=== PATIENT | female | born 1950 | race Caucasian/White ===

== ENCOUNTER 2023-02-05 22:38 | Inpatient (IN) | payer MEDICARE ==
[2023-02-05] MEDS ORDERED: ONDANSETRON 4 MG/2 ML VIAL IVP STA (22:53)
[2023-02-05] MEDS ORDERED: SODIUM CHLORIDE 0.9% 500 ML 500 ML IV STA (22:53)
[2023-02-05 23:00] LABS: Glucose,Whole Blood 280 mg/dL (70-110)
--- NOTE | 2023-02-05 23:07 | ED ---
General Adult HPI - General Source: patient, RN notes reviewed, old records reviewed Mode of arrival: ambulatory Limitations: no limitations <Herminio Marques - Last Filed: 02/08/23 07:01> <Sunil Queen - Last Filed: 02/15/23 04:56> - General Chief complaint: Abdominal Pain Stated complaint: Abdominal pain, Vomiting Time Seen by Provider: 02/05/23 22:46 - History of Present Illness Initial comments: 72-year-old female presenting for epigastric abdominal pain which is been present for the past 2 days with associated vomiting. No diarrhea. Patient reports that she had a normal bowel movement yesterday. No chest pain. No fever. She does have diabetes and states that her blood sugars have been fluctu ating between 60 and 300. (Herminio Marques) - Related Data Home Medications Medication Instructions Recorded Confirmed ARIPiprazole [Abilify] 15 mg PO DAILY 02/06/23 02/06/23 Alendronate Sodium [Fosamax] 70 mg PO Q7D 02/06/23 02/06/23 Atorvastatin [Lipitor] 40 mg PO HS 02/06/23 02/06/23 Escitalopram [Lexapro] 20 mg PO DAILY 02/06/23 02/06/23 Gabapentin 600 mg PO BID 02/06/23 02/06/23 Insulin Lispro [humaLOG Kwikpen] 6 unit SQ AC-TID 02/06/23 02/06/23 Isosorbide Mononitrate ER [Imdur] 60 mg PO DAILY 02/06/23 02/06/23 Losartan [Cozaar] 50 mg PO DAILY 02/06/23 02/06/23 Metoprolol Succinate (ER) [Toprol 50 mg PO DAILY 02/06/23 02/06/23 XL] Omeprazole 40 mg PO AC-BRKFST 02/06/23 02/06/23 amLODIPine [Norvasc] 5 mg PO DAILY 02/06/23 02/06/23 buPROPion XL [Wellbutrin XL] 300 mg PO DAILY 02/06/23 02/06/23 haloperidoL [Haldol] 1 mg PO HS 02/06/23 02/06/23 Allergies Allergy/AdvReac Type Severity Reaction Status Date / Time fentanyl Allergy Rash/Hives Verified 07/03/23 08:36 Review of Systems ROS Other: All systems not noted in ROS Statement are negative. <Herminio Marques Russell - Last Filed: 02/08/23 07:01> ROS Other: All systems not noted in ROS Statement are negative. <Sunil Queen - Last Filed: 02/15/23 04:56> ROS Statement: Those systems with pertinent positive or pertinent negative responses have been documented in the HPI. Past Medical History Past Medical History: Diabetes Mellitus Additional Past Medical History / Comment(s): early stage dementia History of Any Multi-Drug Resistant Organisms: None Reported Past Surgical History: No Surgical Hx Reported Past Psychological History: Depression, Schizophrenia Smoking Status: Never smoker Past Alcohol Use History: None Reported Past Drug Use History: None Reported <Herminio Marques Russell - Last Filed: 02/08/23 07:01> General Exam Limitations: no limitations General appearance: alert, in no apparent distress Head exam: Present: atraumatic, normocephalic Eye exam: Present: normal appearance, PERRL ENT exam: Present: normal exam Neck exam: Present: normal inspection. Absent: tenderness, meningismus Respiratory exam: Present: normal lung sounds bilaterally. Absent: respiratory distress, wheezes Cardiovascular Exam: Present: regular rate, normal rhythm GI/Abdominal exam: Present: soft, tenderness (Epigastric). Absent: distended, guarding, rebound Extremities exam: Present: normal inspection, normal capillary refill. Absent: pedal edema, calf tenderness Neurological exam: Present: alert, oriented X3, CN II-XII intact. Absent: motor sensory deficit Psychiatric exam: Present: normal affect, normal mood Skin exam: Present: warm, dry, intact. Absent: cyanosis, diaphoretic <Herminio Marques - Last Filed: 02/08/23 07:01> Course Vital Signs 02/05/23 02/05/23 02/05/23 22:41 23:36 23:38 Temperature 97.8 F Pulse Rate 85 71 Pulse Rate [ Pulse Oximetery ] Respiratory 18 18 Rate Blood Pressure 125/65 120/64 Blood Pressure [Right Arm] O2 Sat by Pulse 95 96 Oximetry 02/06/23 02/06/23 02/06/23 01:43 04:48 07:00 Temperature 98 F 98.0 F Pulse Rate 64 67 75 Pulse Rate [ 67 Pulse Oximetery ] Respiratory 18 18 16 Rate Blood Pressure 140/66 164/79 164/79 Blood Pressure 144/79 [Right Arm] O2 Sat by Pulse 97 95 95 Oximetry Medical Decision Making - Lab Data Result diagrams: 02/05/23 23:02 02/05/23 23:02 <MarinaviktoriakylieHerminio Russell - Last Filed: 02/08/23 07:01> - Lab Data Result diagrams: 02/14/23 05:46 02/14/23 05:46 <Sunil Queen - Last Filed: 02/15/23 04:56> - Medical Decision Making Was pt. sent in by a medical professional or institution (, PA, MIDDLE SCHOOL TECHNOLOGY TEACHER, urgent care, hospital, or fpc...) When possible be specific @ -No Did you speak to anyone other than the patient for history (EMS, parent, family, police, friend...)? What history was obtained from this source @ -No Did you review nursing and triage notes (agree or disagree)? Why? @ -I reviewed and agree with nursing and triage notes Were old charts reviewed (outside hosp., previous admission, EMS record, old EKG, old radiological studies, urgent care reports/EKG's, fpc records)? Report findings @ -No old charts were reviewed Differential Diagnosis (chest pain, altered mental status, abdominal pain women, abdominal pain men, vaginal bleeding, weakness, fever, dyspnea, syncope, headache, dizziness, GI bleed, back pain, seizure, CVA, palpatations, mental health, musculoskeletal)? @ -[Differential Abdominal Pain Women: Appendicitis, Cholecystitis, diverticulosis, ischemic bowel, pancreatitis, hepatitis, UTI, gastroenteritis, AAA, incarcerated hernia, bowel obstruction, constipation, inflammatory bowel, hepatitis, peptic ulcer disease, splenic infar ction, perforated viscus, this is not meant to be an all-inclusive list EKG interpreted by me (3pts min.). @ EKG: Sinus rhythm rate of 79, SC interval 133, QRS duration 100, QTC 458, no ST segment elevation X-rays interpreted by me (1pt min.). @ -None done CT interpreted by me (1pt min.). @ -None done U/S interpreted by me (1pt. min.). @ -None done What testing was considered but not performed or refused? (CT, X-rays, U/S, labs )? Why? @ -None What meds were considered but not given or refused? Why? @ -None Did you discuss the management of the patient with other professionals (professionals i.e. , PA, MIDDLE SCHOOL TECHNOLOGY TEACHER, lab, RT, psych nurse, social economist, fire extinguisher installer, teacher, safety patrol officer, vocational case manager)? Give summary @ -No Was smoking cessation discussed for >3mins.? @ -No Was critical care preformed (if so, how long)? @ -No Were there social determinants of health that impacted care today? How? (Homelessness, low income, unemployed, alcoholism, drug addiction, transportation, low edu. Level, literacy, decrease access to med. care, senior care, rehab)? @ -No Was there de-escalation of care discussed even if they declined (Discuss DNR or withdrawal of care, Hospice)? DNR status @ -No What co-morbidities impacted this encounter? (DM, HTN, Smoking, COPD, CAD, Cancer, CVA, ARF, Chemo, Hep., AIDS, mental health diagnosis, sleep apnea, morbid obesity)? @ -None Was patient admitted / discharged? Hospital course, mention meds given and route, prescriptions, significant lab abnormalities, going to OR and other pertinent info. @ Patient Shift Change Awaiting CT of Abdomen Pelvis and Reevaluation. Dr. Queen ([facility]) Was patient admitted / discharged? Hospital course, mention meds given and route, prescriptions, significant lab abnormalities, going to OR and other pertinent info. @ -[I reevaluated the patient after all of her studies were complete and she is not feeling much better. She still was not really tolerating oral intake. In light of this she'll be admitted for further hydration and to have surgical consultation related to her pain. Undiagnosed new problem with uncertain prognosis? @ -[No] Drug Therapy requiring intensive monitoring for toxicity (Heparin, Nitro, Insulin, Cardizem)? @ -[No] Were any procedures done? @ -[No] Diagnosis/symptom? @ -[Acute on chronic abdominal pain Acute enteritis Lactic acidosis Acute, or Chronic, or Acute on Chronic? @ -[default] Uncomplicated (without systemic symptoms) or Complicated (systemic symptoms)? @ -[Uncomplicated Side effects of treatment? @ -[No] Exacerbation, Progression, or Severe Exacerbation? @ -[No] Poses a threat to life or bodily function? How? (Chest pain, USA, CA, pneumonia, PE, COPD, DKA, ARF, appy, cholecystitis, CVA, Diverticulitis, Homicidal, Suicidal, threat to staff... and all critical care pts) @ -[No] (Sunil Queen) - Lab Data Lab Results 02/05/23 02/05/23 02/05/23 Range/Units 22:58 23:02 23:02 WBC 8.2 (3.8-10.6) k/uL RBC 4.23 (3.80-5.40) m/uL Hgb 12.8 (11.4-16.0) gm/dL Hct 38.7 (34.0-46.0) % MCV 91.5 (80.0-100.0) fL MCH 30.2 (25.0-35.0) pg MCHC 33.0 (31.0-37.0) g/dL RDW 13.4 (11.5-15.5) % Plt Count 228 (150-450) k/uL MPV 8.0 Immature Gran % (Auto) % Absolute Nucleated RBC % Neutrophils % 68 % Lymphocytes % 21 % Monocytes % 6 % Eosinophils % 4 % Basophils % 0 % Immature Gran # X 10*3/uL Neutrophils # 5.5 (1.3-7.7) k/uL Lymphocytes # 1.7 (1.0-4.8) k/uL Monocytes # 0.5 (0-1.0) k/uL Eosinophils # 0.3 (0-0.7) k/uL Basophils # 0.0 (0-0.2) k/uL NRBC/100 WBC Diff (0.00-0.01) X 10*3/uL PT 10.4 (9.0-12.0) sec INR 1.0 (<1.2) APTT 22.0 (22.0-30.0) sec Sodium (137-145) mmol/L Potassium (3.5-5.1) mmol/L Chloride (98-107) mmol/L Carbon Dioxide (22-30) mmol/L Anion Gap mmol/L BUN (7-17) mg/dL Creatinine (0.52-1.04) mg/dL Est GFR (CKD-EPI) (>=60) Est GFR (CKD-EPI)AfAm (>60 ml/min/1.73 sqM) Est GFR (CKD-EPI)NonAf (>60 ml/min/1.73 sqM) BUN/Creatinine Ratio (12.00-20.00) Ratio Glucose (74-99) mg/dL POC Glucose (mg/dL) 280 H (70-110) mg/dL POC Glu Size Marker ID Markus Gustafson Lactic Ac Sepsis Rflx Plasma Lactic Acid Florentin (0.7-2.0) mmol/L Calcium (8.4-10.2) mg/dL Phosphorus (2.5-4.5) mg/dL Magnesium (1.6-2.3) mg/dL Total Bilirubin (0.2-1.3) mg/dL AST (14-36) U/L ALT (4-34) U/L Alkaline Phosphatase (38-126) U/L Troponin I (0.000-0.034) ng/mL Total Protein (6.3-8.2) g/dL Albumin (3.5-5.0) g/dL Globulin g/dL Albumin/Globulin Ratio Amylase (30-110) U/L Lipase (23-300) U/L 02/05/23 02/05/23 02/05/23 Range/Units 23:02 23:02 23:02 WBC (3.8-10.6) k/uL RBC (3.80-5.40) m/uL Hgb (11.4-16.0) gm/dL Hct (34.0-46.0) % MCV (80.0-100.0) fL MCH (25.0-35.0) pg MCHC (31.0-37.0) g/dL RDW (11.5-15.5) % Plt Count (150-450) k/uL MPV Immature Gran % (Auto) % Absolute Nucleated RBC % Neutrophils % % Lymphocytes % % Monocytes % % Eosinophils % % Basophils % % Immature Gran # X 10*3/uL Neutrophils # (1.3-7.7) k/uL Lymphocytes # (1.0-4.8) k/uL Monocytes # (0-1.0) k/uL Eosinophils # (0-0.7) k/uL Basophils # (0-0.2) k/uL NRBC/100 WBC Diff (0.00-0.01) X 10*3/uL PT (9.0-12.0) sec INR (<1.2) APTT (22.0-30.0) sec Sodium 132 L (137-145) mmol/L Potassium 4.2 (3.5-5.1) mmol/L Chloride 101 (98-107) mmol/L Carbon Dioxide 22 (22-30) mmol/L Anion Gap 9 mmol/L BUN 17 (7-17) mg/dL Creatinine 0.52 (0.52-1.04) mg/dL Est GFR (CKD-EPI) (>=60) Est GFR (CKD-EPI)AfAm >90 (>60 ml/min/1.73 sqM) Est GFR (CKD-EPI)NonAf >90 (>60 ml/min/1.73 sqM) BUN/Creatinine Ratio (12.00-20.00) Ratio Glucose 283 H (74-99) mg/dL POC Glucose (mg/dL) (70-110) mg/dL POC Glu Size Marker ID Lactic Ac Sepsis Rflx Plasma Lactic Acid Florentin 4.0 H* (0.7-2.0) mmol/L Calcium 9.3 (8.4-10.2) mg/dL Phosphorus (2.5-4.5) mg/dL Magnesium (1.6-2.3) mg/dL Total Bilirubin 0.6 (0.2-1.3) mg/dL AST 32 (14-36) U/L ALT 24 (4-34) U/L Alkaline Phosphatase 87 (38-126) U/L Troponin I <0.012 (0.000-0.034) ng/mL Total Protein 5.7 L (6.3-8.2) g/dL Albumin 3.1 L (3.5-5.0) g/dL Globulin g/dL Albumin/Globulin Ratio Amylase 85 (30-110) U/L Lipase 223 (23-300) U/L 02/05/23 02/06/23 02/06/23 Range/Units 23:44 02:24 03:07 WBC (3.8-10.6) k/uL RBC (3.80-5.40) m/uL Hgb (11.4-16.0) gm/dL Hct (34.0-46.0) % MCV (80.0-100.0) fL MCH (25.0-35.0) pg MCHC (31.0-37.0) g/dL RDW (11.5-15.5) % Plt Count (150-450) k/uL MPV Immature Gran % (Auto) % Absolute Nucleated RBC % Neutrophils % % Lymphocytes % % Monocytes % % Eosinophils % % Basophils % % Immature Gran # X 10*3/uL Neutrophils # (1.3-7.7) k/uL Lymphocytes # (1.0-4.8) k/uL Monocytes # (0-1.0) k/uL Eosinophils # (0-0.7) k/uL Basophils # (0-0.2) k/uL NRBC/100 WBC Diff (0.00-0.01) X 10*3/uL PT (9.0-12.0) sec INR (<1.2) APTT (22.0-30.0) sec Sodium (137-145) mmol/L Potassium (3.5-5.1) mmol/L Chloride (98-107) mmol/L Carbon Dioxide (22-30) mmol/L Anion Gap mmol/L BUN (7-17) mg/dL Creatinine (0.52-1.04) mg/dL Est GFR (CKD-EPI) (>=60) Est GFR (CKD-EPI)AfAm (>60 ml/min/1.73 sqM) Est GFR (CKD-EPI)NonAf (>60 ml/min/1.73 sqM) BUN/Creatinine Ratio (12.00-20.00) Ratio Glucose (74-99) mg/dL POC Glucose (mg/dL) (70-110) mg/dL POC Glu Size Marker ID Lactic Ac Sepsis Rflx Y Y Plasma Lactic Acid Florentin 3.3 H* (0.7-2.0) mmol/L Calcium (8.4-10.2) mg/dL Phosphorus (2.5-4.5) mg/dL Magnesium (1.6-2.3) mg/dL Total Bilirubin (0.2-1.3) mg/dL AST (14-36) U/L ALT (4-34) U/L Alkaline Phosphatase (38-126) U/L Troponin I (0.000-0.034) ng/mL Total Protein (6.3-8.2) g/dL Albumin (3.5-5.0) g/dL Globulin g/dL Albumin/Globulin Ratio Amylase (30-110) U/L Lipase (23-300) U/L 02/06/23 02/06/23 02/06/23 Range/Units 04:52 06:20 06:46 WBC (3.8-10.6) k/uL RBC (3.80-5.40) m/uL Hgb (11.4-16.0) gm/dL Hct (34.0-46.0) % MCV (80.0-100.0) fL MCH (25.0-35.0) pg MCHC (31.0-37.0) g/dL RDW (11.5-15.5) % Plt Count (150-450) k/uL MPV Immature Gran % (Auto) % Absolute Nucleated RBC % Neutrophils % % Lymphocytes % % Monocytes % % Eosinophils % % Basophils % % Immature Gran # X 10*3/uL Neutrophils # (1.3-7.7) k/uL Lymphocytes # (1.0-4.8) k/uL Monocytes # (0-1.0) k/uL Eosinophils # (0-0.7) k/uL Basophils # (0-0.2) k/uL NRBC/100 WBC Diff (0.00-0.01) X 10*3/uL PT (9.0-12.0) sec INR (<1.2) APTT (22.0-30.0) sec Sodium (137-145) mmol/L Potassium (3.5-5.1) mmol/L Chloride (98-107) mmol/L Carbon Dioxide (22-30) mmol/L Anion Gap mmol/L BUN (7-17) mg/dL Creatinine (0.52-1.04) mg/dL Est GFR (CKD-EPI) (>=60) Est GFR (CKD-EPI)AfAm (>60 ml/min/1.73 sqM) Est GFR (CKD-EPI)NonAf (>60 ml/min/1.73 sqM) BUN/Creatinine Ratio (12.00-20.00) Ratio Glucose (74-99) mg/dL POC Glucose (mg/dL) 109 (70-110) mg/dL POC Glu Size Marker ID Fernanda Lund Lactic Ac Sepsis Rflx Y Plasma Lactic Acid Florentin 2.7 H* (0.7-2.0) mmol/L Calcium (8.4-10.2) mg/dL Phosphorus (2.5-4.5) mg/dL Magnesium (1.6-2.3) mg/dL Total Bilirubin (0.2-1.3) mg/dL AST (14-36) U/L ALT (4-34) U/L Alkaline Phosphatase (38-126) U/L Troponin I (0.000-0.034) ng/mL Total Protein (6.3-8.2) g/dL Albumin (3.5-5.0) g/dL Globulin g/dL Albumin/Globulin Ratio Amylase (30-110) U/L Lipase (23-300) U/L 02/06/23 02/06/23 02/06/23 Range/Units 09:15 10:02 12:16 WBC 6.3 (3.8-10.6) k/uL RBC 4.26 (3.80-5.40) m/uL Hgb 13.2 (11.4-16.0) gm/dL Hct 38.6 (34.0-46.0) % MCV 90.8 (80.0-100.0) fL MCH 31.0 (25.0-35.0) pg MCHC 34.2 (31.0-37.0) g/dL RDW 13.5 (11.5-15.5) % Plt Count 203 (150-450) k/uL MPV 9.0 Immature Gran % (Auto) % Absolute Nucleated RBC % Neutrophils % % Lymphocytes % % Monocytes % % Eosinophils % % Basophils % % Immature Gran # X 10*3/uL Neutrophils # (1.3-7.7) k/uL Lymphocytes # (1.0-4.8) k/uL Monocytes # (0-1.0) k/uL Eosinophils # (0-0.7) k/uL Basophils # (0-0.2) k/uL NRBC/100 WBC Diff (0.00-0.01) X 10*3/uL PT (9.0-12.0) sec INR (<1.2) APTT (22.0-30.0) sec Sodium (137-145) mmol/L Potassium (3.5-5.1) mmol/L Chloride (98-107) mmol/L Carbon Dioxide (22-30) mmol/L Anion Gap mmol/L BUN (7-17) mg/dL Creatinine (0.52-1.04) mg/dL Est GFR (CKD-EPI) (>=60) Est GFR (CKD-EPI)AfAm (>60 ml/min/1.73 sqM) Est GFR (CKD-EPI)NonAf (>60 ml/min/1.73 sqM) BUN/Creatinine Ratio (12.00-20.00) Ratio Glucose (74-99) mg/dL POC Glucose (mg/dL) (70-110) mg/dL POC Glu Size Marker ID Lactic Ac Sepsis Rflx Y Plasma Lactic Acid Florentin 3.2 H* (0.7-2.0) mmol/L Calcium (8.4-10.2) mg/dL Phosphorus (2.5-4.5) mg/dL Magnesium (1.6-2.3) mg/dL Total Bilirubin (0.2-1.3) mg/dL AST (14-36) U/L ALT (4-34) U/L Alkaline Phosphatase (38-126) U/L Troponin I (0.000-0.034) ng/mL Total Protein (6.3-8.2) g/dL Albumin (3.5-5.0) g/dL Globulin g/dL Albumin/Globulin Ratio Amylase (30-110) U/L Lipase (23-300) U/L 02/06/23 02/06/23 02/06/23 Range/Units 12:16 12:16 12:45 WBC (3.8-10.6) k/uL RBC (3.80-5.40) m/uL Hgb (11.4-16.0) gm/dL Hct (34.0-46.0) % MCV (80.0-100.0) fL MCH (25.0-35.0) pg MCHC (31.0-37.0) g/dL RDW (11.5-15.5) % Plt Count (150-450) k/uL MPV Immature Gran % (Auto) % Absolute Nucleated RBC % Neutrophils % % Lymphocytes % % Monocytes % % Eosinophils % % Basophils % % Immature Gran # X 10*3/uL Neutrophils # (1.3-7.7) k/uL Lymphocytes # (1.0-4.8) k/uL Monocytes # (0-1.0) k/uL Eosinophils # (0-0.7) k/uL Basophils # (0-0.2) k/uL NRBC/100 WBC Diff (0.00-0.01) X 10*3/uL PT (9.0-12.0) sec INR (<1.2) APTT (22.0-30.0) sec Sodium 137 (137-145) mmol/L Potassium 4.0 (3.5-5.1) mmol/L Chloride 107 (98-107) mmol/L Carbon Dioxide 25 (22-30) mmol/L Anion Gap 5 mmol/L BUN 9 (7-17) mg/dL Creatinine 0.40 L (0.52-1.04) mg/dL Est GFR (CKD-EPI) (>=60) Est GFR (CKD-EPI)AfAm >90 (>60 ml/min/1.73 sqM) Est GFR (CKD-EPI)NonAf >90 (>60 ml/min/1.73 sqM) BUN/Creatinine Ratio (12.00-20.00) Ratio Glucose 162 H (74-99) mg/dL POC Glucose (mg/dL) (70-110) mg/dL POC Glu Size Marker ID Lactic Ac Sepsis Rflx Y Plasma Lactic Acid Florentin 2.7 H* (0.7-2.0) mmol/L Calcium 8.6 (8.4-10.2) mg/dL Phosphorus 2.8 (2.5-4.5) mg/dL Magnesium 1.2 L (1.6-2.3) mg/dL Total Bilirubin 0.7 (0.2-1.3) mg/dL AST 26 (14-36) U/L ALT 21 (4-34) U/L Alkaline Phosphatase 71 (38-126) U/L Troponin I (0.000-0.034) ng/mL Total Protein 5.2 L (6.3-8.2) g/dL Albumin 2.9 L (3.5-5.0) g/dL Globulin 2.3 g/dL Albumin/Globulin Ratio 1.3 Amylase (30-110) U/L Lipase (23-300) U/L 02/06/23 02/06/23 02/06/23 Range/Units 15:28 16:57 20:07 WBC (3.8-10.6) k/uL RBC (3.80-5.40) m/uL Hgb (11.4-16.0) gm/dL Hct (34.0-46.0) % MCV (80.0-100.0) fL MCH (25.0-35.0) pg MCHC (31.0-37.0) g/dL RDW (11.5-15.5) % Plt Count (150-450) k/uL MPV Immature Gran % (Auto) % Absolute Nucleated RBC % Neutrophils % % Lymphocytes % % Monocytes % % Eosinophils % % Basophils % % Immature Gran # X 10*3/uL Neutrophils # (1.3-7.7) k/uL Lymphocytes # (1.0-4.8) k/uL Monocytes # (0-1.0) k/uL Eosinophils # (0-0.7) k/uL Basophils # (0-0.2) k/uL NRBC/100 WBC Diff (0.00-0.01) X 10*3/uL PT (9.0-12.0) sec INR (<1.2) APTT (22.0-30.0) sec Sodium (137-145) mmol/L Potassium (3.5-5.1) mmol/L Chloride (98-107) mmol/L Carbon Dioxide (22-30) mmol/L Anion Gap mmol/L BUN (7-17) mg/dL Creatinine (0.52-1.04) mg/dL Est GFR (CKD-EPI) (>=60) Est GFR (CKD-EPI)AfAm (>60 ml/min/1.73 sqM) Est GFR (CKD-EPI)NonAf (>60 ml/min/1.73 sqM) BUN/Creatinine Ratio (12.00-20.00) Ratio Glucose (74-99) mg/dL POC Glucose (mg/dL) 96 96 (70-110) mg/dL POC Glu Size Marker ID Tuan, Trang Magno, Odalis Lactic Ac Sepsis Rflx Plasma Lactic Acid Florentin 1.8 (0.7-2.0) mmol/L Calcium (8.4-10.2) mg/dL Phosphorus (2.5-4.5) mg/dL Magnesium (1.6-2.3) mg/dL Total Bilirubin (0.2-1.3) mg/dL AST (14-36) U/L ALT (4-34) U/L Alkaline Phosphatase (38-126) U/L Troponin I (0.000-0.034) ng/mL Total Protein (6.3-8.2) g/dL Albumin (3.5-5.0) g/dL Globulin g/dL Albumin/Globulin Ratio Amylase (30-110) U/L Lipase (23-300) U/L 02/07/23 02/07/23 02/07/23 Range/Units 02:12 06:15 11:39 WBC (3.8-10.6) k/uL RBC (3.80-5.40) m/uL Hgb (11.4-16.0) gm/dL Hct (34.0-46.0) % MCV (80.0-100.0) fL MCH (25.0-35.0) pg MCHC (31.0-37.0) g/dL RDW (11.5-15.5) % Plt Count (150-450) k/uL MPV Immature Gran % (Auto) % Absolute Nucleated RBC % Neutrophils % % Lymphocytes % % Monocytes % % Eosinophils % % Basophils % % Immature Gran # X 10*3/uL Neutrophils # (1.3-7.7) k/uL Lymphocytes # (1.0-4.8) k/uL Monocytes # (0-1.0) k/uL Eosinophils # (0-0.7) k/uL Basophils # (0-0.2) k/uL NRBC/100 WBC Diff (0.00-0.01) X 10*3/uL PT (9.0-12.0) sec INR (<1.2) APTT (22.0-30.0) sec Sodium (137-145) mmol/L Potassium (3.5-5.1) mmol/L Chloride (98-107) mmol/L Carbon Dioxide (22-30) mmol/L Anion Gap mmol/L BUN (7-17) mg/dL Creatinine (0.52-1.04) mg/dL Est GFR (CKD-EPI) (>=60) Est GFR (CKD-EPI)AfAm (>60 ml/min/1.73 sqM) Est GFR (CKD-EPI)NonAf (>60 ml/min/1.73 sqM) BUN/Creatinine Ratio (12.00-20.00) Ratio Glucose (74-99) mg/dL POC Glucose (mg/dL) 102 95 199 H (70-110) mg/dL POC Glu Size Marker MILO Kiran, Odalis Kiran, Odalis Jackson, Bernadette Lactic Ac Sepsis Rflx Plasma Lactic Acid Florentin (0.7-2.0) mmol/L Calcium (8.4-10.2) mg/dL Phosphorus (2.5-4.5) mg/dL Magnesium (1.6-2.3) mg/dL Total Bilirubin (0.2-1.3) mg/dL AST (14-36) U/L ALT (4-34) U/L Alkaline Phosphatase (38-126) U/L Troponin I (0.000-0.034) ng/mL Total Protein (6.3-8.2) g/dL Albumin (3.5-5.0) g/dL Globulin g/dL Albumin/Globulin Ratio Amylase (30-110) U/L Lipase (23-300) U/L 02/07/23 02/07/23 02/07/23 Range/Units 13:03 13:03 17:18 WBC 5.8 (3.8-10.6) k/uL RBC 4.19 (3.80-5.40) m/uL Hgb 12.5 (11.4-16.0) gm/dL Hct 38.5 (34.0-46.0) % MCV 91.8 (80.0-100.0) fL MCH 29.8 (25.0-35.0) pg MCHC 32.4 (31.0-37.0) g/dL RDW 13.8 (11.5-15.5) % Plt Count 233 (150-450) k/uL MPV 7.9 Immature Gran % (Auto) % Absolute Nucleated RBC % Neutrophils % 54 % Lymphocytes % 25 % Monocytes % 7 % Eosinophils % 10 % Basophils % 0 % Immature Gran # X 10*3/uL Neutrophils # 3.1 (1.3-7.7) k/uL Lymphocytes # 1.4 (1.0-4.8) k/uL Monocytes # 0.4 (0-1.0) k/uL Eosinophils # 0.6 (0-0.7) k/uL Basophils # 0.0 (0-0.2) k/uL NRBC/100 WBC Diff (0.00-0.01) X 10*3/uL PT (9.0-12.0) sec INR (<1.2) APTT (22.0-30.0) sec Sodium 137 (137-145) mmol/L Potassium 4.2 (3.5-5.1) mmol/L Chloride 103 (98-107) mmol/L Carbon Dioxide 33 H (22-30) mmol/L Anion Gap 1 mmol/L BUN 4 L (7-17) mg/dL Creatinine 0.58 (0.52-1.04) mg/dL Est GFR (CKD-EPI) (>=60) Est GFR (CKD-EPI)AfAm >90 (>60 ml/min/1.73 sqM) Est GFR (CKD-EPI)NonAf >90 (>60 ml/min/1.73 sqM) BUN/Creatinine Ratio (12.00-20.00) Ratio Glucose 201 H (74-99) mg/dL POC Glucose (mg/dL) 151 H (70-110) mg/dL POC Glu Size Marker ID Daphnie Elizondo Lactic Ac Sepsis Rflx Plasma Lactic Acid Florentin (0.7-2.0) mmol/L Calcium 8.3 L (8.4-10.2) mg/dL Phosphorus (2.5-4.5) mg/dL Magnesium (1.6-2.3) mg/dL Total Bilirubin (0.2-1.3) mg/dL AST (14-36) U/L ALT (4-34) U/L Alkaline Phosphatase (38-126) U/L Troponin I (0.000-0.034) ng/mL Total Protein (6.3-8.2) g/dL Albumin (3.5-5.0) g/dL Globulin g/dL Albumin/Globulin Ratio Amylase (30-110) U/L Lipase (23-300) U/L 02/07/23 02/08/23 02/08/23 Range/Units 20:33 05:58 05:58 WBC 5.98 (3.8-10.6) k/uL RBC 4.02 L (3.80-5.40) m/uL Hgb 12.1 (11.4-16.0) gm/dL Hct 36.8 L (34.0-46.0) % MCV 91.5 (80.0-100.0) fL MCH 30.1 (25.0-35.0) pg MCHC 32.9 (31.0-37.0) g/dL RDW 13.2 (11.5-15.5) % Plt Count 234 (150-450) k/uL MPV 10.6 Immature Gran % (Auto) 0.20 % Absolute Nucleated RBC 0 % Neutrophils % 35.3 % Lymphocytes % 35.6 % Monocytes % 16.4 % Eosinophils % 11.7 % Basophils % 0.8 % Immature Gran # 0.01 X 10*3/uL Neutrophils # 2.11 (1.3-7.7) k/uL Lymphocytes # 2.13 (1.0-4.8) k/uL Monocytes # 0.98 (0-1.0) k/uL Eosinophils # 0.70 H (0-0.7) k/uL Basophils # 0.05 (0-0.2) k/uL NRBC/100 WBC Diff 0 (0.00-0.01) X 10*3/uL PT (9.0-12.0) sec INR (<1.2) APTT (22.0-30.0) sec Sodium 147 H (137-145) mmol/L Potassium 4.1 (3.5-5.1) mmol/L Chloride 110 H (98-107) mmol/L Carbon Dioxide 29.4 (22-30) mmol/L Anion Gap 7.60 mmol/L BUN 4.1 L (7-17) mg/dL Creatinine 0.6 (0.52-1.04) mg/dL Est GFR (CKD-EPI) 95 (>=60) Est GFR (CKD-EPI)AfAm (>60 ml/min/1.73 sqM) Est GFR (CKD-EPI)NonAf (>60 ml/min/1.73 sqM) BUN/Creatinine Ratio 6.83 L (12.00-20.00) Ratio Glucose 110 (74-99) mg/dL POC Glucose (mg/dL) 109 (70-110) mg/dL POC Glu Size Marker ID Anushka Sanchez Lactic Ac Sepsis Rflx Plasma Lactic Acid Florentin (0.7-2.0) mmol/L Calcium 8.4 L (8.4-10.2) mg/dL Phosphorus (2.5-4.5) mg/dL Magnesium (1.6-2.3) mg/dL Total Bilirubin (0.2-1.3) mg/dL AST (14-36) U/L ALT (4-34) U/L Alkaline Phosphatase (38-126) U/L Troponin I (0.000-0.034) ng/mL Total Protein (6.3-8.2) g/dL Albumin (3.5-5.0) g/dL Globulin g/dL Albumin/Globulin Ratio Amylase (30-110) U/L Lipase (23-300) U/L 02/08/23 02/08/23 02/08/23 Range/Units 06:15 12:44 17:39 WBC (3.8-10.6) k/uL RBC (3.80-5.40) m/uL Hgb (11.4-16.0) gm/dL Hct (34.0-46.0) % MCV (80.0-100.0) fL MCH (25.0-35.0) pg MCHC (31.0-37.0) g/dL RDW (11.5-15.5) % Plt Count (150-450) k/uL MPV Immature Gran % (Auto) % Absolute Nucleated RBC % Neutrophils % % Lymphocytes % % Monocytes % % Eosinophils % % Basophils % % Immature Gran # X 10*3/uL Neutrophils # (1.3-7.7) k/uL Lymphocytes # (1.0-4.8) k/uL Monocytes # (0-1.0) k/uL Eosinophils # (0-0.7) k/uL Basophils # (0-0.2) k/uL NRBC/100 WBC Diff (0.00-0.01) X 10*3/uL PT (9.0-12.0) sec INR (<1.2) APTT (22.0-30.0) sec Sodium (137-145) mmol/L Potassium (3.5-5.1) mmol/L Chloride (98-107) mmol/L Carbon Dioxide (22-30) mmol/L Anion Gap mmol/L BUN (7-17) mg/dL Creatinine (0.52-1.04) mg/dL Est GFR (CKD-EPI) (>=60) Est GFR (CKD-EPI)AfAm (>60 ml/min/1.73 sqM) Est GFR (CKD-EPI)NonAf (>60 ml/min/1.73 sqM) BUN/Creatinine Ratio (12.00-20.00) Ratio Glucose (74-99) mg/dL POC Glucose (mg/dL) 111 H 198 H 131 H (70-110) mg/dL POC Glu Size Marker MILO Sanchez, Anushka Pinzon, Odalis Nelson, Derik Lactic Ac Sepsis Rflx Plasma Lactic Acid Florentin (0.7-2.0) mmol/L Calcium (8.4-10.2) mg/dL Phosphorus (2.5-4.5) mg/dL Magnesium (1.6-2.3) mg/dL Total Bilirubin (0.2-1.3) mg/dL AST (14-36) U/L ALT (4-34) U/L Alkaline Phosphatase (38-126) U/L Troponin I (0.000-0.034) ng/mL Total Protein (6.3-8.2) g/dL Albumin (3.5-5.0) g/dL Globulin g/dL Albumin/Globulin Ratio Amylase (30-110) U/L Lipase (23-300) U/L 02/08/23 02/09/23 02/09/23 Range/Units 20:15 00:06 01:35 WBC (3.8-10.6) k/uL RBC (3.80-5.40) m/uL Hgb (11.4-16.0) gm/dL Hct (34.0-46.0) % MCV (80.0-100.0) fL MCH (25.0-35.0) pg MCHC (31.0-37.0) g/dL RDW (11.5-15.5) % Plt Count (150-450) k/uL MPV Immature Gran % (Auto) % Absolute Nucleated RBC % Neutrophils % % Lymphocytes % % Monocytes % % Eosinophils % % Basophils % % Immature Gran # X 10*3/uL Neutrophils # (1.3-7.7) k/uL Lymphocytes # (1.0-4.8) k/uL Monocytes # (0-1.0) k/uL Eosinophils # (0-0.7) k/uL Basophils # (0-0.2) k/uL NRBC/100 WBC Diff (0.00-0.01) X 10*3/uL PT (9.0-12.0) sec INR (<1.2) APTT (22.0-30.0) sec Sodium (137-145) mmol/L Potassium (3.5-5.1) mmol/L Chloride (98-107) mmol/L Carbon Dioxide (22-30) mmol/L Anion Gap mmol/L BUN (7-17) mg/dL Creatinine (0.52-1.04) mg/dL Est GFR (CKD-EPI) (>=60) Est GFR (CKD-EPI)AfAm (>60 ml/min/1.73 sqM) Est GFR (CKD-EPI)NonAf (>60 ml/min/1.73 sqM) BUN/Creatinine Ratio (12.00-20.00) Ratio Glucose (74-99) mg/dL POC Glucose (mg/dL) 156 H 83 71 (70-110) mg/dL POC Glu Size Marker ID Carrier, Fernanda Carrier, Fernanda Carrier, Fernanda Lactic Ac Sepsis Rflx Plasma Lactic Acid Florentin (0.7-2.0) mmol/L Calcium (8.4-10.2) mg/dL Phosphorus (2.5-4.5) mg/dL Magnesium (1.6-2.3) mg/dL Total Bilirubin (0.2-1.3) mg/dL AST (14-36) U/L ALT (4-34) U/L Alkaline Phosphatase (38-126) U/L Troponin I (0.000-0.034) ng/mL Total Protein (6.3-8.2) g/dL Albumin (3.5-5.0) g/dL Globulin g/dL Albumin/Globulin Ratio Amylase (30-110) U/L Lipase (23-300) U/L 02/09/23 02/09/23 02/09/23 Range/Units 06:05 07:16 07:18 WBC (3.8-10.6) k/uL RBC (3.80-5.40) m/uL Hgb (11.4-16.0) gm/dL Hct (34.0-46.0) % MCV (80.0-100.0) fL MCH (25.0-35.0) pg MCHC (31.0-37.0) g/dL RDW (11.5-15.5) % Plt Count (150-450) k/uL MPV Immature Gran % (Auto) % Absolute Nucleated RBC % Neutrophils % % Lymphocytes % % Monocytes % % Eosinophils % % Basophils % % Immature Gran # X 10*3/uL Neutrophils # (1.3-7.7) k/uL Lymphocytes # (1.0-4.8) k/uL Monocytes # (0-1.0) k/uL Eosinophils # (0-0.7) k/uL Basophils # (0-0.2) k/uL NRBC/100 WBC Diff (0.00-0.01) X 10*3/uL PT (9.0-12.0) sec INR (<1.2) APTT (22.0-30.0) sec Sodium (137-145) mmol/L Potassium (3.5-5.1) mmol/L Chloride (98-107) mmol/L Carbon Dioxide (22-30) mmol/L Anion Gap mmol/L BUN (7-17) mg/dL Creatinine (0.52-1.04) mg/dL Est GFR (CKD-EPI) (>=60) Est GFR (CKD-EPI)AfAm (>60 ml/min/1.73 sqM) Est GFR (CKD-EPI)NonAf (>60 ml/min/1.73 sqM) BUN/Creatinine Ratio (12.00-20.00) Ratio Glucose (74-99) mg/dL POC Glucose (mg/dL) 99 81 73 (70-110) mg/dL POC Glu Size Marker ID Carrier, Fernanda Jeromy, Odalis Jeromy, Odalis Lactic Ac Sepsis Rflx Plasma Lactic Acid Florentin (0.7-2.0) mmol/L Calcium (8.4-10.2) mg/dL Phosphorus (2.5-4.5) mg/dL Magnesium (1.6-2.3) mg/dL Total Bilirubin (0.2-1.3) mg/dL AST (14-36) U/L ALT (4-34) U/L Alkaline Phosphatase (38-126) U/L Troponin I (0.000-0.034) ng/mL Total Protein (6.3-8.2) g/dL Albumin (3.5-5.0) g/dL Globulin g/dL Albumin/Globulin Ratio Amylase (30-110) U/L Lipase (23-300) U/L 02/09/23 02/09/23 02/09/23 Range/Units 07:30 07:30 12:40 WBC 6.61 (3.8-10.6) k/uL RBC 4.07 L (3.80-5.40) m/uL Hgb 12.2 (11.4-16.0) gm/dL Hct 37.5 (34.0-46.0) % MCV 92.1 (80.0-100.0) fL MCH 30.0 (25.0-35.0) pg MCHC 32.5 (31.0-37.0) g/dL RDW 13.4 (11.5-15.5) % Plt Count 238 (150-450) k/uL MPV 10.4 Immature Gran % (Auto) 0.20 % Absolute Nucleated RBC 0 % Neutrophils % 33.6 % Lymphocytes % 38.7 % Monocytes % 16.6 % Eosinophils % 10.3 % Basophils % 0.6 % Immature Gran # 0.01 X 10*3/uL Neutrophils # 2.22 (1.3-7.7) k/uL Lymphocytes # 2.56 (1.0-4.8) k/uL Monocytes # 1.10 H (0-1.0) k/uL Eosinophils # 0.68 H (0-0.7) k/uL Basophils # 0.04 (0-0.2) k/uL NRBC/100 WBC Diff 0 (0.00-0.01) X 10*3/uL PT (9.0-12.0) sec INR (<1.2) APTT (22.0-30.0) sec Sodium 147 H (137-145) mmol/L Potassium 4.1 (3.5-5.1) mmol/L Chloride 110 H (98-107) mmol/L Carbon Dioxide 30.6 (22-30) mmol/L Anion Gap 6.40 mmol/L BUN <3.5 L (7-17) mg/dL Creatinine 0.7 (0.52-1.04) mg/dL Est GFR (CKD-EPI) 92 (>=60) Est GFR (CKD-EPI)AfAm (>60 ml/min/1.73 sqM) Est GFR (CKD-EPI)NonAf (>60 ml/min/1.73 sqM) BUN/Creatinine Ratio <5.00 L (12.00-20.00) Ratio Glucose 81 (74-99) mg/dL POC Glucose (mg/dL) 121 H (70-110) mg/dL POC Glu Size Marker ID Odalis Pinzon Lactic Ac Sepsis Rflx Plasma Lactic Acid Florentin (0.7-2.0) mmol/L Calcium 8.8 (8.4-10.2) mg/dL Phosphorus (2.5-4.5) mg/dL Magnesium (1.6-2.3) mg/dL Total Bilirubin 0.4 (0.2-1.3) mg/dL AST 21 (14-36) U/L ALT 17 (4-34) U/L Alkaline Phosphatase 45 (38-126) U/L Troponin I (0.000-0.034) ng/mL Total Protein 4.6 L (6.3-8.2) g/dL Albumin 3.0 L (3.5-5.0) g/dL Globulin 1.6 g/dL Albumin/Globulin Ratio 1.88 Amylase (30-110) U/L Lipase (23-300) U/L 02/09/23 02/09/23 02/10/23 Range/Units 17:44 19:33 06:05 WBC (3.8-10.6) k/uL RBC (3.80-5.40) m/uL Hgb (11.4-16.0) gm/dL Hct (34.0-46.0) % MCV (80.0-100.0) fL MCH (25.0-35.0) pg MCHC (31.0-37.0) g/dL RDW (11.5-15.5) % Plt Count (150-450) k/uL MPV Immature Gran % (Auto) % Absolute Nucleated RBC % Neutrophils % % Lymphocytes % % Monocytes % % Eosinophils % % Basophils % % Immature Gran # X 10*3/uL Neutrophils # (1.3-7.7) k/uL Lymphocytes # (1.0-4.8) k/uL Monocytes # (0-1.0) k/uL Eosinophils # (0-0.7) k/uL Basophils # (0-0.2) k/uL NRBC/100 WBC Diff (0.00-0.01) X 10*3/uL PT (9.0-12.0) sec INR (<1.2) APTT (22.0-30.0) sec Sodium (137-145) mmol/L Potassium (3.5-5.1) mmol/L Chloride (98-107) mmol/L Carbon Dioxide (22-30) mmol/L Anion Gap mmol/L BUN (7-17) mg/dL Creatinine (0.52-1.04) mg/dL Est GFR (CKD-EPI) (>=60) Est GFR (CKD-EPI)AfAm (>60 ml/min/1.73 sqM) Est GFR (CKD-EPI)NonAf (>60 ml/min/1.73 sqM) BUN/Creatinine Ratio (12.00-20.00) Ratio Glucose (74-99) mg/dL POC Glucose (mg/dL) 158 H 164 H 63 L (70-110) mg/dL POC Glu Size Marker Odalis Keane, Anushka Sanchez, Anushka Reyes Ac Sepsis Rflx Plasma Lactic Acid Florentin (0.7-2.0) mmol/L Calcium (8.4-10.2) mg/dL Phosphorus (2.5-4.5) mg/dL Magnesium (1.6-2.3) mg/dL Total Bilirubin (0.2-1.3) mg/dL AST (14-36) U/L ALT (4-34) U/L Alkaline Phosphatase (38-126) U/L Troponin I (0.000-0.034) ng/mL Total Protein (6.3-8.2) g/dL Albumin (3.5-5.0) g/dL Globulin g/dL Albumin/Globulin Ratio Amylase (30-110) U/L Lipase (23-300) U/L 02/10/23 02/10/23 02/10/23 Range/Units 06:39 12:22 17:22 WBC (3.8-10.6) k/uL RBC (3.80-5.40) m/uL Hgb (11.4-16.0) gm/dL Hct (34.0-46.0) % MCV (80.0-100.0) fL MCH (25.0-35.0) pg MCHC (31.0-37.0) g/dL RDW (11.5-15.5) % Plt Count (150-450) k/uL MPV Immature Gran % (Auto) % Absolute Nucleated RBC % Neutrophils % % Lymphocytes % % Monocytes % % Eosinophils % % Basophils % % Immature Gran # X 10*3/uL Neutrophils # (1.3-7.7) k/uL Lymphocytes # (1.0-4.8) k/uL Monocytes # (0-1.0) k/uL Eosinophils # (0-0.7) k/uL Basophils # (0-0.2) k/uL NRBC/100 WBC Diff (0.00-0.01) X 10*3/uL PT (9.0-12.0) sec INR (<1.2) APTT (22.0-30.0) sec Sodium (137-145) mmol/L Potassium (3.5-5.1) mmol/L Chloride (98-107) mmol/L Carbon Dioxide (22-30) mmol/L Anion Gap mmol/L BUN (7-17) mg/dL Creatinine (0.52-1.04) mg/dL Est GFR (CKD-EPI) (>=60) Est GFR (CKD-EPI)AfAm (>60 ml/min/1.73 sqM) Est GFR (CKD-EPI)NonAf (>60 ml/min/1.73 sqM) BUN/Creatinine Ratio (12.00-20.00) Ratio Glucose (74-99) mg/dL POC Glucose (mg/dL) 95 167 H 117 H (70-110) mg/dL POC Glu Size Marker ID Nael Mensahmichael Zamudioes, Odalis Kiran, Odalis Lactic Ac Sepsis Rflx Plasma Lactic Acid Florentin (0.7-2.0) mmol/L Calcium (8.4-10.2) mg/dL Phosphorus (2.5-4.5) mg/dL Magnesium (1.6-2.3) mg/dL Total Bilirubin (0.2-1.3) mg/dL AST (14-36) U/L ALT (4-34) U/L Alkaline Phosphatase (38-126) U/L Troponin I (0.000-0.034) ng/mL Total Protein (6.3-8.2) g/dL Albumin (3.5-5.0) g/dL Globulin g/dL Albumin/Globulin Ratio Amylase (30-110) U/L Lipase (23-300) U/L 02/10/23 02/11/23 02/11/23 Range/Units 20:06 06:14 06:32 WBC 6.91 (3.8-10.6) k/uL RBC 3.96 L (3.80-5.40) m/uL Hgb 11.9 L (11.4-16.0) gm/dL Hct 36.9 L (34.0-46.0) % MCV 93.2 (80.0-100.0) fL MCH 30.1 (25.0-35.0) pg MCHC 32.2 (31.0-37.0) g/dL RDW 13.4 (11.5-15.5) % Plt Count 206 (150-450) k/uL MPV 10.6 Immature Gran % (Auto) 0.30 % Absolute Nucleated RBC 0 % Neutrophils % 45.0 % Lymphocytes % 27.4 % Monocytes % 17.7 % Eosinophils % 9.0 % Basophils % 0.6 % Immature Gran # 0.02 X 10*3/uL Neutrophils # 3.12 (1.3-7.7) k/uL Lymphocytes # 1.89 (1.0-4.8) k/uL Monocytes # 1.22 H (0-1.0) k/uL Eosinophils # 0.62 H (0-0.7) k/uL Basophils # 0.04 (0-0.2) k/uL NRBC/100 WBC Diff 0 (0.00-0.01) X 10*3/uL PT (9.0-12.0) sec INR (<1.2) APTT (22.0-30.0) sec Sodium (137-145) mmol/L Potassium (3.5-5.1) mmol/L Chloride (98-107) mmol/L Carbon Dioxide (22-30) mmol/L Anion Gap mmol/L BUN (7-17) mg/dL Creatinine (0.52-1.04) mg/dL Est GFR (CKD-EPI) (>=60) Est GFR (CKD-EPI)AfAm (>60 ml/min/1.73 sqM) Est GFR (CKD-EPI)NonAf (>60 ml/min/1.73 sqM) BUN/Creatinine Ratio (12.00-20.00) Ratio Glucose (74-99) mg/dL POC Glucose (mg/dL) 93 115 H (70-110) mg/dL POC Glu Size Marker ID Margaret, Tram Mathiaskler, Tram Lactic Ac Sepsis Rflx Plasma Lactic Acid Florentin (0.7-2.0) mmol/L Calcium (8.4-10.2) mg/dL Phosphorus (2.5-4.5) mg/dL Magnesium (1.6-2.3) mg/dL Total Bilirubin (0.2-1.3) mg/dL AST (14-36) U/L ALT (4-34) U/L Alkaline Phosphatase (38-126) U/L Troponin I (0.000-0.034) ng/mL Total Protein (6.3-8.2) g/dL Albumin (3.5-5.0) g/dL Globulin g/dL Albumin/Globulin Ratio Amylase (30-110) U/L Lipase (23-300) U/L 02/11/23 02/11/23 02/11/23 Range/Units 06:32 12:06 17:09 WBC (3.8-10.6) k/uL RBC (3.80-5.40) m/uL Hgb (11.4-16.0) gm/dL Hct (34.0-46.0) % MCV (80.0-100.0) fL MCH (25.0-35.0) pg MCHC (31.0-37.0) g/dL RDW (11.5-15.5) % Plt Count (150-450) k/uL MPV Immature Gran % (Auto) % Absolute Nucleated RBC % Neutrophils % % Lymphocytes % % Monocytes % % Eosinophils % % Basophils % % Immature Gran # X 10*3/uL Neutrophils # (1.3-7.7) k/uL Lymphocytes # (1.0-4.8) k/uL Monocytes # (0-1.0) k/uL Eosinophils # (0-0.7) k/uL Basophils # (0-0.2) k/uL NRBC/100 WBC Diff (0.00-0.01) X 10*3/uL PT (9.0-12.0) sec INR (<1.2) APTT (22.0-30.0) sec Sodium 144 (137-145) mmol/L Potassium 3.8 (3.5-5.1) mmol/L Chloride 108 (98-107) mmol/L Carbon Dioxide 29.2 (22-30) mmol/L Anion Gap 6.80 mmol/L BUN <3.5 L (7-17) mg/dL Creatinine 0.6 (0.52-1.04) mg/dL Est GFR (CKD-EPI) 95 (>=60) Est GFR (CKD-EPI)AfAm (>60 ml/min/1.73 sqM) Est GFR (CKD-EPI)NonAf (>60 ml/min/1.73 sqM) BUN/Creatinine Ratio <5.83 L (12.00-20.00) Ratio Glucose 119 H (74-99) mg/dL POC Glucose (mg/dL) 235 H 87 (70-110) mg/dL POC Glu Size Marker ID Magno, Odalis Magno, Odalis Lactic Ac Sepsis Rflx Plasma Lactic Acid Florentin (0.7-2.0) mmol/L Calcium 8.4 L (8.4-10.2) mg/dL Phosphorus (2.5-4.5) mg/dL Magnesium (1.6-2.3) mg/dL Total Bilirubin 0.4 (0.2-1.3) mg/dL AST 24 (14-36) U/L ALT 22 (4-34) U/L Alkaline Phosphatase 51 (38-126) U/L Troponin I (0.000-0.034) ng/mL Total Protein 4.5 L (6.3-8.2) g/dL Albumin 2.8 L (3.5-5.0) g/dL Globulin 1.7 g/dL Albumin/Globulin Ratio 1.65 Amylase (30-110) U/L Lipase (23-300) U/L 02/11/23 02/12/23 02/12/23 Range/Units 19:53 02:20 05:54 WBC (3.8-10.6) k/uL RBC (3.80-5.40) m/uL Hgb (11.4-16.0) gm/dL Hct (34.0-46.0) % MCV (80.0-100.0) fL MCH (25.0-35.0) pg MCHC (31.0-37.0) g/dL RDW (11.5-15.5) % Plt Count (150-450) k/uL MPV Immature Gran % (Auto) % Absolute Nucleated RBC % Neutrophils % % Lymphocytes % % Monocytes % % Eosinophils % % Basophils % % Immature Gran # X 10*3/uL Neutrophils # (1.3-7.7) k/uL Lymphocytes # (1.0-4.8) k/uL Monocytes # (0-1.0) k/uL Eosinophils # (0-0.7) k/uL Basophils # (0-0.2) k/uL NRBC/100 WBC Diff (0.00-0.01) X 10*3/uL PT (9.0-12.0) sec INR (<1.2) APTT (22.0-30.0) sec Sodium (137-145) mmol/L Potassium (3.5-5.1) mmol/L Chloride (98-107) mmol/L Carbon Dioxide (22-30) mmol/L Anion Gap mmol/L BUN (7-17) mg/dL Creatinine (0.52-1.04) mg/dL Est GFR (CKD-EPI) (>=60) Est GFR (CKD-EPI)AfAm (>60 ml/min/1.73 sqM) Est GFR (CKD-EPI)NonAf (>60 ml/min/1.73 sqM) BUN/Creatinine Ratio (12.00-20.00) Ratio Glucose (74-99) mg/dL POC Glucose (mg/dL) 148 H 154 H 80 (70-110) mg/dL POC Glu Size Marker MILO Laura, Anushka Kosek, Anushka Kosek, Anushka Lactic Ac Sepsis Rflx Plasma Lactic Acid Florentin (0.7-2.0) mmol/L Calcium (8.4-10.2) mg/dL Phosphorus (2.5-4.5) mg/dL Magnesium (1.6-2.3) mg/dL Total Bilirubin (0.2-1.3) mg/dL AST (14-36) U/L ALT (4-34) U/L Alkaline Phosphatase (38-126) U/L Troponin I (0.000-0.034) ng/mL Total Protein (6.3-8.2) g/dL Albumin (3.5-5.0) g/dL Globulin g/dL Albumin/Globulin Ratio Amylase (30-110) U/L Lipase (23-300) U/L 02/12/23 02/12/23 02/12/23 Range/Units 07:16 07:16 08:21 WBC 5.48 (3.8-10.6) k/uL RBC 4.09 L (3.80-5.40) m/uL Hgb 12.3 (11.4-16.0) gm/dL Hct 37.9 (34.0-46.0) % MCV 92.7 (80.0-100.0) fL MCH 30.1 (25.0-35.0) pg MCHC 32.5 (31.0-37.0) g/dL RDW 13.4 (11.5-15.5) % Plt Count 226 (150-450) k/uL MPV 10.5 Immature Gran % (Auto) 0.20 % Absolute Nucleated RBC 0 % Neutrophils % 39.9 % Lymphocytes % 30.7 % Monocytes % 18.6 % Eosinophils % 9.9 % Basophils % 0.7 % Immature Gran # 0.01 X 10*3/uL Neutrophils # 2.19 (1.3-7.7) k/uL Lymphocytes # 1.68 (1.0-4.8) k/uL Monocytes # 1.02 H (0-1.0) k/uL Eosinophils # 0.54 H (0-0.7) k/uL Basophils # 0.04 (0-0.2) k/uL NRBC/100 WBC Diff 0 (0.00-0.01) X 10*3/uL PT (9.0-12.0) sec INR (<1.2) APTT (22.0-30.0) sec Sodium 145 (137-145) mmol/L Potassium 3.6 (3.5-5.1) mmol/L Chloride 109 (98-107) mmol/L Carbon Dioxide 29.5 (22-30) mmol/L Anion Gap 6.50 mmol/L BUN <3.5 L (7-17) mg/dL Creatinine 0.7 (0.52-1.04) mg/dL Est GFR (CKD-EPI) 92 (>=60) Est GFR (CKD-EPI)AfAm (>60 ml/min/1.73 sqM) Est GFR (CKD-EPI)NonAf (>60 ml/min/1.73 sqM) BUN/Creatinine Ratio <5.00 L (12.00-20.00) Ratio Glucose 103 (74-99) mg/dL POC Glucose (mg/dL) 87 (70-110) mg/dL POC Glu Size Marker ID Tuan, Trang Lactic Ac Sepsis Rflx Plasma Lactic Acid Florentin (0.7-2.0) mmol/L Calcium 8.9 (8.4-10.2) mg/dL Phosphorus (2.5-4.5) mg/dL Magnesium 1.7 (1.6-2.3) mg/dL Total Bilirubin (0.2-1.3) mg/dL AST (14-36) U/L ALT (4-34) U/L Alkaline Phosphatase (38-126) U/L Troponin I (0.000-0.034) ng/mL Total Protein (6.3-8.2) g/dL Albumin (3.5-5.0) g/dL Globulin g/dL Albumin/Globulin Ratio Amylase (30-110) U/L Lipase (23-300) U/L 02/12/23 02/12/23 02/12/23 Range/Units 11:32 17:34 19:58 WBC (3.8-10.6) k/uL RBC (3.80-5.40) m/uL Hgb (11.4-16.0) gm/dL Hct (34.0-46.0) % MCV (80.0-100.0) fL MCH (25.0-35.0) pg MCHC (31.0-37.0) g/dL RDW (11.5-15.5) % Plt Count (150-450) k/uL MPV Immature Gran % (Auto) % Absolute Nucleated RBC % Neutrophils % % Lymphocytes % % Monocytes % % Eosinophils % % Basophils % % Immature Gran # X 10*3/uL Neutrophils # (1.3-7.7) k/uL Lymphocytes # (1.0-4.8) k/uL Monocytes # (0-1.0) k/uL Eosinophils # (0-0.7) k/uL Basophils # (0-0.2) k/uL NRBC/100 WBC Diff (0.00-0.01) X 10*3/uL PT (9.0-12.0) sec INR (<1.2) APTT (22.0-30.0) sec Sodium (137-145) mmol/L Potassium (3.5-5.1) mmol/L Chloride (98-107) mmol/L Carbon Dioxide (22-30) mmol/L Anion Gap mmol/L BUN (7-17) mg/dL Creatinine (0.52-1.04) mg/dL Est GFR (CKD-EPI) (>=60) Est GFR (CKD-EPI)AfAm (>60 ml/min/1.73 sqM) Est GFR (CKD-EPI)NonAf (>60 ml/min/1.73 sqM) BUN/Creatinine Ratio (12.00-20.00) Ratio Glucose (74-99) mg/dL POC Glucose (mg/dL) 125 H 154 H 240 H (70-110) mg/dL POC Glu Size Marker MILO Dickerson, Trang Dickerson, Trang SanchezAnushka Lactic Ac Sepsis Rflx Plasma Lactic Acid Florentin (0.7-2.0) mmol/L Calcium (8.4-10.2) mg/dL Phosphorus (2.5-4.5) mg/dL Magnesium (1.6-2.3) mg/dL Total Bilirubin (0.2-1.3) mg/dL AST (14-36) U/L ALT (4-34) U/L Alkaline Phosphatase (38-126) U/L Troponin I (0.000-0.034) ng/mL Total Protein (6.3-8.2) g/dL Albumin (3.5-5.0) g/dL Globulin g/dL Albumin/Globulin Ratio Amylase (30-110) U/L Lipase (23-300) U/L 02/13/23 02/13/23 02/13/23 Range/Units 03:14 06:17 06:18 WBC 6.26 (3.8-10.6) k/uL RBC 4.14 (3.80-5.40) m/uL Hgb 12.6 (11.4-16.0) gm/dL Hct 38.3 (34.0-46.0) % MCV 92.5 (80.0-100.0) fL MCH 30.4 (25.0-35.0) pg MCHC 32.9 (31.0-37.0) g/dL RDW 13.5 (11.5-15.5) % Plt Count 224 (150-450) k/uL MPV 10.1 Immature Gran % (Auto) 0.20 % Absolute Nucleated RBC 0 % Neutrophils % 46.4 % Lymphocytes % 26.4 % Monocytes % 18.1 % Eosinophils % 8.1 % Basophils % 0.8 % Immature Gran # 0.01 X 10*3/uL Neutrophils # 2.91 (1.3-7.7) k/uL Lymphocytes # 1.65 (1.0-4.8) k/uL Monocytes # 1.13 H (0-1.0) k/uL Eosinophils # 0.51 H (0-0.7) k/uL Basophils # 0.05 (0-0.2) k/uL NRBC/100 WBC Diff 0 (0.00-0.01) X 10*3/uL PT (9.0-12.0) sec INR (<1.2) APTT (22.0-30.0) sec Sodium (137-145) mmol/L Potassium (3.5-5.1) mmol/L Chloride (98-107) mmol/L Carbon Dioxide (22-30) mmol/L Anion Gap mmol/L BUN (7-17) mg/dL Creatinine (0.52-1.04) mg/dL Est GFR (CKD-EPI) (>=60) Est GFR (CKD-EPI)AfAm (>60 ml/min/1.73 sqM) Est GFR (CKD-EPI)NonAf (>60 ml/min/1.73 sqM) BUN/Creatinine Ratio (12.00-20.00) Ratio Glucose (74-99) mg/dL POC Glucose (mg/dL) 79 93 (70-110) mg/dL POC Glu Size Marker MILO Kosek, Anushka Kosek, Anushka Lactic Ac Sepsis Rflx Plasma Lactic Acid Florentin (0.7-2.0) mmol/L Calcium (8.4-10.2) mg/dL Phosphorus (2.5-4.5) mg/dL Magnesium (1.6-2.3) mg/dL Total Bilirubin (0.2-1.3) mg/dL AST (14-36) U/L ALT (4-34) U/L Alkaline Phosphatase (38-126) U/L Troponin I (0.000-0.034) ng/mL Total Protein (6.3-8.2) g/dL Albumin (3.5-5.0) g/dL Globulin g/dL Albumin/Globulin Ratio Amylase (30-110) U/L Lipase (23-300) U/L 02/13/23 Range/Units 06:18 WBC (3.8-10.6) k/uL RBC (3.80-5.40) m/uL Hgb (11.4-16.0) gm/dL Hct (34.0-46.0) % MCV (80.0-100.0) fL MCH (25.0-35.0) pg MCHC (31.0-37.0) g/dL RDW (11.5-15.5) % Plt Count (150-450) k/uL MPV Immature Gran % (Auto) % Absolute Nucleated RBC % Neutrophils % % Lymphocytes % % Monocytes % % Eosinophils % % Basophils % % Immature Gran # X 10*3/uL Neutrophils # (1.3-7.7) k/uL Lymphocytes # (1.0-4.8) k/uL Monocytes # (0-1.0) k/uL Eosinophils # (0-0.7) k/uL Basophils # (0-0.2) k/uL NRBC/100 WBC Diff (0.00-0.01) X 10*3/uL PT (9.0-12.0) sec INR (<1.2) APTT (22.0-30.0) sec Sodium 144 (137-145) mmol/L Potassium 3.8 (3.5-5.1) mmol/L Chloride 108 (98-107) mmol/L Carbon Dioxide 27.7 (22-30) mmol/L Anion Gap 8.30 mmol/L BUN <3.5 L (7-17) mg/dL Creatinine 0.7 (0.52-1.04) mg/dL Est GFR (CKD-EPI) 92 (>=60) Est GFR (CKD-EPI)AfAm (>60 ml/min/1.73 sqM) Est GFR (CKD-EPI)NonAf (>60 ml/min/1.73 sqM) BUN/Creatinine Ratio <5.00 L (12.00-20.00) Ratio Glucose 97 (74-99) mg/dL POC Glucose (mg/dL) (70-110) mg/dL POC Glu Size Marker ID Lactic Ac Sepsis Rflx Plasma Lactic Acid Florentin (0.7-2.0) mmol/L Calcium 8.8 (8.4-10.2) mg/dL Phosphorus (2.5-4.5) mg/dL Magnesium 1.9 (1.6-2.3) mg/dL Total Bilirubin (0.2-1.3) mg/dL AST (14-36) U/L ALT (4-34) U/L Alkaline Phosphatase (38-126) U/L Troponin I (0.000-0.034) ng/mL Total Protein (6.3-8.2) g/dL Albumin (3.5-5.0) g/dL Globulin g/dL Albumin/Globulin Ratio Amylase (30-110) U/L Lipase (23-300) U/L Disposition <Herminio Marques - Last Filed: 02/08/23 07:01> Is patient prescribed a controlled substance at d/c from ED?: No <Sunil Queen - Last Filed: 02/15/23 04:56> Clinical Impression: Abdominal pain, Enteritis Disposition: ADMITTED IP TO THIS HOSP Condition: Good
[2023-02-05 23:18] LABS: Basophils % (A) 0 %; Eosinophils # (A) 0.3 k/uL (0-0.7); Eosinophils % (A) 4 %; HCT 38.7 % (34.0-46.0); HGB 12.8 gm/dL (11.4-16.0); Lymphocytes # (A) 1.7 k/uL (1.0-4.8); Lymphocytes % (A) 21 %; MCH 30.2 pg (25.0-35.0); MCV 91.5 fL (80.0-100.0); Monocytes # (A) 0.5 k/uL (0-1.0); Monocytes % (A) 6 %; Neutrophils # (A) 5.5 k/uL (1.3-7.7); Neutrophils % (A) 68 %; Platelet Count 228 k/uL (150-450); RBC 4.23 m/uL (3.80-5.40); RDW 13.4 % (11.5-15.5); WBC 8.2 k/uL (3.8-10.6)
[2023-02-05 23:23] LABS: Prothrombin Time 10.4 sec (9.0-12.0)
[2023-02-05 23:29] LABS: ALT 24 U/L (4-34); AST 32 U/L (14-36); African American GFR (CKD) >90 (>60 ml/min/1.73 sqM); Albumin 3.1 g/dL (3.5-5.0); Alkaline Phosphatase 87 U/L (38-126); Amylase 85 U/L (30-110); Anion Gap 9 mmol/L; Blood Urea Nitrogen 17 mg/dL (7-17); Calcium 9.3 mg/dL (8.4-10.2); Carbon Dioxide 22 mmol/L (22-30); Chloride 101 mmol/L (98-107); Glucose 283 mg/dL (74-99); Lipase 223 U/L (23-300); Non-African American GFR(CKD) >90 (>60 ml/min/1.73 sqM); Potassium 4.2 mmol/L (3.5-5.1); Sodium 132 mmol/L (137-145); Total Bilirubin 0.6 mg/dL (0.2-1.3); Total Protein 5.7 g/dL (6.3-8.2)
[2023-02-06] MEDS ORDERED: SODIUM CHLORIDE 0.9% 500 ML 500 ML IV ONE (00:02)
[2023-02-06] MEDS ORDERED: MORPHINE SULFATE 4 MG/ML SYRINGE IV STA (01:20)
--- NOTE | 2023-02-06 02:11 | CT ---
EXAM: CT Abdomen and Pelvis With Intravenous Contrast CLINICAL HISTORY: ITS.REASON CT Reason: abdominal pain TECHNIQUE: Axial computed tomography images of the abdomen and pelvis with intravenous contrast. CTDI is 20.6 mGy and DLP is 891.8 mGy-cm. This CT exam was performed using one or more of the following dose reduction techniques: automated exposure control, adjustment of the mA and/or kV according to patient size, and/or use of iterative reconstruction technique. COMPARISON: No relevant prior studies available. FINDINGS: Lung bases: Unremarkable. No mass. No consolidation. ABDOMEN: Liver: Unremarkable. No mass. Gallbladder and bile ducts: Cholecystectomy. No intrahepatic biliary ductal dilation. Pancreas: Unremarkable. No mass. No ductal dilation. Spleen: Unremarkable. No splenomegaly. Adrenals: Unremarkable. No mass. Kidneys and ureters: Unremarkable. No hydronephrosis or delayed nephrogram. Stomach and bowel: Gastric bypass. Anastomosis of small bowel with the stomach. This small bowel limb is dilated measuring up to 6.2 cm and demonstrate wall thickening, concerning for enteritis. Correlate with surgical history. Mild fecal retention, correlate for constipation. No small bowel obstruction. No free intraperitoneal air. PELVIS: Appendix: No secondary signs of appendicitis. Bladder: Unremarkable. No mass. Reproductive: Unremarkable as visualized. ABDOMEN and PELVIS: Intraperitoneal space: Unremarkable. No free air. No significant fluid collection. Bones/joints: Degenerative changes of the spine. Fusion L5-S1. L5 laminectomy. No acute fracture. No dislocation. Soft tissues: Unremarkable. Vasculature: Atherosclerotic changes of the aorta. No abdominal aortic aneurysm. Lymph nodes: Unremarkable. No enlarged lymph nodes. IMPRESSION: 1. Status-post gastric bypass. Anastomosis of small bowel with the stomach. This small bowel limb is dilated measuring up to 6.2 cm and demonstrate wall thickening, concerning for enteritis. Correlate with surgical history. 2. Cholecystectomy. No intrahepatic biliary ductal dilation. 3. Mild fecal retention, correlate for constipation. No small bowel obstruction. No free intraperitoneal air.
[2023-02-06] MEDS ORDERED: NALOXONE 0.4 MG/ML 1 ML VIAL IV PRN (03:37)
[2023-02-06] MEDS: MORPHINE SULFATE 4 MG/ML SYRINGE IV PRN (04:42)
[2023-02-06] MEDS: SODIUM CHLORIDE 0.9% 1,000 ML IV SCH ×2 (04:42→13:01)
[2023-02-06] MEDS: ONDANSETRON 4 MG/2 ML VIAL IVP PRN ×3 (04:43→21:14)
[2023-02-06 04:56] LABS: Glucose,Whole Blood 109 mg/dL (70-110)
[2023-02-06] MEDS ORDERED: NON FORMULARY DRUG (Omeprazole [Omeprazole] 40 MG Capsule.Dr) PO SCH (10:15)
[2023-02-06] MEDS: metroNIDAZOLE-NS PMX 500 MG in SALINE 1 100ML.BAG IVPB SCH ×3 (11:11→23:43)
[2023-02-06] MEDS: PANTOPRAZOLE 40 MG/10 ML VIAL IVP SCH ×2 (11:12→21:14)
[2023-02-06] MEDS: METOPROLOL SUCCINATE (ER) 50 MG TAB.ER.24H PO SCH (11:12)
[2023-02-06] MEDS: amLODIPine 5 MG TAB PO SCH (11:12)
[2023-02-06] MEDS: ISOSORBIDE MONONITRATE ER 60 MG TAB.ER.24H PO SCH (11:21)
[2023-02-06] MEDS: HEPARIN SODIUM,PORCINE/PF 5,000 UNIT/0.5 ML SYRINGE SQ SCH ×2 (11:21→21:14)
[2023-02-06] MEDS: ARIPiprazole 15 MG TAB PO SCH (11:21)
[2023-02-06] MEDS: buPROPion XL 300 MG TAB.ER.24H PO SCH (11:21)
[2023-02-06] MEDS: ESCITALOPRAM 20 MG TAB PO SCH (11:21)
[2023-02-06 12:53] LABS: ALT 21 U/L (4-34); AST 26 U/L (14-36); African American GFR (CKD) >90 (>60 ml/min/1.73 sqM); Albumin 2.9 g/dL (3.5-5.0); Albumin/Globulin Ratio 1.3; Alkaline Phosphatase 71 U/L (38-126); Anion Gap 5 mmol/L; Blood Urea Nitrogen 9 mg/dL (7-17); Calcium 8.6 mg/dL (8.4-10.2); Carbon Dioxide 25 mmol/L (22-30); Chloride 107 mmol/L (98-107); Globulin 2.3 g/dL; Glucose 162 mg/dL (74-99); HCT 38.6 % (34.0-46.0); HGB 13.2 gm/dL (11.4-16.0); MCHC 34.2 g/dL (31.0-37.0); MCV 90.8 fL (80.0-100.0); Magnesium 1.2 mg/dL (1.6-2.3); Non-African American GFR(CKD) >90 (>60 ml/min/1.73 sqM); Phosphorus 2.8 mg/dL (2.5-4.5); Platelet Count 203 k/uL (150-450); RBC 4.26 m/uL (3.80-5.40); RDW 13.5 % (11.5-15.5); Sodium 137 mmol/L (137-145); Total Bilirubin 0.7 mg/dL (0.2-1.3); Total Protein 5.2 g/dL (6.3-8.2); WBC 6.3 k/uL (3.8-10.6)
[2023-02-06] MEDS: PIPERACILLIN-TAZOBACTAM 3.375 GM in SODIUM CHLORIDE 0.9% 100 ML IVPB SCH ×3 (12:56→23:43)
[2023-02-06] MEDS: INSULIN ASPART (NovoLOG) 100 UNIT/ML VIAL SQ SCH ×2 (12:59→17:56)
--- NOTE | 2023-02-06 13:38 | HP ---
HISTORY AND PHYSICAL CHIEF COMPLAINT: Abdominal pain and vomiting. HISTORY OF PRESENT ILLNESS: This is a 72-year-old woman with a past medical history of diabetes mellitus, hypertension, and history of bariatric surgery, being followed by Dr. Gottlieb in the outpatient, who was admitted with complaints of having diffuse abdominal pain and some vomiting, no diarrhea. CT scan showed possible enteritis. The patient was started on empiric antibiotics. Surgery consultation has been sought. There is no history of any fever, rigors, or chills. PAST MEDICAL HISTORY: Reviewed includes diabetes mellitus. Rest of the history and rest of the chart are also reviewed. HOME MEDICATIONS: Reviewed include Imdur. Doses are reviewed. The medications are noted. ALLERGIES: Fentanyl. FAMILY HISTORY: No history of heart disease or strokes in the family. SOCIAL HISTORY: No history of smoking or alcohol intake. REVIEW OF SYSTEMS: Fourteen-point review is negative except as mentioned earlier. PHYSICAL EXAMINATION: VITAL SIGNS: Pulse is 67, blood pressure 164/79, respirations 18. HEENT: Conjunctivae are normal. NECK: No jugular venous distention. CARDIOVASCULAR: S1 and S2 muffled. RESPIRATORY: Breath sounds diminished at the bases. ABDOMEN: Soft. Mild diffuse discomfort. No guarding. No rigidity. No masses palpable. Bowel sounds diminished. LEGS: No edema. NERVOUS SYSTEM: No focal deficits. SKIN: nad JOINTS: No active deforming arthropathy. LABORATORY DATA: Reviewed. Lactic acid is ntd. ASSESSMENT: 1. Abdominal pain and vomiting, possibly acute enteritis. 2. Elevated lactic acid, rule out sepsis. 3. Diabetes mellitus, type 2. 4. Hypertension. 5. Multiple medical issues. RECOMMENDATIONS AND DISCUSSION: In this 72-year-old woman presented with multiple complex medical issues, initiate broad-spectrum IV antibiotics, Infectious Disease evaluation, and Surgical evaluation. Symptomatic treatment. Resume the home medications once they are confirmed. DVT prophylaxis. Prognosis is guarded because of multiple complex medical issues. Further recommendations to follow. See orders for details. MMODL / IJN: [id number] / MTDD
--- NOTE | 2023-02-06 15:36 | P.GSCN ---
History of Present Illness Consult date: 02/06/23 (late charting) Reason for Consult: enteritis, history of gastric bypass History of present illness: 72F presented to ER with worsening abdominal pain. States her abdominal pain has been present for the past 2 months. Hasn't really had an appetite or been able to eat for the last two months. Symptoms worsened over the last few days, which prompted her ER visit. Endorses history of gastric bypass years ago & is unable to recall who her surgeon was or where her surgery was done. Doesn't feel any better today than she was yesterday. Review of Systems - Constitutional Reports as per HPI - Cardiovascular Reports as per HPI - Respiratory Reports as per HPI - Gastrointestinal Reports as per HPI - Genitourinary Genitourinary: Reports as per HPI - Musculoskeletal Reports as per HPI - Integumentary Reports as per HPI - Neurological Reports as per HPI - Psychiatric Reports as per HPI - Endocrine Reports as per HPI - Hematologic/Lymphatic Reports as per HPI - Allergic/Immunologic Reports as per HPI Past Medical History Past Medical History: Diabetes Mellitus, Hypertension Additional Past Medical History / Comment(s): early stage dementia History of Any Multi-Drug Resistant Organisms: None Reported Past Surgical History: Bariatric Surgery (RNY gastric bypass), Cholecystectomy Past Psychological History: Depression, Schizophrenia Smoking Status: Never smoker Past Alcohol Use History: None Reported Past Drug Use History: None Reported Medications and Allergies Home Medications Medication Instructions Recorded Confirmed Type ARIPiprazole [Abilify] 15 mg PO DAILY 02/06/23 02/06/23 History Alendronate Sodium [Fosamax] 70 mg PO Q7D 02/06/23 02/06/23 History Atorvastatin [Lipitor] 40 mg PO HS 02/06/23 02/06/23 History Escitalopram [Lexapro] 20 mg PO DAILY 02/06/23 02/06/23 History Gabapentin 600 mg PO BID 02/06/23 02/06/23 History Insulin Lispro [humaLOG Kwikpen] 6 unit SQ AC-TID 02/06/23 02/06/23 History Isosorbide Mononitrate ER [Imdur] 60 mg PO DAILY 02/06/23 02/06/23 History Losartan [Cozaar] 50 mg PO DAILY 02/06/23 02/06/23 History Metoprolol Succinate (ER) [Toprol 50 mg PO DAILY 02/06/23 02/06/23 History XL] Omeprazole 40 mg PO AC-BRKFST 02/06/23 02/06/23 History amLODIPine [Norvasc] 5 mg PO DAILY 02/06/23 02/06/23 History buPROPion XL [Wellbutrin XL] 300 mg PO DAILY 02/06/23 02/06/23 History haloperidoL [Haldol] 1 mg PO HS 02/06/23 02/06/23 History Allergies Allergy/AdvReac Type Severity Reaction Status Date / Time fentanyl Allergy Rash/Hives Verified 02/06/23 08:36 Surgical - Exam Vital Signs Temp Pulse Resp BP Pulse Ox 97.8 F 85 18 125/65 95 02/05/23 22:41 02/05/23 22:41 02/05/23 22:41 02/05/23 22:41 02/05/23 22:41 - General well developed, well nourished, no distress - Eyes no icteric - ENT dry mucosa no hearing loss - Neck supple - Respiratory normal expansion, normal respiratory effort - Cardiovascular Rhythm: regular - Abdomen Abdomen: soft, tender (mild epigastric pain), surgical scars, no guarding, no rigid, no rebound, no distended - Integumentary warm & dry, no diaphoresis - Neurologic no gross deficits - Musculoskeletal no LE edema - Psychiatric cooperative, normal affect Results - Labs 02/07/23 13:03 02/06/23 12:16 Abnormal Lab Results - Last 24 Hours (Table) 02/05/23 02/05/23 02/05/23 Range/Units 22:58 23:02 23:02 Sodium 132 L (137-145) mmol/L Creatinine (0.52-1.04) mg/dL Glucose 283 H (74-99) mg/dL POC Glucose (mg/dL) 280 H (70-110) mg/dL Plasma Lactic Acid Florentin 4.0 H* (0.7-2.0) mmol/L Magnesium (1.6-2.3) mg/dL Total Protein 5.7 L (6.3-8.2) g/dL Albumin 3.1 L (3.5-5.0) g/dL 02/06/23 02/06/23 02/06/23 Range/Units 02:24 06:20 09:15 Sodium (137-145) mmol/L Creatinine (0.52-1.04) mg/dL Glucose (74-99) mg/dL POC Glucose (mg/dL) (70-110) mg/dL Plasma Lactic Acid Florentin 3.3 H* 2.7 H* 3.2 H* (0.7-2.0) mmol/L Magnesium (1.6-2.3) mg/dL Total Protein (6.3-8.2) g/dL Albumin (3.5-5.0) g/dL 02/06/23 02/06/23 Range/Units 12:16 12:16 Sodium (137-145) mmol/L Creatinine 0.40 L (0.52-1.04) mg/dL Glucose 162 H (74-99) mg/dL POC Glucose (mg/dL) (70-110) mg/dL Plasma Lactic Acid Florentin 2.7 H* (0.7-2.0) mmol/L Magnesium 1.2 L (1.6-2.3) mg/dL Total Protein 5.2 L (6.3-8.2) g/dL Albumin 2.9 L (3.5-5.0) g/dL Diabetes panel 02/05/23 02/06/23 Range/Units 23:02 12:16 Sodium 132 L 137 (137-145) mmol/L Potassium 4.2 4.0 (3.5-5.1) mmol/L Chloride 101 107 (98-107) mmol/L Carbon Dioxide 22 25 (22-30) mmol/L BUN 17 9 (7-17) mg/dL Creatinine 0.52 0.40 L (0.52-1.04) mg/dL Glucose 283 H 162 H (74-99) mg/dL Calcium 9.3 8.6 (8.4-10.2) mg/dL AST 32 26 (14-36) U/L ALT 24 21 (4-34) U/L Alkaline Phosphatase 87 71 (38-126) U/L Total Protein 5.7 L 5.2 L (6.3-8.2) g/dL Albumin 3.1 L 2.9 L (3.5-5.0) g/dL Calcium panel 02/05/23 02/06/23 Range/Units 23:02 12:16 Calcium 9.3 8.6 (8.4-10.2) mg/dL Phosphorus 2.8 (2.5-4.5) mg/dL Albumin 3.1 L 2.9 L (3.5-5.0) g/dL Pituitary panel 02/05/23 02/06/23 Range/Units 23:02 12:16 Sodium 132 L 137 (137-145) mmol/L Potassium 4.2 4.0 (3.5-5.1) mmol/L Chloride 101 107 (98-107) mmol/L Carbon Dioxide 22 25 (22-30) mmol/L BUN 17 9 (7-17) mg/dL Creatinine 0.52 0.40 L (0.52-1.04) mg/dL Glucose 283 H 162 H (74-99) mg/dL Calcium 9.3 8.6 (8.4-10.2) mg/dL Adrenal panel 02/05/23 02/06/23 Range/Units 23: 12:16 Sodium 132 L 137 (137-145) mmol/L Potassium 4.2 4.0 (3.5-5.1) mmol/L Chloride 101 107 (98-107) mmol/L Carbon Dioxide 22 25 (22-30) mmol/L BUN 17 9 (7-17) mg/dL Creatinine 0.52 0.40 L (0.52-1.04) mg/dL Glucose 283 H 162 H (74-99) mg/dL Calcium 9.3 8.6 (8.4-10.2) mg/dL Total Bilirubin 0.6 0.7 (0.2-1.3) mg/dL AST 32 26 (14-36) U/L ALT 24 21 (4-34) U/L Alkaline Phosphatase 87 71 (38-126) U/L Total Protein 5.7 L 5.2 L (6.3-8.2) g/dL Albumin 3.1 L 2.9 L (3.5-5.0) g/dL Assessment and Plan Assessment: enteritis with concern involving bypass limbs remote history of RNY anorexia impending malnutrition Plan: Continue IVF, abx Will re-assess tomorrow If needs surgical intervention, [facility] I do not have bariatric privileges, including revision of gastric bypass. Plan of care discussed with patient's son, Jean via phone call. Would like her to remain in the [facility] system if possible. There is bariatric surgery specialists at [facility], which Jean is OK with.
[2023-02-06 16:59] LABS: Glucose,Whole Blood 96 mg/dL (70-110)
[2023-02-06 20:09] LABS: Glucose,Whole Blood 96 mg/dL (70-110)
[2023-02-06] MEDS: GABAPENTIN 300 MG CAP PO SCH (21:14)
[2023-02-06] MEDS: haloperidoL 1 MG TAB PO SCH (21:14)
[2023-02-06] MEDS: ATORVASTATIN 40 MG TAB PO SCH (21:14)
--- NOTE | 2023-02-06 22:31 | P.CONS ---
History of Present Illness - Reason for Consult Consult date: 02/06/23 - History of Present Illness Patient is a 72-year-old female with a past medical history significant for diabetes mellitus and hypertension history of depression she has not for any patient presenting to the [facility] ER last night for evaluation of epigastric abdominal pain that has been getting worse for the last 2 months however has been worsening for 2 days with associated vomiting patient describes the pain to be more of a sharp in nature almost tender to any severity by the time she was in the hospital with associated vomiting but no diarrhea or constipation patient denies high-grade fever may be some chills no chest pain shortness of breath or coughing or urinary symptoms on presentation to the hospital the patient was afebrile and no fever has been recorded subsequently patient did have normal white count kidney function was normal lactic acid was elevated 2.7 enzymes are normal patient did have a CT of abdominal pelvis did show status post gastric bypass anastomosis of small bowel with the stomach small bowel limb is dilated measuring up to 6.2 cm with wall thickening and concerning for enteritis mild fecal retention correlate for constipation patient was started on Zosyn infectious he was consulted for further management of antibiotic therapy Past Medical History Past Medical History: Diabetes Mellitus, Hypertension Additional Past Medical History / Comment(s): early stage dementia History of Any Multi-Drug Resistant Organisms: None Reported Past Surgical History: Bariatric Surgery, Cholecystectomy Past Psychological History: Depression, Schizophrenia Smoking Status: Never smoker Past Alcohol Use History: None Reported Past Drug Use History: None Reported Medications and Allergies Home Medications Medication Instructions Recorded Confirmed Type ARIPiprazole [Abilify] 15 mg PO DAILY 02/06/23 02/06/23 History Alendronate Sodium [Fosamax] 70 mg PO Q7D 02/06/23 02/06/23 History Atorvastatin [Lipitor] 40 mg PO HS 02/06/23 02/06/23 History Escitalopram [Lexapro] 20 mg PO DAILY 02/06/23 02/06/23 History Gabapentin 600 mg PO BID 02/06/23 02/06/23 History Insulin Lispro [humaLOG Kwikpen] 6 unit SQ AC-TID 02/06/23 02/06/23 History Isosorbide Mononitrate ER [Imdur] 60 mg PO DAILY 02/06/23 02/06/23 History Losartan [Cozaar] 50 mg PO DAILY 02/06/23 02/06/23 History Metoprolol Succinate (ER) [Toprol 50 mg PO DAILY 02/06/23 02/06/23 History XL] Omeprazole 40 mg PO AC-BRKFST 02/06/23 02/06/23 History amLODIPine [Norvasc] 5 mg PO DAILY 02/06/23 02/06/23 History buPROPion XL [Wellbutrin XL] 300 mg PO DAILY 02/06/23 02/06/23 History haloperidoL [Haldol] 1 mg PO HS 02/06/23 02/06/23 History Allergies Allergy/AdvReac Type Severity Reaction Status Date / Time fentanyl Allergy Rash/Hives Verified 02/06/23 08:36 Physical Exam Vitals: Vital Signs Temp Pulse Pulse Resp BP BP Pulse Ox 02/06/23 07:00 98.0 F 75 67 16 164/79 144/79 95 02/06/23 04:48 98 F 67 18 164/79 95 02/06/23 01:43 64 18 140/66 97 02/05/23 23:38 96 02/05/23 23:36 71 18 120/64 02/05/23 22:41 97.8 F 85 18 125/65 95 Intake and Output 02/05/23 02/06/23 02/06/23 22:59 06:59 14:59 Other: Weight 68.039 kg 68.039 kg Results CBC & Chem 7: 02/07/23 13:03 02/07/23 13:03 Labs: Abnormal Lab Results - Last 24 Hours (Table) 02/05/23 02/05/23 02/05/23 Range/Units 22:58 23:02 23:02 Sodium 132 L (137-145) mmol/L Glucose 283 H (74-99) mg/dL POC Glucose (mg/dL) 280 H (70-110) mg/dL Plasma Lactic Acid Florentin 4.0 H* (0.7-2.0) mmol/L Total Protein 5.7 L (6.3-8.2) g/dL Albumin 3.1 L (3.5-5.0) g/dL 02/06/23 02/06/23 02/06/23 Range/Units 02:24 06:20 09:15 Sodium (137-145) mmol/L Glucose (74-99) mg/dL POC Glucose (mg/dL) (70-110) mg/dL Plasma Lactic Acid Florentin 3.3 H* 2.7 H* 3.2 H* (0.7-2.0) mmol/L Total Protein (6.3-8.2) g/dL Albumin (3.5-5.0) g/dL Assessment and Plan Plan: 1patient to the hospital abdominal pain and vomiting in this patient who did have a history of gastric bypass abnormality was seen on the CT with dilatation of the portion of the small bowel questionably related to obstruction and there is concern for possible enteritis possible infectious versus ischemia need to be rule out, we will need to cover for the enteric gram-negative to be the likely pathogen 2-check inflammatory markers 3-continue with the Zosyn 4-stool culture if the patient has any loose stools We will follow on clinical condition and cultures to further adjust medication if needed Thank you for this consultation we will follow the patient along with you Time with Patient: Greater than 30
[2023-02-07] MEDS: MORPHINE SULFATE 4 MG/ML SYRINGE IV PRN (01:08)
[2023-02-07 02:14] LABS: Glucose,Whole Blood 102 mg/dL (70-110)
[2023-02-07] MEDS: SODIUM CHLORIDE 0.9% 1,000 ML IV SCH ×3 (03:00→22:07)
[2023-02-07 06:16] LABS: Glucose,Whole Blood 95 mg/dL (70-110)
[2023-02-07] MEDS: INSULIN ASPART (NovoLOG) 100 UNIT/ML VIAL SQ SCH ×3 (06:17→18:00)
[2023-02-07] MEDS: metroNIDAZOLE-NS PMX 500 MG in SALINE 1 100ML.BAG IVPB SCH ×3 (08:42→23:10)
[2023-02-07] MEDS: PIPERACILLIN-TAZOBACTAM 3.375 GM in SODIUM CHLORIDE 0.9% 100 ML IVPB SCH ×2 (10:01→17:27)
[2023-02-07] MEDS: PANTOPRAZOLE 40 MG/10 ML VIAL IVP SCH ×2 (10:01→19:52)
[2023-02-07] MEDS: LOSARTAN 50 MG TAB PO SCH (10:01)
[2023-02-07] MEDS: GABAPENTIN 300 MG CAP PO SCH ×2 (10:01→19:52)
[2023-02-07] MEDS: HEPARIN SODIUM,PORCINE/PF 5,000 UNIT/0.5 ML SYRINGE SQ SCH ×2 (10:01→19:52)
[2023-02-07] MEDS: amLODIPine 5 MG TAB PO SCH (10:01)
[2023-02-07] MEDS: METOPROLOL SUCCINATE (ER) 50 MG TAB.ER.24H PO SCH (10:01)
[2023-02-07] MEDS: ARIPiprazole 15 MG TAB PO SCH (10:02)
[2023-02-07] MEDS: buPROPion XL 300 MG TAB.ER.24H PO SCH (10:02)
[2023-02-07] MEDS: ISOSORBIDE MONONITRATE ER 60 MG TAB.ER.24H PO SCH (10:02)
[2023-02-07] MEDS: ESCITALOPRAM 20 MG TAB PO SCH (10:02)
[2023-02-07 11:40] LABS: Glucose,Whole Blood 199 mg/dL (70-110)
--- NOTE | 2023-02-07 12:35 | PN ---
PROGRESS NOTE DATE OF SERVICE: 02/07/2023 SUBJECTIVE: This is a 72-year-old woman, who is admitted with abdominal pain, possible enteritis, is apparently improving slightly. The patient is on empiric antibiotics. White count is normal. Infectious Disease and Surgery is following the patient closely. The patient had history of gastric bypass. OBJECTIVE: VITAL SIGNS: Pulse is 55, blood pressure n, respirations 16. CHEST: Clear to auscultation. CARDIOVASCULAR: S1, S2. ABDOMEN: Soft, nontender. No guarding. No rigidity. LABORATORY DATA: Reviewed. ASSESSMENT: 1. Abdominal pain and vomiting, possible acute enteritis. 2. Elevated lactic acid, rule out sepsis. 3. Diabetes mellitus, type 2. 4. Hypertension. 5. Multiple medical issues. RECOMMENDATIONS: Recommend to continue current management and continue symptomatic treatment. I would recommend repeat labs and further recommendations to follow. Prognosis guarded. MMODL / IJN: [id number] / MTDD
[2023-02-07 13:46] LABS: Basophils % (A) 0 %; Eosinophils # (A) 0.6 k/uL (0-0.7); Eosinophils % (A) 10 %; HCT 38.5 % (34.0-46.0); HGB 12.5 gm/dL (11.4-16.0); Lymphocytes # (A) 1.4 k/uL (1.0-4.8); Lymphocytes % (A) 25 %; MCH 29.8 pg (25.0-35.0); MCHC 32.4 g/dL (31.0-37.0); MCV 91.8 fL (80.0-100.0); Mean Platelet Volume 7.9; Monocytes # (A) 0.4 k/uL (0-1.0); Monocytes % (A) 7 %; Neutrophils # (A) 3.1 k/uL (1.3-7.7); Neutrophils % (A) 54 %; Platelet Count 233 k/uL (150-450); RBC 4.19 m/uL (3.80-5.40); RDW 13.8 % (11.5-15.5); WBC 5.8 k/uL (3.8-10.6)
[2023-02-07 14:05] LABS: African American GFR (CKD) >90 (>60 ml/min/1.73 sqM); Anion Gap 1 mmol/L; Blood Urea Nitrogen 4 mg/dL (7-17); Calcium 8.3 mg/dL (8.4-10.2); Carbon Dioxide 33 mmol/L (22-30); Chloride 103 mmol/L (98-107); Glucose 201 mg/dL (74-99); Non-African American GFR(CKD) >90 (>60 ml/min/1.73 sqM); Potassium 4.2 mmol/L (3.5-5.1); Sodium 137 mmol/L (137-145)
--- NOTE | 2023-02-07 14:15 | P.PN ---
Subjective Progress Note Date: 02/07/23 Principal diagnosis: enteritis on CT, history of RNY gastric bypass 72F presented to ER with worsening abdominal pain. States her abdominal pain has been present for the past 2 months. Hasn't really had an appetite or been able to eat for the last two months. Symptoms worsened over the last few days, which prompted her ER visit. Endorses history of gastric bypass years ago & is unable to recall who her surgeon was or where her surgery was done. Last BM was day of admission. Not feeling any better than the past few days. No further BMs or flatus. Not taking much in orally. Still with abdominal pain & inability to tolerate PO intake. Objective - Vital Signs Vital signs: Vital Signs Temp 98.1 F 02/07/23 07:30 Pulse 67 02/07/23 07:30 Resp 16 02/07/23 07:30 BP 121/69 02/07/23 07:30 Pulse Ox 97 02/07/23 07:30 FiO2 Intake & Output 02/06/23 02/07/23 02/07/23 18:59 06:59 18:59 Intake Total 118 1236 Balance 118 1236 Intake: Intake, IV Titration 1000 Amount Piperacillin-Tazobactam 3 100 .375 gm In Sodium Chloride 0.9% 100 ml @ 25 mls/hr IVPB Q8HR [facility] Rx# :[id number] Sodium Chloride 0.9% 1, 800 000 ml @ 100 mls/hr IV . Q10H [facility] Rx#:[id number] metroNIDAZOLE-NS PMX 500 100 mg In Saline 1 100ml.bag @ 100 mls/hr IVPB Q8HR [facility] Rx#:[id number] Oral 118 236 Other: # Voids 2 2 2 # Bowel Movements 0 - Constitutional General appearance: Present: cooperative, no acute distress - EENT Eyes: Present: anicteric sclerae ENT: Present: hearing grossly normal - Neck Details: supple - Respiratory Details: non labored, normal effort - Cardiovascular Rhythm: regular - Gastrointestinal General gastrointestinal: Present: soft, tenderness (mild tenderness, no peritonitis). Absent: distended, rigid - Integumentary Integumentary Comment(s): warm & dry, no diaphoresis - Neurologic Neurologic Comment(s): no gross deficits - Musculoskeletal Musculoskeletal Comment(s): no LE edema - Psychiatric Psychiatric Comment(s): cooperative, normal affect - Labs CBC & Chem 7: 02/07/23 13:03 02/07/23 13:03 Labs: Abnormal Lab Results - Last 24 Hours (Table) 02/07/23 Range/Units 11:39 POC Glucose (mg/dL) 199 H (70-110) mg/dL Assessment and Plan Assessment: persistent abdominal pain enteritis with concern involving bypass limbs remote history of RNY anorexia with inability to tolerate PO intake impending malnutrition Plan: Continue IVF, abx [facility] due to non-improvement of all symptoms & inability to tolerate PO intake. No surgeons available locally with bariatric privileges.
--- NOTE | 2023-02-07 15:46 | P.PN ---
Subjective Progress Note Date: 02/07/23 Principal diagnosis: Abdominal CT abdominal, enteritis Patient is a 72-year-old female with a past medical history significant for diabetes mellitus and hypertension history of depression she has not for any patient presenting to the [facility] ER last night for evaluation of epigastric abdominal pain that has been getting worse for the last 2 months however has been worsening for 2 days with associated vomiting, patient did have a CT of abdominal pelvis did show status post gastric bypass anastomosis of small bowel with the stomach small bowel limb is dilated measuring up to 6.2 cm with wall thickening and concerning for enteritis. On today's evaluation that is 02/07/2023, patient denies having any fever or any chills patient is still complaining of epigastric abdominal pain and unable to keep anything down no chest pain shortness of breath or cough and have a bowel movement Objective - Vital Signs Vital signs: Vital Signs Temp 98.5 F 02/07/23 13:55 Pulse 63 02/07/23 13:55 Resp 16 02/07/23 13:55 BP 96/56 02/07/23 13:55 Pulse Ox 97 02/07/23 13:55 FiO2 Intake & Output 02/06/23 02/07/23 02/07/23 18:59 06:59 18:59 Intake Total 118 1236 Balance 118 1236 Intake: Intake, IV Titration 1000 Amount Piperacillin-Tazobactam 3 100 .375 gm In Sodium Chloride 0.9% 100 ml @ 25 mls/hr IVPB Q8HR [facility] Rx# :[id number] Sodium Chloride 0.9% 1, 800 000 ml @ 100 mls/hr IV . Q10H [facility] Rx#:[id number] metroNIDAZOLE-NS PMX 500 100 mg In Saline 1 100ml.bag @ 100 mls/hr IVPB Q8HR [facility] Rx#:[id number] Oral 118 236 Other: # Voids 2 2 2 # Bowel Movements 0 - Exam GENERAL DESCRIPTION: An elderly female lying in bed in no distress RESPIRATORY SYSTEM: Unlabored breathing , decreased breath sounds at bases HEART: S1 S2 regular rate and rhythm , ABDOMEN: Soft , mild tenderness EXTREMITIES: No edema feet - Labs CBC & Chem 7: 02/07/23 13:03 02/07/23 13:03 Labs: Abnormal Lab Results - Last 24 Hours (Table) 02/07/23 02/07/23 Range/Units 11:39 13:03 Carbon Dioxide 33 H (22-30) mmol/L BUN 4 L (7-17) mg/dL Glucose 201 H (74-99) mg/dL POC Glucose (mg/dL) 199 H (70-110) mg/dL Calcium 8.3 L (8.4-10.2) mg/dL Assessment and Plan (1) Abnormal abdominal CT scan Current Visit: Yes Status: Acute Code(s): R93.5 - ABN FINDINGS ON DX IMAGING OF ABD REGIONS, INC RETROPERITON SNOMED Code(s): 34358524828232301 (2) Enteritis Current Visit: Yes Status: Acute Code(s): K52.9 - NONINFECTIVE GASTROENTERITIS AND COLITIS, UNSPECIFIED SNOMED Code(s): 15830220 Plan: 1patient to the hospital abdominal pain and vomiting in this patient who did have a history of gastric bypass abnormality was seen on the CT with dilatation of the portion of the small bowel questionably related to obstruction and there is concern for possible enteritis possible infectious versus ischemia need to be rule out, we will need to cover for the enteric gram-negative to be the likely pathogen 2Patient to with the [facility] surgery recommended the patient to be transferred to be evaluated by bariatric surgeon Time with Patient: Less than 30
[2023-02-07 17:20] LABS: Glucose,Whole Blood 151 mg/dL (70-110)
[2023-02-07] MEDS: ATORVASTATIN 40 MG TAB PO SCH (19:52)
[2023-02-07] MEDS: haloperidoL 1 MG TAB PO SCH (19:52)
[2023-02-07 20:34] LABS: Glucose,Whole Blood 109 mg/dL (70-110)
[2023-02-08] MEDS: PIPERACILLIN-TAZOBACTAM 3.375 GM in SODIUM CHLORIDE 0.9% 100 ML IVPB SCH ×3 (00:25→17:14)
[2023-02-08] MEDS: SODIUM CHLORIDE 0.9% 1,000 ML IV SCH ×2 (00:25→18:11)
[2023-02-08 06:16] LABS: Glucose,Whole Blood 111 mg/dL (70-110)
[2023-02-08] MEDS: MORPHINE SULFATE 4 MG/ML SYRINGE IV PRN ×2 (07:41→18:54)
[2023-02-08] MEDS: INSULIN ASPART (NovoLOG) 100 UNIT/ML VIAL SQ SCH ×3 (08:21→18:09)
[2023-02-08] MEDS: metroNIDAZOLE-NS PMX 500 MG in SALINE 1 100ML.BAG IVPB SCH ×3 (08:22→23:18)
[2023-02-08 08:37] LABS: Basophils # (A) 0.05 X 10*3/uL (0.00-0.10); Basophils % (A) 0.8 %; Eosinophils % (A) 11.7 %; HCT 36.8 % (37.2-46.3); HGB 12.1 d/dL (12.0-15.0); Lymphocytes # (A) 2.13 X 10*3/uL (0.90-5.00); Lymphocytes % (A) 35.6 %; MCH 30.1 pg (27.0-32.0); MCHC 32.9 d/dL (32.0-37.0); MCV 91.5 FL (80.0-97.0); Mean Platelet Volume 10.6 FL (9.5-12.2); Monocytes # (A) 0.98 X 10*3/uL (0.20-1.00); Monocytes % (A) 16.4 %; NRBC Per 100 WBC 0 X 10*3/uL (0.00-0.01); Neutrophils # (A) 2.11 X 10*3/uL (1.80-7.70); Neutrophils % (A) 35.3 %; Platelet Count 234 X 10*3/uL (140-440); RBC 4.02 X 10*6/uL (4.10-5.20); RDW 13.2 % (11.5-14.5); WBC 5.98 X 10*3/uL (4.50-10.00)
[2023-02-08 08:45] LABS: BUN/Creat Ratio 6.83 Ratio (12.00-20.00); Blood Urea Nitrogen 4.1 mg/dL (9.0-27.0); Calcium 8.4 mg/dL (8.7-10.3); Carbon Dioxide 29.4 mmol/L (21.6-31.8); Chloride 110 mmol/L (96-109); Glucose 110 mg/dL (70-110); Potassium 4.1 mmol/L (3.5-5.5); Sodium 147 mmol/L (135-145)
[2023-02-08] MEDS: HEPARIN SODIUM,PORCINE/PF 5,000 UNIT/0.5 ML SYRINGE SQ SCH ×2 (09:21→19:53)
[2023-02-08] MEDS: GABAPENTIN 300 MG CAP PO SCH ×2 (09:21→19:53)
[2023-02-08] MEDS: PANTOPRAZOLE 40 MG/10 ML VIAL IVP SCH ×2 (09:22→19:54)
[2023-02-08] MEDS: ISOSORBIDE MONONITRATE ER 60 MG TAB.ER.24H PO SCH (09:22)
[2023-02-08] MEDS: ESCITALOPRAM 20 MG TAB PO SCH (09:22)
[2023-02-08] MEDS: LOSARTAN 50 MG TAB PO SCH (09:22)
[2023-02-08] MEDS: amLODIPine 5 MG TAB PO SCH (09:22)
[2023-02-08] MEDS: ARIPiprazole 15 MG TAB PO SCH (09:22)
[2023-02-08] MEDS: METOPROLOL SUCCINATE (ER) 50 MG TAB.ER.24H PO SCH (09:22)
[2023-02-08] MEDS: buPROPion XL 300 MG TAB.ER.24H PO SCH (09:22)
[2023-02-08 12:46] LABS: Glucose,Whole Blood 198 mg/dL (70-110)
[2023-02-08 17:42] LABS: Glucose,Whole Blood 131 mg/dL (70-110)
--- NOTE | 2023-02-08 17:50 | P.PN ---
Subjective Progress Note Date: 02/08/23 HISTORY OF PRESENT ILLNESS: This is a 78-year-old female with a previous medical history signif icant for diabetes mellitus type 2 with diabetic polyneuropathy, hypertension and hypertensive cardio vascular disease, hyperlipidemia, history of bipolar disorder depressed type, osteoporosis, history of gastric bypass surgery many years ago more than 11 years ago, patient has been having increased abdominal pain associated with nausea and recently not able to eat much and vomiting according to the patient for the past 2 month, over the last 2 days got worse [facility] ended up having a computed tomography scan of the abdomen and pelvis that didn't show the limb of the Tea-en-Y surgery with dilatation up to 6.2 cm concerning for enter itis versus ischemia, patient was seen in consultation by general surgery who recommended for the patient to be transferred to a tertiary care center like [facility] since they are not able to provide this service in the hospital and she needed to be evaluated by [facility] for further recommend addition patient continues to have abdominal pain associated with nausea and vomiting, patient has not been able to keep anything down, she has been treated with IV antibiotic and IV fluid resuscitation and antibiotic in the form of Zosyn and metronidazole, her white counts are back to normal, her labs are normal, attempted to transfer the patient through the transfer team to [facility] we will hopefully get some information about her tomorrow morning. REVIEW OF SYSTEMS: Constitutional: No documented fever, no chills, no night sweats. No weight change. No weakness, fatigue or lethargy. No daytime sleepiness. HEENT: No headache. No blurred vision or double vision, no loss of vision. No loss of Hearing, no ringing in the ears, no dizziness. No nasal drainage or congestion. No epistaxis. No sore throat. Lungs: No shortness of breath, no cough, no sputum production. No wheezing. Reports dyspnea with activity. Cardiovascular: No chest pain, no lower extremity edema. No palpitations. No paroxysmal nocturnal dyspnea. No orthopnea. No lightheadedness or dizziness. No syncopal episodes. Abdominal: Reports abdominal pain. positive for nausea, vomiting. No diarrhea. No constipation. No bloody or tarry stools reports loss of appetite. Genitourinary: No dysuria, increased frequency, urgency. No urinary retention. Musculoskeletal: No myalgias. No muscle weakness, no gait dysfunction, no frequent falls. No back pain. No neck pain. Integumentary: No wounds, no lesions. No rash or pruritus. No unusual bruising. No change in hair or nails. Neurologic: No aphasia. No facial droop. No change in mentation. No head injury. No headache. No paralysis. No paresthesia. Psychiatric: No depression. No anxiety. No mood swings. Endocrine: No abnormal blood sugars. No weight change. PHYSICAL EXAMINATION: General: 72-year-old female laying down in bed in no distress. HEENT: Head is atraumatic, normocephalic, pupils were equal round reactive to light and recommendation, extraocular muscle movement were intact, sclera nonicteric, conjunctivae were pale, mucous membranes of the mouth are somewhat dry. Neck: Supple, no JVP, normal carotid upstroke bilaterally, no lymphadenopathy. Chest: Decreased breath sounds at the bases, few rhonchi, no expiratory wheezes, no chest wall tenderness, no intercostal retractions. Heart: First heart sound is normal, second heart sounds normal there is KINZA 2/6 located at the left sternal border Abdomen: Soft, mild epigastric tenderness, nondistended, positive bowel sounds. Extremities: There is no edema no calf tenderness DP +2 bilaterally. Neurologic examination: Patient is awake alert and oriented X 3, cranial nerves II-12 appear grossly intact, muscle power were 5 out of 5 in upper extremities and 5 out of 5 in bilateral lower extremities, deep tendon reflexes normal bilaterally. ASSESSMENT AND PLAN: 1. Chronic abdominal pain in a patient with a prior history of gastric bypass surgery more than 11 years ago with dilatation of the small bowel limb to 6.2 cm suggestive of enteritis versus ischemia. Continue patient on IV antibiotic in the form of Rocephin and metronidazole, continue patient on IV fluid resuscitation, continue with a clear liquid diet for now, try to transfer the patient to tertiary care center based on the recommendation of over general surgery patient will need to be [facility], transfer team contacted awaiting the transfer hold for the next 24 hours. 2. Hypertension and hypertensive cardiovascular disease. Continue patient on losartan 50 mg once every day, continue metoprolol ER 50 mg once every day and amlodipine 5 minute gram orally once every day, monitor the patient pressure very closely 3. Hyperlipidemia. Continue atorvastatin 40 mg orally once every day per 4. Diabetes mellitus type 2 . Restart the patient on Lantus 12 units at bedtime along with NovoLog 6 units before each meal 3 times every day, monitor the patient blood glucose level III times every day per 5. Diabetic polyneuropathy. Continue gabapentin 600 mg orally twice every day. 6. CAD. Continue metoprolol ER 50 mg once every day, continue as a Sorbide mononitrate 60 mg orally once every day, continue atorvastatin 40 mg once every day, patient has been following with Dr. Florian. 7. Bipolar disorder depressed. Continue Abilify 7.5 mg once every day, Lexapro 20 mg once every day, bupropion 300 mg orally once every day. Patient has been under the care of psychiatry. 8. DVT prophylaxis. Continue heparin 5000 units subcutaneously every 12 hours. 9. GI prophylaxis. Continue Protonix 40 mg orally once every day. 10. Plan is to transfer the patient to [facility] tomorrow morning. Transfer team contacted and transfer is in progress. 11. Patient is full code Objective - Vital Signs Vital signs: Vital Signs Temp 97.6 F 02/08/23 13:45 Pulse 60 02/08/23 13:45 Resp 16 02/08/23 13:45 BP 101/63 02/08/23 13:45 Pulse Ox 93 L 02/08/23 13:45 FiO2 Intake & Output 02/07/23 02/08/23 02/08/23 18:59 06:59 18:59 Intake Total 1354 180 Balance 1354 180 Intake: Intake, IV Titration 1000 Amount Piperacillin-Tazobactam 3 100 .375 gm In Sodium Chloride 0.9% 100 ml @ 25 mls/hr IVPB Q8HR [facility] Rx# :[id number] Sodium Chloride 0.9% 1, 800 000 ml @ 100 mls/hr IV . Q10H [facility] Rx#:[id number] metroNIDAZOLE-NS PMX 500 100 mg In Saline 1 100ml.bag @ 100 mls/hr IVPB Q8HR [facility] Rx#:[id number] Oral 354 180 Other: Voiding Method Toilet # Voids 2 1 1 - Labs CBC & Chem 7: 02/08/23 05:58 02/08/23 05:58 Labs: Abnormal Lab Results - Last 24 Hours (Table) 02/08/23 02/08/23 02/08/23 Range/Units 05:58 05:58 06:15 RBC 4.02 L (4.10-5.20) X 10*6/uL Hct 36.8 L (37.2-46.3) % Eosinophils # 0.70 H (0.04-0.35) X 10*3/uL Sodium 147 H (135-145) mmol/L Chloride 110 H (96-109) mmol/L BUN 4.1 L (9.0-27.0) mg/dL BUN/Creatinine Ratio 6.83 L (12.00-20.00) Ratio POC Glucose (mg/dL) 111 H (70-110) mg/dL Calcium 8.4 L (8.7-10.3) mg/dL 02/08/23 Range/Units 12:44 RBC (4.10-5.20) X 10*6/uL Hct (37.2-46.3) % Eosinophils # (0.04-0.35) X 10*3/uL Sodium (135-145) mmol/L Chloride (96-109) mmol/L BUN (9.0-27.0) mg/dL BUN/Creatinine Ratio (12.00-20.00) Ratio POC Glucose (mg/dL) 198 H (70-110) mg/dL Calcium (8.7-10.3) mg/dL
[2023-02-08] MEDS: ATORVASTATIN 40 MG TAB PO SCH (19:53)
[2023-02-08 20:16] LABS: Glucose,Whole Blood 156 mg/dL (70-110)
[2023-02-08] MEDS: INSULIN DETEMIR (LEVEMIR) 100 UNIT/ML SYR SQ SCH (20:34)
--- NOTE | 2023-02-08 22:58 | P.PN ---
Subjective Progress Note Date: 02/08/23 Principal diagnosis: Abdominal CT abdominal, enteritis Patient is a 72-year-old female with a past medical history significant for diabetes mellitus and hypertension history of depression she has not for any patient presenting to the [facility] ER last night for evaluation of epigastric abdominal pain that has been getting worse for the last 2 months however has been worsening for 2 days with associated vomiting, patient did have a CT of abdominal pelvis did show status post gastric bypass anastomosis of small bowel with the stomach small bowel limb is dilated measuring up to 6.2 cm with wall thickening and concerning for enteritis. On today's evaluation that is 02/08/2023 patient denies having any fever or any chills still complaining of epigastric abdominal pain and unable to keep anything down no chest pain shortness of breath or cough Objective - Vital Signs Vital signs: Vital Signs Temp 98.3 F 02/08/23 06:55 Pulse 67 02/08/23 06:55 Resp 16 02/08/23 06:55 BP 154/80 02/08/23 06:55 Pulse Ox 94 L 02/08/23 06:55 FiO2 Intake & Output 02/07/23 02/08/23 02/08/23 18:59 06:59 18:59 Intake Total 1354 180 Balance 1354 180 Intake: Intake, IV Titration 1000 Amount Piperacillin-Tazobactam 3 100 .375 gm In Sodium Chloride 0.9% 100 ml @ 25 mls/hr IVPB Q8HR [facility] Rx# :[id number] Sodium Chloride 0.9% 1, 800 000 ml @ 100 mls/hr IV . Q10H [facility] Rx#:[id number] metroNIDAZOLE-NS PMX 500 100 mg In Saline 1 100ml.bag @ 100 mls/hr IVPB Q8HR [facility] Rx#:[id number] Oral 354 180 Other: Voiding Method Toilet # Voids 2 1 1 - Exam GENERAL DESCRIPTION: An elderly female lying in bed in no distress RESPIRATORY SYSTEM: Unlabored breathing , decreased breath sounds at bases HEART: S1 S2 regular rate and rhythm , ABDOMEN: Soft , mild tenderness EXTREMITIES: No edema feet - Labs CBC & Chem 7: 02/08/23 05:58 02/08/23 05:58 Labs: Abnormal Lab Results - Last 24 Hours (Table) 02/07/23 02/07/23 02/08/23 Range/Units 13:03 17:18 05:58 RBC 4.02 L (4.10-5.20) X 10*6/uL Hct 36.8 L (37.2-46.3) % Eosinophils # 0.70 H (0.04-0.35) X 10*3/uL Sodium (135-145) mmol/L Chloride (96-109) mmol/L Carbon Dioxide 33 H (22-30) mmol/L BUN 4 L (7-17) mg/dL BUN/Creatinine Ratio (12.00-20.00) Ratio Glucose 201 H (74-99) mg/dL POC Glucose (mg/dL) 151 H (70-110) mg/dL Calcium 8.3 L (8.4-10.2) mg/dL 02/08/23 02/08/23 02/08/23 Range/Units 05:58 06:15 12:44 RBC (4.10-5.20) X 10*6/uL Hct (37.2-46.3) % Eosinophils # (0.04-0.35) X 10*3/uL Sodium 147 H (135-145) mmol/L Chloride 110 H (96-109) mmol/L Carbon Dioxide (22-30) mmol/L BUN 4.1 L (7-17) mg/dL BUN/Creatinine Ratio 6.83 L (12.00-20.00) Ratio Glucose (74-99) mg/dL POC Glucose (mg/dL) 111 H 198 H (70-110) mg/dL Calcium 8.4 L (8.4-10.2) mg/dL Assessment and Plan (1) Abnormal abdominal CT scan Current Visit: Yes Status: Acute Code(s): R93.5 - ABN FINDINGS ON DX IMAGING OF ABD REGIONS, INC RETROPERITON SNOMED Code(s): 04590323898988716 (2) Enteritis Current Visit: Yes Status: Acute Code(s): K52.9 - NONINFECTIVE GASTROENTERITIS AND COLITIS, UNSPECIFIED SNOMED Code(s): 53549016 Plan: 1patient to the hospital abdominal pain and vomiting in this patient who did have a history of gastric bypass abnormality was seen on the CT with dilatation of the portion of the small bowel questionably related to obstruction and there is concern for possible enteritis possible infectious versus ischemia need to be rule out, we will need to cover for the enteric gram-negative to be the likely pathogen 2Patient is currently covered with Zosyn possibly waiting for transfer to be evaluated by bariatric surgery and will monitor clinical course closely Time with Patient: Less than 30
[2023-02-09 00:07] LABS: Glucose,Whole Blood 83 mg/dL (70-110)
[2023-02-09] MEDS: PIPERACILLIN-TAZOBACTAM 3.375 GM in SODIUM CHLORIDE 0.9% 100 ML IVPB SCH ×3 (00:23→18:29)
[2023-02-09 01:38] LABS: Glucose,Whole Blood 71 mg/dL (70-110)
[2023-02-09] MEDS: MORPHINE SULFATE 4 MG/ML SYRINGE IV PRN ×3 (01:39→19:03)
[2023-02-09] MEDS: SODIUM CHLORIDE 0.9% 1,000 ML IV SCH ×2 (04:56→14:57)
[2023-02-09 06:08] LABS: Glucose,Whole Blood 99 mg/dL (70-110)
[2023-02-09 07:26] LABS: Glucose,Whole Blood 81 mg/dL (70-110)
[2023-02-09 07:26] LABS: Glucose,Whole Blood 73 mg/dL (70-110)
[2023-02-09] MEDS: INSULIN ASPART (NovoLOG) 100 UNIT/ML VIAL SQ SCH ×3 (08:31→18:07)
[2023-02-09] MEDS: ESCITALOPRAM 20 MG TAB PO SCH (08:32)
[2023-02-09] MEDS: ISOSORBIDE MONONITRATE ER 60 MG TAB.ER.24H PO SCH (08:32)
[2023-02-09] MEDS: PANTOPRAZOLE 40 MG/10 ML VIAL IVP SCH ×2 (08:33→20:12)
[2023-02-09] MEDS: ARIPiprazole 15 MG TAB PO SCH (08:33)
[2023-02-09] MEDS: GABAPENTIN 300 MG CAP PO SCH ×2 (08:33→20:12)
[2023-02-09] MEDS: LOSARTAN 50 MG TAB PO SCH (08:33)
[2023-02-09] MEDS: amLODIPine 5 MG TAB PO SCH (08:33)
[2023-02-09] MEDS: buPROPion XL 300 MG TAB.ER.24H PO SCH (08:33)
[2023-02-09] MEDS: METOPROLOL SUCCINATE (ER) 50 MG TAB.ER.24H PO SCH (08:33)
[2023-02-09] MEDS: metroNIDAZOLE-NS PMX 500 MG in SALINE 1 100ML.BAG IVPB SCH ×2 (08:34→16:24)
[2023-02-09] MEDS: ONDANSETRON 4 MG/2 ML VIAL IVP PRN (08:50)
[2023-02-09] MEDS: HEPARIN SODIUM,PORCINE/PF 5,000 UNIT/0.5 ML SYRINGE SQ SCH ×2 (09:56→20:12)
[2023-02-09 11:42] LABS: ALT 17 U/L (8-44); AST 21 U/L (13-35); Albumin/Globulin Ratio 1.88 Ratio (1.60-3.17); Alkaline Phosphatase 45 U/L (41-126); BUN/Creat Ratio <5.00 Ratio (12.00-20.00); Blood Urea Nitrogen <3.5 mg/dL (9.0-27.0); Calcium 8.8 mg/dL (8.7-10.3); Carbon Dioxide 30.6 mmol/L (21.6-31.8); Chloride 110 mmol/L (96-109); Globulin 1.6 d/dL (1.6-3.3); Glucose 81 mg/dL (70-110); Potassium 4.1 mmol/L (3.5-5.5); Sodium 147 mmol/L (135-145); Total Bilirubin 0.4 mg/dL (0.3-1.2); Total Protein 4.6 d/dL (6.2-8.2)
[2023-02-09 11:52] LABS: Basophils # (A) 0.04 X 10*3/uL (0.00-0.10); Basophils % (A) 0.6 %; Eosinophils # (A) 0.68 X 10*3/uL (0.04-0.35); Eosinophils % (A) 10.3 %; HCT 37.5 % (37.2-46.3); HGB 12.2 d/dL (12.0-15.0); Lymphocytes # (A) 2.56 X 10*3/uL (0.90-5.00); Lymphocytes % (A) 38.7 %; MCHC 32.5 d/dL (32.0-37.0); MCV 92.1 FL (80.0-97.0); Mean Platelet Volume 10.4 FL (9.5-12.2); Monocytes % (A) 16.6 %; NRBC Per 100 WBC 0 X 10*3/uL (0.00-0.01); Neutrophils # (A) 2.22 X 10*3/uL (1.80-7.70); Neutrophils % (A) 33.6 %; Platelet Count 238 X 10*3/uL (140-440); RBC 4.07 X 10*6/uL (4.10-5.20); RDW 13.4 % (11.5-14.5); WBC 6.61 X 10*3/uL (4.50-10.00)
[2023-02-09 12:41] LABS: Glucose,Whole Blood 121 mg/dL (70-110)
[2023-02-09 17:45] LABS: Glucose,Whole Blood 158 mg/dL (70-110)
[2023-02-09 19:34] LABS: Glucose,Whole Blood 164 mg/dL (70-110)
[2023-02-09] MEDS: ATORVASTATIN 40 MG TAB PO SCH (20:12)
[2023-02-09] MEDS: INSULIN DETEMIR (LEVEMIR) 100 UNIT/ML SYR SQ SCH (20:13)
[2023-02-10] MEDS: metroNIDAZOLE-NS PMX 500 MG in SALINE 1 100ML.BAG IVPB SCH ×3 (00:35→16:11)
[2023-02-10] MEDS: SODIUM CHLORIDE 0.9% 1,000 ML IV SCH ×2 (01:49→12:20)
[2023-02-10] MEDS: PIPERACILLIN-TAZOBACTAM 3.375 GM in SODIUM CHLORIDE 0.9% 100 ML IVPB SCH ×3 (01:49→16:11)
[2023-02-10 06:07] LABS: Glucose,Whole Blood 63 mg/dL (70-110)
[2023-02-10 06:41] LABS: Glucose,Whole Blood 95 mg/dL (70-110)
[2023-02-10] MEDS: INSULIN ASPART (NovoLOG) 100 UNIT/ML VIAL SQ SCH ×3 (08:46→17:31)
[2023-02-10] MEDS: ESCITALOPRAM 20 MG TAB PO SCH (08:59)
[2023-02-10] MEDS: GABAPENTIN 300 MG CAP PO SCH ×2 (08:59→21:22)
[2023-02-10] MEDS: METOPROLOL SUCCINATE (ER) 50 MG TAB.ER.24H PO SCH (08:59)
[2023-02-10] MEDS: ISOSORBIDE MONONITRATE ER 60 MG TAB.ER.24H PO SCH (08:59)
[2023-02-10] MEDS: ARIPiprazole 15 MG TAB PO SCH (08:59)
[2023-02-10] MEDS: LOSARTAN 50 MG TAB PO SCH (08:59)
[2023-02-10] MEDS: buPROPion XL 300 MG TAB.ER.24H PO SCH (08:59)
[2023-02-10] MEDS: amLODIPine 5 MG TAB PO SCH (08:59)
[2023-02-10] MEDS: PANTOPRAZOLE 40 MG/10 ML VIAL IVP SCH ×2 (08:59→21:22)
[2023-02-10] MEDS: MORPHINE SULFATE 4 MG/ML SYRINGE IV PRN ×2 (09:00→16:11)
[2023-02-10] MEDS: ONDANSETRON 4 MG/2 ML VIAL IVP PRN (09:00)
[2023-02-10] MEDS: HEPARIN SODIUM,PORCINE/PF 5,000 UNIT/0.5 ML SYRINGE SQ SCH ×2 (09:15→21:22)
[2023-02-10 12:23] LABS: Glucose,Whole Blood 167 mg/dL (70-110)
[2023-02-10 12:54] VITALS: BMI 27.4
[2023-02-10 17:24] LABS: Glucose,Whole Blood 117 mg/dL (70-110)
--- NOTE | 2023-02-10 17:42 | P.PN ---
Subjective Progress Note Date: 02/09/23 HISTORY OF PRESENT ILLNESS: This is a 78-year-old female with a previous medical history signif icant for diabetes mellitus type 2 with diabetic polyneuropathy, hypertension and hypertensive cardio vascular disease, hyperlipidemia, history of bipolar disorder depressed type, osteoporosis, history of gastric bypass surgery many years ago more than 11 years ago, patient has been having increased abdominal pain associated with nausea and recently not able to eat much and vomiting according to the patient for the past 2 month, over the last 2 days got worse [facility] a [facility] tomography scan of the abdomen and pelvis that didn't show the limb of the Tea-en-Y surgery with dilatation up to 6.2 cm concerning for enter itis versus ischemia, patient was seen in consultation by general surgery who recommended for the patient to be transferred to a tertiary care center like [facility] since they are not able to provide this service in the hospital and she needed to be evaluated by [facility] for further recommend addition patient continues to have abdominal pain associated with nausea and vomiting, patient has not been able to keep anything down, she has been treated with IV antibiotic and IV fluid resuscitation and antibiotic in the form of Zosyn and metronidazole, her white counts are back to normal, her labs are normal, attempted to transfer the patient through the transfer team to [facility] we will hopefully get some information about her tomorrow morning. 02/09: Patient continues to be nauseated with vomiting on liquid diet and we are still awaiting the transfer to [facility] as there is no bed available, she continues to be on IVF we will switch to 0.45 saline at 75 cc/h we will continue with current treatment plan. REVIEW OF SYSTEMS: Constitutional: No documented fever, no chills, no night sweats. No weight change. No weakness, fatigue or lethargy. No daytime sleepiness. HEENT: No headache. No blurred vision or double vision, no loss of vision. No loss of Hearing, no ringing in the ears, no dizziness. No nasal drainage or congestion. No epistaxis. No sore throat. Lungs: No shortness of breath, no cough, no sputum production. No wheezing. Reports dyspnea with activity. Cardiovascular: No chest pain, no lower extremity edema. No palpitations. No paroxysmal nocturnal dyspnea. No orthopnea. No lightheadedness or dizziness. No syncopal episodes. Abdominal: Reports abdominal pain. positive for nausea, vomiting. No diarrhea. No constipation. No bloody or tarry stools reports loss of appetite. Genitourinary: No dysuria, increased frequency, urgency. No urinary retention. Musculoskeletal: No myalgias. No muscle weakness, no gait dysfunction, no frequent falls. No back pain. No neck pain. Integumentary: No wounds, no lesions. No rash or pruritus. No unusual bruising. No change in hair or nails. Neurologic: No aphasia. No facial droop. No change in mentation. No head injury. No headache. No paralysis. No paresthesia. Psychiatric: No depression. No anxiety. No mood swings. Endocrine: No abnormal blood sugars. No weight change. PHYSICAL EXAMINATION: General: 72-year-old female laying down in bed in no distress. HEENT: Head is atraumatic, normocephalic, pupils were equal round reactive to light and recommendation, extraocular muscle movement were intact, sclera nonicteric, conjunctivae were pale, mucous membranes of the mouth are somewhat dry. Neck: Supple, no JVP, normal carotid upstroke bilaterally, no lymphadenopathy. Chest: Decreased breath sounds at the bases, few rhonchi, no expiratory wheezes, no chest wall tenderness, no intercostal retractions. Heart: First heart sound is normal, second heart sounds normal there is KINZA 2/6 located at the left sternal border Abdomen: Soft, mild epigastric tenderness, nondistended, positive bowel sounds. Extremities: There is no edema no calf tenderness DP +2 bilaterally. Neurologic examination: Patient is awake alert and oriented X 3, cranial nerves II-12 appear grossly intact, muscle power were 5 out of 5 in upper extremities and 5 out of 5 in bilateral lower extremities, deep tendon reflexes normal bilaterally. ASSESSMENT AND PLAN: 1. Chronic abdominal pain in a patient with a prior history of gastric bypass surgery more than 11 years ago with dilatation of the small bowel limb to 6.2 cm suggestive of enteritis versus ischemia. Continue patient on IV antibiotic in the form of Rocephin and metronidazole, continue patient on IV fluid resuscitation, continue with a clear liquid diet for now, try to transfer the patient to tertiary care center based on the recommendation of over general surgery patient will need to be [facility], transfer team contacted awaiting the transfer hold for the next 24 hours. 2. Hypertension and hypertensive cardiovascular disease. Continue patient on losartan 50 mg once every day, continue metoprolol ER 50 mg once every day and amlodipine 5 minute gram orally once every day, monitor the patient pressure very closely 3. Hyperlipidemia. Continue atorvastatin 40 mg orally once every day per 4. Diabetes mellitus type 2 . Restart the patient on Lantus 12 units at bedtime along with NovoLog 6 units before each meal 3 times every day, monitor the patient blood glucose level III times every day per 5. Diabetic polyneuropathy. Continue gabapentin 600 mg orally twice every day. 6. CAD. Continue metoprolol ER 50 mg once every day, continue as a Sorbide mononitrate 60 mg orally once every day, continue atorvastatin 40 mg once every day, patient has been following with Dr. Florian. 7. Bipolar disorder depressed. Continue Abilify 7.5 mg once every day, Lexapro 20 mg once every day, bupropion 300 mg orally once every day. Patient has been under the care of psychiatry. 8. DVT prophylaxis. Continue heparin 5000 units subcutaneously every 12 hours. 9. GI prophylaxis. Continue Protonix 40 mg orally once every day. 10. Plan is to transfer the patient to [facility] tomorrow morning. Transfer team contacted and transfer is in progress. 11. Patient is full code Objective - Vital Signs Vital signs: Vital Signs Temp 98.1 F 02/10/23 15:00 Pulse 67 02/10/23 15:00 Resp 16 02/10/23 15:00 BP 105/65 02/10/23 15:00 Pulse Ox 96 02/10/23 15:00 FiO2 Intake & Output 02/09/23 02/10/23 02/10/23 18:59 06:59 18:59 Intake Total 360 Balance 360 Weight 68.039 kg Intake: Oral 360 Other: Voiding Method Toilet Toilet # Voids 1 2 1 - Labs CBC & Chem 7: 02/09/23 07:30 02/09/23 07:30 Labs: Abnormal Lab Results - Last 24 Hours (Table) 02/09/23 02/09/23 02/10/23 Range/Units 17:44 19:33 06:05 POC Glucose (mg/dL) 158 H 164 H 63 L (70-110) mg/dL 02/10/23 02/10/23 Range/Units 12:22 17:22 POC Glucose (mg/dL) 167 H 117 H (70-110) mg/dL
--- NOTE | 2023-02-10 18:16 | P.PN ---
Subjective Progress Note Date: 02/09/23 Principal diagnosis: Abdominal CT abdominal, enteritis Patient is a 72-year-old female with a past medical history significant for diabetes mellitus and hypertension history of depression she has not for any patient presenting to the [facility] ER last night for evaluation of epigastric abdominal pain that has been getting worse for the last 2 months however has been worsening for 2 days with associated vomiting, patient did have a CT of abdominal pelvis did show status post gastric bypass anastomosis of small bowel with the stomach small bowel limb is dilated measuring up to 6.2 cm with wall thickening and concerning for enteritis. On today's evaluation that is 02/09/2023 the patient remains to be afebrile patient is breathing comfortably still complaining of epigastric and upper abdominal pain along with nausea and did have episodes of vomiting did not have any bowel movement denies chest pain shortness of breath or cough Objective - Vital Signs Vital signs: Vital Signs Temp 98.4 F 02/09/23 07:20 Pulse 60 02/09/23 07:20 Resp 17 02/09/23 07:20 BP 126/78 02/09/23 07:20 Pulse Ox 93 L 02/09/23 07:20 FiO2 Intake & Output 02/08/23 02/09/23 02/09/23 18:59 06:59 18:59 Intake Total 478 Balance 478 Intake: Oral 478 Other: Voiding Method Toilet # Voids 1 1 1 - Exam GENERAL DESCRIPTION: An elderly female lying in bed in no distress RESPIRATORY SYSTEM: Unlabored breathing , decreased breath sounds at bases HEART: S1 S2 regular rate and rhythm , ABDOMEN: Soft , mild tenderness EXTREMITIES: No edema feet - Labs CBC & Chem 7: 02/09/23 07:30 02/09/23 07:30 Labs: Abnormal Lab Results - Last 24 Hours (Table) 02/08/23 02/08/23 02/08/23 Range/Units 05:58 05:58 12:44 RBC 4.02 L (4.10-5.20) X 10*6/uL Hct 36.8 L (37.2-46.3) % Eosinophils # 0.70 H (0.04-0.35) X 10*3/uL Sodium 147 H (135-145) mmol/L Chloride 110 H (96-109) mmol/L BUN 4.1 L (9.0-27.0) mg/dL BUN/Creatinine Ratio 6.83 L (12.00-20.00) Ratio POC Glucose (mg/dL) 198 H (70-110) mg/dL Calcium 8.4 L (8.7-10.3) mg/dL 02/08/23 02/08/23 Range/Units 17:39 20:15 RBC (4.10-5.20) X 10*6/uL Hct (37.2-46.3) % Eosinophils # (0.04-0.35) X 10*3/uL Sodium (135-145) mmol/L Chloride (96-109) mmol/L BUN (9.0-27.0) mg/dL BUN/Creatinine Ratio (12.00-20.00) Ratio POC Glucose (mg/dL) 131 H 156 H (70-110) mg/dL Calcium (8.7-10.3) mg/dL Assessment and Plan (1) Abnormal abdominal CT scan Current Visit: Yes Status: Acute Code(s): R93.5 - ABN FINDINGS ON DX IMAGING OF ABD REGIONS, INC RETROPERITON SNOMED Code(s): 25495903257902097 (2) Enteritis Current Visit: Yes Status: Acute Code(s): K52.9 - NONINFECTIVE GASTROENTERITIS AND COLITIS, UNSPECIFIED SNOMED Code(s): 28177278 Plan: 1patient to the hospital abdominal pain and vomiting in this patient who did have a history of gastric bypass abnormality was seen on the CT with dilatation of the portion of the small bowel questionably related to obstruction and there is concern for possible enteritis possible infectious versus ischemia need to be rule out, we will need to cover for the enteric gram-negative to be the likely pathogen 2Patient to continue with the Zosyn for now awaiting transfer to be evaluated by bariatric surgeon, question concern answered Time with Patient: Less than 30
--- NOTE | 2023-02-10 18:18 | P.PN ---
Subjective Progress Note Date: 02/10/23 Principal diagnosis: Abdominal CT abdominal, enteritis Patient is a 72-year-old female with a past medical history significant for diabetes mellitus and hypertension history of depression she has not for any patient presenting to the [facility] ER last night for evaluation of epigastric abdominal pain that has been getting worse for the last 2 months however has been worsening for 2 days with associated vomiting, patient did have a CT of abdominal pelvis did show status post gastric bypass anastomosis of small bowel with the stomach small bowel limb is dilated measuring up to 6.2 cm with wall thickening and concerning for enteritis. On today's evaluation that is 02/10/2023 the patient remains to be afebrile patient is breathing comfortably and remains to be on room air history complaining of epigastric abdominal pain and did have episode of vomiting no abdominal pain and no diarrhea Objective - Vital Signs Vital signs: Vital Signs Temp 98.7 F 02/10/23 08:28 Pulse 65 02/10/23 08:28 Resp 16 02/10/23 08:28 BP 155/75 02/10/23 08:28 Pulse Ox 94 L 02/10/23 08:28 FiO2 Intake & Output 02/09/23 02/10/23 02/10/23 18:59 06:59 18:59 Intake Total 360 Balance 360 Weight 68.039 kg Intake: Oral 360 Other: Voiding Method Toilet Toilet # Voids 1 2 - Exam GENERAL DESCRIPTION: An elderly female lying in bed in no distress RESPIRATORY SYSTEM: Unlabored breathing , decreased breath sounds at bases HEART: S1 S2 regular rate and rhythm , ABDOMEN: Soft , mild tenderness EXTREMITIES: No edema feet - Labs CBC & Chem 7: 02/09/23 07:30 02/09/23 07:30 Labs: Abnormal Lab Results - Last 24 Hours (Table) 02/09/23 02/09/23 02/10/23 Range/Units 17:44 19:33 06:05 POC Glucose (mg/dL) 158 H 164 H 63 L (70-110) mg/dL 02/10/23 Range/Units 12:22 POC Glucose (mg/dL) 167 H (70-110) mg/dL Assessment and Plan (1) Abnormal abdominal CT scan Current Visit: Yes Status: Acute Code(s): R93.5 - ABN FINDINGS ON DX IMAGING OF ABD REGIONS, INC RETROPERITON SNOMED Code(s): 17656940663958560 (2) Enteritis Current Visit: Yes Status: Acute Code(s): K52.9 - NONINFECTIVE GASTROENTERITIS AND COLITIS, UNSPECIFIED SNOMED Code(s): 75079274 Plan: this was a telehealth visit 1patient to the hospital abdominal pain and vomiting in this patient who did have a history of gastric bypass abnormality was seen on the CT with dilatation of the portion of the small bowel questionably related to obstruction and there is concern for possible enteritis possible infectious versus ischemia need to be rule out, we will need to cover for the enteric gram-negative to be the likely pathogen 2Patient to continue with the [facility] for now, pt is currently waiting for transfer to [facility] to be evaluated by bariatric surgeon Time with Patient: Less than 30
[2023-02-10] MEDS: SODIUM CHLORIDE 0.45% 1,000 ML IV SCH (18:31)
--- NOTE | 2023-02-10 19:46 | XR ---
EXAMINATION TYPE: XR abdomen 2V DATE OF EXAM: 02/10/2023 7:25 PM INDICATION: Patient age:Female; 72 years old; Reason for study: Nausea/vomiting; COMPARISON: CT 02/05/2023 TECHNIQUE: Two views of the abdomen were obtained. FINDINGS:. Dilated gas-filled loops of small bowel up to 4.1 cm. Which is not definitively seen on pr ior CT on 02/05/2023. The left abdominal dilated small bowel is seen on prior CT. There are stimulator device is present with tip terminating over the spine. No evidence of fracture. Few relatively less. Surgical suture in the pelvis. IMPRESSION: At least one dilated loop of small bowel is present filled with gas in the right lower quadrant which is new, left abdominal dilated small bowel correlates with finding on CT in 02-26..
[2023-02-10 20:08] LABS: Glucose,Whole Blood 93 mg/dL (70-110)
[2023-02-10] MEDS: ATORVASTATIN 40 MG TAB PO SCH (21:22)
[2023-02-10] MEDS: INSULIN DETEMIR (LEVEMIR) 100 UNIT/ML SYR SQ SCH (23:37)
[2023-02-11] MEDS: metroNIDAZOLE-NS PMX 500 MG in SALINE 1 100ML.BAG IVPB SCH ×4 (00:12→23:53)
[2023-02-11] MEDS: PIPERACILLIN-TAZOBACTAM 3.375 GM in SODIUM CHLORIDE 0.9% 100 ML IVPB SCH ×3 (01:29→18:23)
[2023-02-11 06:16] LABS: Glucose,Whole Blood 115 mg/dL (70-110)
[2023-02-11] MEDS: INSULIN ASPART (NovoLOG) 100 UNIT/ML VIAL SQ SCH ×3 (06:23→18:05)
--- NOTE | 2023-02-11 06:39 | P.PN ---
Subjective Progress Note Date: 02/10/23 HISTORY OF PRESENT ILLNESS: This is a 78-year-old female with a previous medical history signif icant for diabetes mellitus type 2 with diabetic polyneuropathy, hypertension and hypertensive cardio vascular disease, hyperlipidemia, history of bipolar disorder depressed type, osteoporosis, history of gastric bypass surgery many years ago more than 11 years ago, patient has been having increased abdominal pain associated with nausea and recently not able to eat much and vomiting according to the patient for the past 2 month, over the last 2 days got worse [facility] having a computed tomography scan of the abdomen and pelvis that didn't show the limb of the Tea-en-Y surgery with dilatation up to 6.2 cm concerning for enter itis versus ischemia, patient was seen in consultation by general surgery who recommended for the patient to be transferred to a tertiary care center like [facility] since they are not able to provide this service in the hospital and she needed to be evaluated by [facility] for further recommend addition patient continues to have abdominal pain associated with nausea and vomiting, patient has not been able to keep anything down, she has been treated with IV antibiotic and IV fluid resuscitation and antibiotic in the form of Zosyn and metronidazole, her white counts are back to normal, her labs are normal, attempted to transfer the patient through the transfer team to [facility] we will hopefully get some information about her tomorrow morning. 02/09: Patient continues to be nauseated with vomiting on liquid diet and we are still awaiting the transfer to [facility] as there is no bed available, she continues to be on IVF we will switch to 0.45 saline at 75 cc/h we will continue with current treatment plan. 02/10 : [facility] Called today and there was no bed available, we will continue to monitor and we will continue with supportive care with ABX and IVF and anti-emetics and await bed availability for transfer REVIEW OF SYSTEMS: Constitutional: No documented fever, no chills, no night sweats. No weight change. No weakness, fatigue or lethargy. No daytime sleepiness. HEENT: No headache. No blurred vision or double vision, no loss of vision. No loss of Hearing, no ringing in the ears, no dizziness. No nasal drainage or congestion. No epistaxis. No sore throat. Lungs: No shortness of breath, no cough, no sputum production. No wheezing. Reports dyspnea with activity. Cardiovascular: No chest pain, no lower extremity edema. No palpitations. No paroxysmal nocturnal dyspnea. No orthopnea. No lightheadedness or dizziness. No syncopal episodes. Abdominal: Reports abdominal pain. positive for nausea, vomiting. No diarrhea. No constipation. No bloody or tarry stools reports loss of appetite. Genitourinary: No dysuria, increased frequency, urgency. No urinary retention. Musculoskeletal: No myalgias. No muscle weakness, no gait dysfunction, no frequent falls. No back pain. No neck pain. Integumentary: No wounds, no lesions. No rash or pruritus. No unusual bruising. No change in hair or nails. Neurologic: No aphasia. No facial droop. No change in mentation. No head injury. No headache. No paralysis. No paresthesia. Psychiatric: No depression. No anxiety. No mood swings. Endocrine: No abnormal blood sugars. No weight change. PHYSICAL EXAMINATION: General: 72-year-old female laying down in bed in no distress. HEENT: Head is atraumatic, normocephalic, pupils were equal round reactive to l ight and recommendation, extraocular muscle movement were intact, sclera nonicteric, conjunctivae were pale, mucous membranes of the mouth are somewhat dry. Neck: Supple, no JVP, normal carotid upstroke bilaterally, no lymphadenopathy. Chest: Decreased breath sounds at the bases, few rhonchi, no expiratory wheezes, no chest wall tenderness, no intercostal retractions. Heart: First heart sound is normal, second heart sounds normal there is KINZA 2/6 located at the left sternal border Abdomen: Soft, mild epigastric tenderness, nondistended, positive bowel sounds. Extremities: There is no edema no calf tenderness DP +2 bilaterally. Neurologic examination: Patient is awake alert and oriented X 3, cranial nerves II-12 appear grossly intact, muscle power were 5 out of 5 in upper extremities and 5 out of 5 in bilateral lower extremities, deep tendon reflexes normal bilaterally. ASSESSMENT AND PLAN: 1. Chronic abdominal pain in a patient with a prior history of gastric bypass surgery more than 11 years ago with dilatation of the small bowel limb to 6.2 cm suggestive of enteritis versus ischemia. Continue patient on IV antibiotic in the form of Rocephin and metronidazole, continue patient on IV fluid resuscitation, continue with a clear liquid diet for now, try to transfer the patient to tertiary care center based on the recommendation of over general surgery patient will need to be evaluated at the [facility], transfer team contacted awaiting the transfer hold for the next 24 hours. 2. Hypertension and hypertensive cardiovascular disease. Continue patient on losartan 50 mg once every day, continue metoprolol ER 50 mg once every day and amlodipine 5 minute gram orally once every day, monitor the patient pressure very closely 3. Hyperlipidemia. Continue atorvastatin 40 mg orally once every day per 4. Diabetes mellitus type 2 . Restart the patient on Lantus 12 units at bedtime along with NovoLog 6 units before each meal 3 times every day, monitor the patient blood glucose level III times every day per 5. Diabetic polyneuropathy. Continue gabapentin 600 mg orally twice every day. 6. CAD. Continue metoprolol ER 50 mg once every day, continue as a Sorbide mononitrate 60 mg orally once every day, continue atorvastatin 40 mg once every day, patient has been following with Dr. Florian. 7. Bipolar disorder depressed. Continue Abilify 7.5 mg once every day, Lexapro 20 mg once every day, bupropion 300 mg orally once every day. Patient has been under the care of psychiatry. 8. DVT prophylaxis. Continue heparin 5000 units subcutaneously every 12 hours. 9. GI prophylaxis. Continue Protonix 40 mg orally once every day. 10. Plan is to transfer the patient to [facility] tomorrow morning. Transfer team contacted and transfer is in progress. 11. Patient is full code 12. Family updated about the current situation. Objective - Vital Signs Vital signs: Vital Signs Temp 98.1 F 02/10/23 15:00 Pulse 67 02/10/23 15:00 Resp 16 02/10/23 15:00 BP 105/65 02/10/23 15:00 Pulse Ox 96 02/10/23 15:00 FiO2 Intake & Output 02/09/23 02/10/23 02/10/23 18:59 06:59 18:59 Intake Total 360 Balance 360 Weight 68.039 kg Intake: Oral 360 Other: Voiding Method Toilet Toilet # Voids 1 2 1 - Labs CBC & Chem 7: 02/09/23 07:30 02/09/23 07:30 Labs: Abnormal Lab Results - Last 24 Hours (Table) 02/09/23 02/09/23 02/10/23 Range/Units 17:44 19:33 06:05 POC Glucose (mg/dL) 158 H 164 H 63 L (70-110) mg/dL 02/10/23 02/10/23 Range/Units 12:22 17:22 POC Glucose (mg/dL) 167 H 117 H (70-110) mg/dL
[2023-02-11 09:07] LABS: Basophils # (A) 0.04 X 10*3/uL (0.00-0.10); Basophils % (A) 0.6 %; Eosinophils # (A) 0.62 X 10*3/uL (0.04-0.35); HCT 36.9 % (37.2-46.3); HGB 11.9 d/dL (12.0-15.0); Lymphocytes # (A) 1.89 X 10*3/uL (0.90-5.00); Lymphocytes % (A) 27.4 %; MCH 30.1 pg (27.0-32.0); MCHC 32.2 d/dL (32.0-37.0); MCV 93.2 FL (80.0-97.0); Mean Platelet Volume 10.6 FL (9.5-12.2); Monocytes # (A) 1.22 X 10*3/uL (0.20-1.00); Monocytes % (A) 17.7 %; NRBC Per 100 WBC 0 X 10*3/uL (0.00-0.01); Neutrophils # (A) 3.12 X 10*3/uL (1.80-7.70); Platelet Count 206 X 10*3/uL (140-440); RBC 3.96 X 10*6/uL (4.10-5.20); RDW 13.4 % (11.5-14.5); WBC 6.91 X 10*3/uL (4.50-10.00)
[2023-02-11 09:17] LABS: ALT 22 U/L (8-44); AST 24 U/L (13-35); Albumin 2.8 d/dL (3.8-4.9); Albumin/Globulin Ratio 1.65 Ratio (1.60-3.17); Alkaline Phosphatase 51 U/L (41-126); BUN/Creat Ratio <5.83 Ratio (12.00-20.00); Blood Urea Nitrogen <3.5 mg/dL (9.0-27.0); Calcium 8.4 mg/dL (8.7-10.3); Carbon Dioxide 29.2 mmol/L (21.6-31.8); Chloride 108 mmol/L (96-109); Globulin 1.7 d/dL (1.6-3.3); Glucose 119 mg/dL (70-110); Potassium 3.8 mmol/L (3.5-5.5); Sodium 144 mmol/L (135-145); Total Bilirubin 0.4 mg/dL (0.3-1.2); Total Protein 4.5 d/dL (6.2-8.2)
[2023-02-11] MEDS: ISOSORBIDE MONONITRATE ER 60 MG TAB.ER.24H PO SCH (09:34)
[2023-02-11] MEDS: buPROPion XL 300 MG TAB.ER.24H PO SCH (09:34)
[2023-02-11] MEDS: HEPARIN SODIUM,PORCINE/PF 5,000 UNIT/0.5 ML SYRINGE SQ SCH ×2 (09:34→21:02)
[2023-02-11] MEDS: GABAPENTIN 300 MG CAP PO SCH ×2 (09:35→21:00)
[2023-02-11] MEDS: ARIPiprazole 15 MG TAB PO SCH (09:35)
[2023-02-11] MEDS: ESCITALOPRAM 20 MG TAB PO SCH (09:35)
[2023-02-11] MEDS: amLODIPine 5 MG TAB PO SCH (09:35)
[2023-02-11] MEDS: PANTOPRAZOLE 40 MG/10 ML VIAL IVP SCH ×2 (09:35→21:01)
[2023-02-11] MEDS: LOSARTAN 50 MG TAB PO SCH (09:35)
[2023-02-11] MEDS: METOPROLOL SUCCINATE (ER) 50 MG TAB.ER.24H PO SCH (09:36)
[2023-02-11] MEDS: ONDANSETRON 4 MG/2 ML VIAL IVP PRN ×2 (09:39→21:00)
[2023-02-11] MEDS: MORPHINE SULFATE 4 MG/ML SYRINGE IV PRN ×2 (10:50→21:11)
[2023-02-11 12:07] LABS: Glucose,Whole Blood 235 mg/dL (70-110)
[2023-02-11] MEDS: SODIUM CHLORIDE 0.45% 1,000 ML IV SCH (13:13)
--- NOTE | 2023-02-11 14:48 | P.PN ---
Subjective Progress Note Date: 02/11/23 Principal diagnosis: Abdominal CT abdominal, enteritis Patient is a 72-year-old female with a past medical history significant for diabetes mellitus and hypertension history of depression she has not for any patient presenting to the [facility] ER last night for evaluation of epigastric abdominal pain that has been getting worse for the last 2 months however has been worsening for 2 days with associated vomiting, patient did have a CT of abdominal pelvis did show status post gastric bypass anastomosis of small bowel with the stomach small bowel limb is dilated measuring up to 6.2 cm with wall thickening and concerning for enteritis. On today's evaluation that is 02/11/2023 the patient is afebrile patient is breathing comfortably and remains to be on room air history complaining of epigastric abdominal pain and did have episode of vomiting no diarrhea Objective - Vital Signs Vital signs: Vital Signs Temp 98.0 F 02/11/23 07:00 Pulse 74 02/11/23 07:00 Resp 16 02/11/23 07:00 BP 119/63 02/11/23 07:00 Pulse Ox 91 L 02/11/23 07:00 FiO2 Intake & Output 02/10/23 02/11/23 02/11/23 18:59 06:59 18:59 Weight 68.039 kg Other: # Voids 1 1 - Exam GENERAL DESCRIPTION: An elderly female lying in bed in no distress RESPIRATORY SYSTEM: Unlabored breathing , decreased breath sounds at bases HEART: S1 S2 regular rate and rhythm , ABDOMEN: Soft , mild tenderness EXTREMITIES: No edema feet - Labs CBC & Chem 7: 02/11/23 06:32 02/11/23 06:32 Labs: Abnormal Lab Results - Last 24 Hours (Table) 02/10/23 02/10/23 02/11/23 Range/Units 12:22 17:22 06:14 RBC (4.10-5.20) X 10*6/uL Hgb (12.0-15.0) d/dL Hct (37.2-46.3) % Monocytes # (0.20-1.00) X 10*3/uL Eosinophils # (0.04-0.35) X 10*3/uL BUN (9.0-27.0) mg/dL BUN/Creatinine Ratio (12.00-20.00) Ratio Glucose (70-110) mg/dL POC Glucose (mg/dL) 167 H 117 H 115 H (70-110) mg/dL Calcium (8.7-10.3) mg/dL Total Protein (6.2-8.2) d/dL Albumin (3.8-4.9) d/dL 02/11/23 02/11/23 Range/Units 06:32 06:32 RBC 3.96 L (4.10-5.20) X 10*6/uL Hgb 11.9 L (12.0-15.0) d/dL Hct 36.9 L (37.2-46.3) % Monocytes # 1.22 H (0.20-1.00) X 10*3/uL Eosinophils # 0.62 H (0.04-0.35) X 10*3/uL BUN <3.5 L (9.0-27.0) mg/dL BUN/Creatinine Ratio <5.83 L (12.00-20.00) Ratio Glucose 119 H (70-110) mg/dL POC Glucose (mg/dL) (70-110) mg/dL Calcium 8.4 L (8.7-10.3) mg/dL Total Protein 4.5 L (6.2-8.2) d/dL Albumin 2.8 L (3.8-4.9) d/dL Assessment and Plan (1) Abnormal abdominal CT scan Current Visit: Yes Status: Acute Code(s): R93.5 - ABN FINDINGS ON DX IMAGING OF ABD REGIONS, INC RETROPERITON SNOMED Code(s): 52376980361715664 (2) Enteritis Current Visit: Yes Status: Acute Code(s): K52.9 - NONINFECTIVE GASTROENT ERITIS AND COLITIS, UNSPECIFIED SNOMED Code(s): 07215547 Plan: this was a telehealth visit 1patient to the hospital abdominal pain and vomiting in this patient who did have a history of gastric bypass abnormality was seen on the CT with dilatation of the portion of the small bowel questionably related to obstruction and there is concern for possible enteritis possible infectious versus ischemia need to be rule out, we will need to cover for the enteric gram-negative to be the likely pathogen 2Patient will continue with the Zosyn awaiting transfer to [facility] to be evaluated by bariatric surgeon Time with Patient: Less than 30
[2023-02-11 17:11] LABS: Glucose,Whole Blood 87 mg/dL (70-110)
--- NOTE | 2023-02-11 17:55 | P.PN ---
Subjective Progress Note Date: 02/11/23 This is a 78-year-old female with a previous medical history significant for diabetes mellitus type 2 with diabetic polyneuropathy, hypertension and hypertensive cardio vascular disease, hyperlipidemia, history of bipolar disorder depressed type, osteoporosis, history of gastric bypass surgery many years ago more than 11 years ago, patient has been having increased abdominal pain associated with nausea and recently not able to eat much and vomiting according to the patient for the past 2 month, over the last 2 days got worse [facility] ended up having a computed tomography scan of the abdomen and pelvis that didn't show the limb of the Tea-en-Y surgery with dilatation up to 6.2 cm concerning for enteritis versus ischemia, patient was seen in consultation by general surgery who recommended for the patient to be transferred to a tertiary care center like [facility] since they are not able to provide this service in the hospital and she needed to be evaluated by [facility] for further recommend addition patient continues to have abdominal pain associated with nausea and vomiting, patient has not been able to keep anything down, she has been treated with IV antibiotic and IV fluid resuscitation and antibiotic in the form of Zosyn and metronidazole, her white counts are back to normal, her labs are normal, attempted to transfer the patient through the transfer team to [facility] we will hopefully get some information about her tomorrow morning. 02/09: Patient continues to be nauseated with vomiting on liquid diet and we are still awaiting the transfer to [facility] as there is no bed available, she continues to be on IVF we will switch to 0.45 saline at 75 cc/h we will continue with current treatment plan. 02/10 : [facility] Called today and there was no bed available, we will continue to monitor and we will continue with supportive care with ABX and IVF and anti-emetics and await bed availability for transfer 02/11/2023 Patient is seen and evaluated in follow-up today reporting continued abdominal pain and discomfort in the mid epigastric region with some tenderness on palpation. Patient is having some nausea with vomiting and is maintained on clear liquids. Patient also continues on gentle IV hydration along with IV antibiotics with infectious disease following closely. General surgery following recommending transfer to tertiary treatment center at a bariatric surgery center for further evaluation. Patient is afebrile with no reports of chest pain or shortness of breath noted. Patient had abdominal x-ray ordered yesterday. Review of systems: Constitutional: No reports of fatigue, fever, or chills Cardiovascular: No reports of chest pain or palpitations Respiratory: No reports of shortness of breath or cough GI: reports of nausea with vomiting, or diarrhea reports mid epigastric abdominal discomfort and tenderness : No reports of dysuria or retention Neurovascular: No reports of weakness or numbness All medications have been reviewed PHYSICAL EXAMINATION: General: 72-year-old female sitting up in the chair in no acute distress. Well-developed, well-nourished, elderly-appearing HEENT: Head is atraumatic, normocephalic, pupils were equal round reactive to light and recommendation, extraocular muscle movement were intact, sclera nonicteric, conjunctivae were pale, mucous membranes of the mouth are somewhat dry. Neck: Supple, no JVP, normal carotid upstroke bilaterally, no lymphadenopathy. Chest: Decreased breath sounds at the bases, few rhonchi, no expiratory wheezes, no chest wall tenderness, no intercostal retractions. Heart: First heart sound is normal, second heart sounds normal there is KINZA 2/6 located at the left sternal border Abdomen: Soft, mild epigastric tenderness, nondistended, positive bowel sounds. Extremities: There is no edema no calf tenderness DP +2 bilaterally. Neurologic examination: Patient is awake alert and oriented X 3, cranial nerves II-12 appear grossly intact, muscle power were 5 out of 5 in upper extremities and 5 out of 5 in bilateral lower extremities, deep tendon reflexes normal bilaterally. ASSESSMENT AND PLAN: 1. Chronic abdominal pain in a patient with a prior history of gastric bypass surgery more than 11 years ago with dilatation of the small bowel to 6.2 cm suggestive of enteritis versus ischemia. Continue patient on IV antibiotic in the form of Rocephin and metronidazole, continue patient on until IV fluid resuscitation, continue with a clear liquid diet for now, try to transfer the patient to tertiary care center based on the recommendation of general surgery. patient will need to be evaluated at the [facility], transfer team contacted awaiting a bed availability at [facility] transfer team called to notify there were no beds available today on 02/11/2023. 2. Hypertension and hypertensive cardiovascular disease. Continue patient on losartan 50 mg once every day, continue metoprolol ER 50 mg once every day and amlodipine 5 mg orally once every day, monitor the patient pressure very closely 3. Hyperlipidemia. Continue atorvastatin 40 mg orally once every day per 4. Diabetes mellitus type 2 . Restart the patient on Lantus 12 units at bedtime along with NovoLog 6 units before each meal 3 times every day, monitor the patient blood glucose with Accu-Cheks before meals and at bedtime 5. Diabetic polyneuropathy. Continue gabapentin 600 mg orally twice every day. 6. CAD. Continue metoprolol ER 50 mg once every day, continue as a Sorbide mononitrate 60 mg orally once every day, continue atorvastatin 40 mg once every day, patient has been following with Dr. Florian. 7. Bipolar disorder/ depression. Continue Abilify 7.5 mg once every day, Lexapro 20 mg once every day, bupropion 300 mg orally once every day. Patient has been under the care of psychiatry. 8. DVT prophylaxis. Continue heparin 5000 units subcutaneously every 12 hours. 9. GI prophylaxis. Continue Protonix 40 mg orally once every day. 10. Plan is to transfer the patient to [facility] once a bed is available.. Transfer team called the unit to make us aware there is no bed available today. 11. Patient is full code Currently covering for Dr. Gottlieb who will resume care on 02/13/2023 The impression and plan of care has been dictated by Bernadette Evangelista, Nurse Practitioner as directed. Dr. Torres MD I have performed a history and examination and MDM of this patient, discussed th with the dictator, and agree with the dictator's assessment and plan as written ,documented as a scribe. Based on total visit time, I have performed more than 50% of the visit. Objective - Vital Signs Vital signs: Vital Signs Temp 98.0 F 02/11/23 07:00 Pulse 74 02/11/23 07:00 Resp 16 02/11/23 07:00 BP 119/63 02/11/23 07:00 Pulse Ox 91 L 02/11/23 07:00 FiO2 Intake & Output 02/10/23 02/11/23 02/11/23 18:59 06:59 18:59 Weight 68.039 kg Other: # Voids 1 1 - Labs CBC & Chem 7: 02/11/23 06:32 02/11/23 06:32 Labs: Abnormal Lab Results - Last 24 Hours (Table) 02/10/23 02/10/23 02/11/23 Range/Units 12:22 17:22 06:14 RBC (4.10-5.20) X 10*6/uL Hgb (12.0-15.0) d/dL Hct (37.2-46.3) % Monocytes # (0.20-1.00) X 10*3/uL Eosinophils # (0.04-0.35) X 10*3/uL BUN (9.0-27.0) mg/dL BUN/Creatinine Ratio (12.00-20.00) Ratio Glucose (70-110) mg/dL POC Glucose (mg/dL) 167 H 117 H 115 H (70-110) mg/dL Calcium (8.7-10.3) mg/dL Total Protein (6.2-8.2) d/dL Albumin (3.8-4.9) d/dL 02/11/23 02/11/23 Range/Units 06:32 06:32 RBC 3.96 L (4.10-5.20) X 10*6/uL Hgb 11.9 L (12.0-15.0) d/dL Hct 36.9 L (37.2-46.3) % Monocytes # 1.22 H (0.20-1.00) X 10*3/uL Eosinophils # 0.62 H (0.04-0.35) X 10*3/uL BUN <3.5 L (9.0-27.0) mg/dL BUN/Creatinine Ratio <5.83 L (12.00-20.00) Ratio Glucose 119 H (70-110) mg/dL POC Glucose (mg/dL) (70-110) mg/dL Calcium 8.4 L (8.7-10.3) mg/dL Total Protein 4.5 L (6.2-8.2) d/dL Albumin 2.8 L (3.8-4.9) d/dL
[2023-02-11 19:54] LABS: Glucose,Whole Blood 148 mg/dL (70-110)
[2023-02-11] MEDS: ATORVASTATIN 40 MG TAB PO SCH (21:00)
[2023-02-11] MEDS: INSULIN DETEMIR (LEVEMIR) 100 UNIT/ML SYR SQ SCH (21:01)
[2023-02-12] MEDS: PIPERACILLIN-TAZOBACTAM 3.375 GM in SODIUM CHLORIDE 0.9% 100 ML IVPB SCH ×3 (00:55→17:21)
[2023-02-12 02:21] LABS: Glucose,Whole Blood 154 mg/dL (70-110)
[2023-02-12 05:54] LABS: Glucose,Whole Blood 80 mg/dL (70-110)
[2023-02-12] MEDS: INSULIN ASPART (NovoLOG) 100 UNIT/ML VIAL SQ SCH ×3 (06:49→18:11)
[2023-02-12] MEDS: metroNIDAZOLE-NS PMX 500 MG in SALINE 1 100ML.BAG IVPB SCH ×3 (08:19→23:57)
[2023-02-12] MEDS: LOSARTAN 50 MG TAB PO SCH (08:20)
[2023-02-12] MEDS: ARIPiprazole 15 MG TAB PO SCH (08:20)
[2023-02-12] MEDS: ISOSORBIDE MONONITRATE ER 60 MG TAB.ER.24H PO SCH (08:21)
[2023-02-12] MEDS: HEPARIN SODIUM,PORCINE/PF 5,000 UNIT/0.5 ML SYRINGE SQ SCH ×2 (08:21→20:24)
[2023-02-12] MEDS: amLODIPine 5 MG TAB PO SCH (08:21)
[2023-02-12] MEDS: buPROPion XL 300 MG TAB.ER.24H PO SCH (08:21)
[2023-02-12] MEDS: PANTOPRAZOLE 40 MG/10 ML VIAL IVP SCH ×2 (08:21→20:24)
[2023-02-12] MEDS: METOPROLOL SUCCINATE (ER) 50 MG TAB.ER.24H PO SCH (08:21)
[2023-02-12] MEDS: GABAPENTIN 300 MG CAP PO SCH ×2 (08:21→20:24)
[2023-02-12] MEDS: ESCITALOPRAM 20 MG TAB PO SCH (08:21)
[2023-02-12 08:22] LABS: Glucose,Whole Blood 87 mg/dL (70-110)
[2023-02-12] MEDS: SODIUM CHLORIDE 0.45% 1,000 ML IV SCH (08:22)
[2023-02-12] MEDS: ONDANSETRON 4 MG/2 ML VIAL IVP PRN (08:24)
[2023-02-12 11:33] LABS: Glucose,Whole Blood 125 mg/dL (70-110)
--- NOTE | 2023-02-12 13:44 | XR ---
EXAMINATION TYPE: XR abdomen acute w cxr DATE OF EXAM: 02/12/2023 1:37 PM INDICATION: Patient age:Female; 72 years old; Reason for study: vomiting and nausea; PHH. COMPARISON: Abdominal radiograph 02/10/2023, CT abdomen pelvis 02/05/2023 TECHNIQUE: Two radiographic views of the abdomen and an a chest radiograph were obtained. FINDINGS CHEST: Lungs/Pleura: The lungs are clear. There is no evidence of pleural effusion, focal consolidation or p neumothorax. Mediastinum: Unremarkable. Vasculature: Normal. Heart: Normal in size. Musculoskeletal: The osseous structures are intact. Right shoulder arthropathy. Small right-sided rib fracture. Other findings: Thoracic spinal leads identified. FINDINGS ABDOMEN: Bowel gas pattern: Normal without dilated loops of small or large bowel. Fecal material and gas are d emonstrated throughout the colon and rectum. Suture material within the left upper quadrant. Calcifications: Multiple pelvic phleboliths.. Musculoskeletal: S-shaped scoliotic curvature. Degenerative changes of the lumbar spine. Other: Power pack device over the left flank.. IMPRESSION: 1. No radiographic evidence for acute abdominal process. 2. No acute cardiopulmonary process
[2023-02-12 14:03] LABS: Basophils # (A) 0.04 X 10*3/uL (0.00-0.10); Basophils % (A) 0.7 %; Eosinophils # (A) 0.54 X 10*3/uL (0.04-0.35); Eosinophils % (A) 9.9 %; HCT 37.9 % (37.2-46.3); HGB 12.3 d/dL (12.0-15.0); Lymphocytes # (A) 1.68 X 10*3/uL (0.90-5.00); Lymphocytes % (A) 30.7 %; MCH 30.1 pg (27.0-32.0); MCHC 32.5 d/dL (32.0-37.0); MCV 92.7 FL (80.0-97.0); Mean Platelet Volume 10.5 FL (9.5-12.2); Monocytes # (A) 1.02 X 10*3/uL (0.20-1.00); Monocytes % (A) 18.6 %; NRBC Per 100 WBC 0 X 10*3/uL (0.00-0.01); Neutrophils # (A) 2.19 X 10*3/uL (1.80-7.70); Neutrophils % (A) 39.9 %; Platelet Count 226 X 10*3/uL (140-440); RBC 4.09 X 10*6/uL (4.10-5.20); RDW 13.4 % (11.5-14.5); WBC 5.48 X 10*3/uL (4.50-10.00)
[2023-02-12 14:09] LABS: BUN/Creat Ratio <5.00 Ratio (12.00-20.00); Blood Urea Nitrogen <3.5 mg/dL (9.0-27.0); Calcium 8.9 mg/dL (8.7-10.3); Carbon Dioxide 29.5 mmol/L (21.6-31.8); Chloride 109 mmol/L (96-109); Glucose 103 mg/dL (70-110); Magnesium 1.7 mg/dL (1.5-2.4); Potassium 3.6 mmol/L (3.5-5.5); Sodium 145 mmol/L (135-145)
[2023-02-12] MEDS: METOCLOPRAMIDE 5 MG/ML 2 ML VIAL IVP SCH ×3 (14:33→23:56)
--- NOTE | 2023-02-12 15:39 | P.PN ---
Subjective Progress Note Date: 02/12/23 This is a 78-year-old female with a previous medical history significant for diabetes mellitus type 2 with diabetic polyneuropathy, hypertension and hypertensive cardio vascular disease, hyperlipidemia, history of bipolar disorder depressed type, osteoporosis, history of gastric bypass surgery many years ago more than 11 years ago, patient has been having increased abdominal pain associated with nausea and recently not able to eat much and vomiting according to the patient for the past 2 month, over the last 2 days got worse [facility] having a computed tomography scan of the abdomen and pelvis that didn't show the limb of the Tea-en-Y surgery with dilatation up to 6.2 cm concerning for enteritis versus ischemia, patient was seen in consultation by general surgery who recommended for the patient to be transferred to a tertiary care center like [facility] since they are not able to provide this service in the hospital and she needed to be evaluated by [facility] for further recommend addition patient continues to have abdominal pain associated with nausea and vomiting, patient has not been able to keep anything down, she has been treated with IV antibiotic and IV fluid resuscitation and antibiotic in the form of Zosyn and metronidazole, her white counts are back to normal, her labs are normal, attempted to transfer the patient through the transfer team to [facility] we will hopefully get some information about her tomorrow morning. 02/09: Patient continues to be nauseated with vomiting on liquid diet and we are still awaiting the transfer to [facility] as there is no bed available, she continues to be on IVF we will switch to 0.45 saline at 75 cc/h we will continue with current treatment plan. 02/10 : [facility] Called today and there was no bed available, we will continue to monitor and we will continue with supportive care with ABX and IVF and anti-emetics and await bed availability for transfer 02/11/2023 Patient is seen and evaluated in follow-up today reporting continued abdominal pain and discomfort in the mid epigastric region with some tenderness on palpation. Patient is having some nausea with vomiting and is maintained on clear liquids. Patient also continues on gentle IV hydration along with IV antibiotics with infectious disease following closely. General surgery following recommending transfer to tertiary treatment center at a bariatric surgery center for further evaluation. Patient is afebrile with no reports of chest pain or shortness of breath noted. Patient had abdominal x-ray ordered yesterday. 02/12/2023 Patient is seen and evaluated today currently sitting up at the site of the bed with daughter at the bedside. Patient reports she continues to have nausea although less frequent vomiting and per daughter has been noticing that she is almost instantly vomiting after each feeding she is eating that contains protein. Patient has been vomiting the broth as well as ensure and would like to see if we could avoid protein. Gen. surgery following has made recommendations to transfer to tertiary treatment and will obtain follow-up abdominal x-ray. Patient is tolerating the Jell-O with no nausea or vomiting and may consider some saltine crackers or very light bland diet. Would recommend surgery to reevaluate and make recommendations accordingly. Patient is afebrile with no reports of chest pain or shortness of breath. Patient maintained on gentle IV hydration and will continue for now. Recommend follow- up labs. Magnesium is 1.7 and will replace per protocol. Review of systems: Constitutional: No reports of fatigue, fever, or chills Cardiovascular: No reports of chest pain or palpitations Respiratory: No reports of shortness of breath or cough GI: reports of nausea with some vomiting although less, or diarrhea reports less mid epigastric abdominal discomfort and tenderness, reports had 3 bowel movements that were soft : No reports of dysuria or retention Neurovascular: No reports of weakness or numbness All medications have been reviewed PHYSICAL EXAMINATION: General: 72-year-old female sitting up in the side of the bed in no acute distress. Well-developed, well-nourished, elderly-appearing HEENT: Head is atraumatic, normocephalic, pupils were equal round reactive to light and recommendation, extraocular muscle movement were intact, sclera nonicteric, conjunctivae were pale, mucous membranes of the mouth are somewhat dry. Neck: Supple, no JVP, normal carotid upstroke bilaterally, no lymphadenopathy. Chest: Decreased breath sounds at the bases, few rhonchi, no expiratory wheezes, no chest wall tenderness, no intercostal retractions. Heart: First heart sound is normal, second heart sounds normal there is KINZA 2/6 located at the left sternal border Abdomen: Soft, mild epigastric tenderness although less painful than yesterday, nondistended, positive bowel sounds. Extremities: There is no edema no calf tenderness DP +2 bilaterally. Neurologic examination: Patient is awake alert and oriented X 3, cranial nerves II-12 appear grossly intact, muscle power were 5 out of 5 in upper extremities and 5 out of 5 in bilateral lower extremities, deep tendon reflexes normal bilaterally. ASSESSMENT AND PLAN: 1. Chronic abdominal pain in a patient with a prior history of gastric bypass surgery more than 11 years ago with dilatation of the small bowel to 6.2 cm suggestive of enteritis versus ischemia. Continue patient on IV antibiotic in the form of Rocephin and metronidazole, continue patient on until IV fluid resuscitation, continue with a clear liquid diet for now, trying to transfer the patient to tertiary care center based on the recommendation of general surgery. patient will need to be evaluated at the [facility], transfer team contacted awaiting a bed availability at [facility]. [facility] transfer team called to notify there were no beds available today on 02/11/2023. Recommend reevaluation of general surgery for possible diet recommendations as patient is more nauseated and vomiting when receiving a clear liquid center containing protein. Patient is tolerating Jell-O and water with no vomiting noted. Repeat abdominal x-ray today shows no radiographic evidence for acute abdominal process and no acute cardiopulmonary process and there is bowel gas pattern that is normal without dilated loops of small or large bowel and fecal matter and gas are demonstrated throughout the colon and rectum. 2. Hypertension and hypertensive cardiovascular disease. Continue patient on losartan 50 mg once every day, continue metoprolol ER 50 mg once every day and amlodipine 5 mg orally once every day, monitor the patient pressure very closely 3. Hyperlipidemia. Continue atorvastatin 40 mg orally once every day per 4. Diabetes mellitus type 2 . Restart the patient on Lantus 12 units at bedtime along with NovoLog 6 units before each meal 3 times every day, monitor the patient blood glucose with Accu-Cheks before meals and at bedtime 5. Diabetic polyneuropathy. Continue gabapentin 600 mg orally twice every day. 6. CAD. Continue metoprolol ER 50 mg once every day, continue as a Sorbide mononitrate 60 mg orally once every day, continue atorvastatin 40 mg once every day, patient has been following with Dr. Florian. 7. Bipolar disorder/ depression. Continue Abilify 7.5 mg once every day, Lexapro 20 mg once every day, bupropion 300 mg orally once every day. Patient has been under the care of psychiatry. 8. DVT prophylaxis. Continue heparin 5000 units subcutaneously every 12 hours. 9. GI prophylaxis. Continue Protonix 40 mg orally once every day. 10. Plan is to transfer the patient to [facility] once a bed is available.. Transfer team called the unit to make us aware there is no bed available today. 11. Patient is full code Currently covering for Dr. Gottlieb who will resume care on 02/13/2023 The impression and plan of care has been dictated by Bernadette Evangelista, Nurse Practitioner as directed. Dr. Torres MD I have performed a history and examination and MDM of this patient, discussed the same with the dictator, and agree with the dictator's assessment and plan as written ,documented as a scribe. Based on total visit time, I have performed more than 50% of the visit. Objective - Vital Signs Vital signs: Vital Signs Temp 98.4 F 02/12/23 07:00 Pulse 67 02/12/23 07:00 Resp 14 02/12/23 07:00 BP 111/52 02/12/23 07:00 Pulse Ox 95 02/12/23 07:00 FiO2 Intake & Output 02/11/23 02/12/23 02/12/23 18:59 06:59 18:59 Intake Total 0 Balance 0 Weight 68.039 kg Intake: Oral 0 Other: # Voids 3 2 # Bowel Movements 2 - Labs CBC & Chem 7: 02/12/23 07:16 02/12/23 07:16 Labs: Abnormal Lab Results - Last 24 Hours (Table) 02/11/23 02/11/23 02/12/23 Range/Units 12:06 19:53 02:20 POC Glucose (mg/dL) 235 H 148 H 154 H (70-110) mg/dL
[2023-02-12] MEDS: MORPHINE SULFATE 4 MG/ML SYRINGE IV PRN ×2 (16:19→20:38)
[2023-02-12] MEDS: MAGNESIUM SULFATE-D5W PMX 1 GM in DEXTROSE/WATER 1 100ML.BAG IVPB SCH ×2 (16:52→18:10)
[2023-02-12 17:36] LABS: Glucose,Whole Blood 154 mg/dL (70-110)
[2023-02-12 19:59] LABS: Glucose,Whole Blood 240 mg/dL (70-110)
[2023-02-12] MEDS: ATORVASTATIN 40 MG TAB PO SCH (20:24)
[2023-02-12] MEDS: INSULIN DETEMIR (LEVEMIR) 100 UNIT/ML SYR SQ SCH (20:24)
[2023-02-13] MEDS: PIPERACILLIN-TAZOBACTAM 3.375 GM in SODIUM CHLORIDE 0.9% 100 ML IVPB SCH ×4 (01:21→23:31)
[2023-02-13 03:15] LABS: Glucose,Whole Blood 79 mg/dL (70-110)
[2023-02-13 06:18] LABS: Glucose,Whole Blood 93 mg/dL (70-110)
[2023-02-13] MEDS: METOCLOPRAMIDE 5 MG/ML 2 ML VIAL IVP SCH ×4 (06:22→23:31)
[2023-02-13] MEDS: SODIUM CHLORIDE 0.45% 1,000 ML IV SCH (06:23)
[2023-02-13] MEDS: INSULIN ASPART (NovoLOG) 100 UNIT/ML VIAL SQ SCH ×3 (07:45→17:19)
[2023-02-13] MEDS: GABAPENTIN 300 MG CAP PO SCH ×2 (08:06→20:34)
[2023-02-13] MEDS: METOPROLOL SUCCINATE (ER) 50 MG TAB.ER.24H PO SCH (08:07)
[2023-02-13] MEDS: amLODIPine 5 MG TAB PO SCH (08:07)
[2023-02-13] MEDS: ESCITALOPRAM 20 MG TAB PO SCH (08:07)
[2023-02-13] MEDS: HEPARIN SODIUM,PORCINE/PF 5,000 UNIT/0.5 ML SYRINGE SQ SCH ×2 (08:07→20:34)
[2023-02-13] MEDS: PANTOPRAZOLE 40 MG/10 ML VIAL IVP SCH ×2 (08:07→20:35)
[2023-02-13] MEDS: ISOSORBIDE MONONITRATE ER 60 MG TAB.ER.24H PO SCH (08:07)
[2023-02-13] MEDS: metroNIDAZOLE-NS PMX 500 MG in SALINE 1 100ML.BAG IVPB SCH ×2 (08:07→16:05)
[2023-02-13] MEDS: LOSARTAN 50 MG TAB PO SCH (08:07)
[2023-02-13] MEDS: buPROPion XL 300 MG TAB.ER.24H PO SCH (08:08)
[2023-02-13] MEDS: ARIPiprazole 15 MG TAB PO SCH (08:08)
[2023-02-13 08:40] LABS: BUN/Creat Ratio <5.00 Ratio (12.00-20.00); Blood Urea Nitrogen <3.5 mg/dL (9.0-27.0); Calcium 8.8 mg/dL (8.7-10.3); Carbon Dioxide 27.7 mmol/L (21.6-31.8); Chloride 108 mmol/L (96-109); Glucose 97 mg/dL (70-110); Magnesium 1.9 mg/dL (1.5-2.4); Potassium 3.8 mmol/L (3.5-5.5); Sodium 144 mmol/L (135-145)
--- NOTE | 2023-02-13 08:59 | P.PN ---
Progress Note - Text Progress Note Date: 02/13/23 SHORT SURGICAL PROGRESS NOTE Unfortunately due to patient's previous history of RNY gastric bypass with inability to tolerate PO intake, she needs to be seen by a bariatric specialist. May need EGD with dilation vs revision of Still recommend transfer to higher level of care. I do not have bariatric privileges. If Satnam Lofton not available, may need to reach out to Andrey Oleary, [facility], [place] or [facility]; all have bariatric surgeons. Locally, I believe the only surgeon who does RNY gastric bypass locally is Dr. Hernandez. If she is available & willing, you may consider consulting her.
[2023-02-13 09:34] LABS: Basophils # (A) 0.05 X 10*3/uL (0.00-0.10); Basophils % (A) 0.8 %; Eosinophils # (A) 0.51 X 10*3/uL (0.04-0.35); Eosinophils % (A) 8.1 %; HCT 38.3 % (37.2-46.3); HGB 12.6 d/dL (12.0-15.0); Lymphocytes # (A) 1.65 X 10*3/uL (0.90-5.00); Lymphocytes % (A) 26.4 %; MCH 30.4 pg (27.0-32.0); MCHC 32.9 d/dL (32.0-37.0); MCV 92.5 FL (80.0-97.0); Mean Platelet Volume 10.1 FL (9.5-12.2); Monocytes # (A) 1.13 X 10*3/uL (0.20-1.00); Monocytes % (A) 18.1 %; NRBC Per 100 WBC 0 X 10*3/uL (0.00-0.01); Neutrophils # (A) 2.91 X 10*3/uL (1.80-7.70); Neutrophils % (A) 46.4 %; Platelet Count 224 X 10*3/uL (140-440); RBC 4.14 X 10*6/uL (4.10-5.20); RDW 13.5 % (11.5-14.5); WBC 6.26 X 10*3/uL (4.50-10.00)
[2023-02-13 11:49] LABS: Glucose,Whole Blood 205 mg/dL (70-110)
[2023-02-13] MEDS: MORPHINE SULFATE 4 MG/ML SYRINGE IV PRN ×2 (14:04→20:33)
--- NOTE | 2023-02-13 14:56 | P.PN ---
Subjective Progress Note Date: 02/12/23 Principal diagnosis: Abdominal CT abdominal, enteritis Patient is a 72-year-old female with a past medical history significant for diabetes mellitus and hypertension history of depression she has not for any patient presenting to the [facility] ER last night for evaluation of epigastric abdominal pain that has been getting worse for the last 2 months however has been worsening for 2 days with associated vomiting, patient did have a CT of abdominal pelvis did show status post gastric bypass anastomosis of small bowel with the stomach small bowel limb is dilated measuring up to 6.2 cm with wall thickening and concerning for enteritis. On today's evaluation that is 02/12/2023 the patient remains to be afebrile, patient is breathing comfortably on room air , patient is complaining of epigastric abdominal pain and did have episode of vomiting no diarrhea Objective - Vital Signs Vital signs: Vital Signs Temp 97.6 F 02/12/23 19:05 Pulse 81 02/12/23 19:05 Resp 18 02/12/23 19:05 BP 136/73 02/12/23 19:05 Pulse Ox 97 02/12/23 19:05 FiO2 Intake & Output 02/12/23 02/12/23 02/13/23 06:59 18:59 06:59 Intake Total 0 Balance 0 Intake: Oral 0 Other: # Voids 2 4 # Bowel Movements 1 - Exam GENERAL DESCRIPTION: An elderly female lying in bed in no distress RESPIRATORY SYSTEM: Unlabored breathing , decreased breath sounds at bases HEART: S1 S2 regular rate and rhythm , ABDOMEN: Soft , mild tenderness EXTREMITIES: No edema feet - Labs CBC & Chem 7: 02/13/23 06:18 02/13/23 06:18 Labs: Abnormal Lab Results - Last 24 Hours (Table) 02/12/23 02/12/23 02/12/23 Range/Units 02:20 07:16 07:16 RBC 4.09 L (4.10-5.20) X 10*6/uL Monocytes # 1.02 H (0.20-1.00) X 10*3/uL Eosinophils # 0.54 H (0.04-0.35) X 10*3/uL BUN <3.5 L (9.0-27.0) mg/dL BUN/Creatinine Ratio <5.00 L (12.00-20.00) Ratio POC Glucose (mg/dL) 154 H (70-110) mg/dL 02/12/23 02/12/23 02/12/23 Range/Units 11:32 17:34 19:58 RBC (4.10-5.20) X 10*6/uL Monocytes # (0.20-1.00) X 10*3/uL Eosinophils # (0.04-0.35) X 10*3/uL BUN (9.0-27.0) mg/dL BUN/Creatinine Ratio (12.00-20.00) Ratio POC Glucose (mg/dL) 125 H 154 H 240 H (70-110) mg/dL Assessment and Plan (1) Abnormal abdominal CT scan Current Visit: Yes Status: Acute Code(s): R93.5 - ABN FINDINGS ON DX IMAGING OF ABD REGIONS, INC RETROPERITON SNOMED Code(s): 55085584499059212 (2) Enteritis Current Visit: Yes Status: Acute Code(s): K52.9 - NONINFECTIVE GASTROENTERIT IS AND COLITIS, UNSPECIFIED SNOMED Code(s): 18564964 Plan: 1patient to the hospital abdominal pain and vomiting in this patient who did have a history of gastric bypass abnormality was seen on the CT with dilatation of the portion of the small bowel questionably related to obstruction and there is concern for possible enteritis possible infectious versus ischemia need to be rule out, we will need to cover for the enteric gram-negative to be the likely pathogen 2Patient is currently covered with the Zosyn awaiting transfer to [facility] to be evaluated by bariatric surgeon, question concerns has been answered Time with Patient: Less than 30
--- NOTE | 2023-02-13 14:57 | P.PN ---
Subjective Progress Note Date: 02/13/23 Principal diagnosis: Abdominal CT abdominal, enteritis Patient is a 72-year-old female with a past medical history significant for diabetes mellitus and hypertension history of depression she has not for any patient presenting to the [facility] ER last night for evaluation of epigastric abdominal pain that has been getting worse for the last 2 months however has been worsening for 2 days with associated vomiting, patient did have a CT of abdominal pelvis did show status post gastric bypass anastomosis of small bowel with the stomach small bowel limb is dilated measuring up to 6.2 cm with wall thickening and concerning for enteritis. On today's evaluation that is 02/13/2023 the patient continues to be afebrile, patient is breathing comfortably on room air , patient still complaining of nausea unable to do certain tab of fluid down and epigastric abdominal pain no diarrhea no chest pain shortness of breath or cough Objective - Vital Signs Vital signs: Vital Signs Temp 98.2 F 02/13/23 06:50 Pulse 65 02/13/23 08:00 Resp 16 02/13/23 08:00 BP 128/77 02/13/23 06:50 Pulse Ox 97 02/13/23 06:50 FiO2 Intake & Output 02/12/23 02/13/23 02/13/23 18:59 06:59 18:59 Intake Total 0 Balance 0 Intake: Oral 0 Other: Voiding Method Toilet Toilet # Voids 4 3 # Bowel Movements 1 - Exam GENERAL DESCRIPTION: An elderly female lying in bed in no distress RESPIRATORY SYSTEM: Unlabored breathing , decreased breath sounds at bases HEART: S1 S2 regular rate and rhythm , ABDOMEN: Soft , mild tenderness EXTREMITIES: No edema feet - Labs CBC & Chem 7: 02/13/23 06:18 02/13/23 06:18 Labs: Abnormal Lab Results - Last 24 Hours (Table) 02/12/23 02/12/23 02/12/23 Range/Units 07:16 07:16 17:34 RBC 4.09 L (4.10-5.20) X 10*6/uL Monocytes # 1.02 H (0.20-1.00) X 10*3/uL Eosinophils # 0.54 H (0.04-0.35) X 10*3/uL BUN <3.5 L (9.0-27.0) mg/dL BUN/Creatinine Ratio <5.00 L (12.00-20.00) Ratio POC Glucose (mg/dL) 154 H (70-110) mg/dL 02/12/23 02/13/23 02/13/23 Range/Units 19:58 06:18 06:18 RBC (4.10-5.20) X 10*6/uL Monocytes # 1.13 H (0.20-1.00) X 10*3/uL Eosinophils # 0.51 H (0.04-0.35) X 10*3/uL BUN <3.5 L (9.0-27.0) mg/dL BUN/Creatinine Ratio <5.00 L (12.00-20.00) Ratio POC Glucose (mg/dL) 240 H (70-110) mg/dL 02/13/23 Range/Units 11:47 RBC (4.10-5.20) X 10*6/uL Monocytes # (0.20-1.00) X 10*3/uL Eosinophils # (0.04-0.35) X 10*3/uL BUN (9.0-27.0) mg/dL BUN/Creatinine Ratio (12.00-20.00) Ratio POC Glucose (mg/dL) 205 H (70-110) mg/dL Assessment and Plan (1) Abnormal abdominal CT scan Current Visit: Yes Status: Acute Code(s): R93.5 - ABN FINDINGS ON DX IMAGING OF ABD REGIONS, INC RETROPERITON SNOMED Code(s): 80647080495754132 (2) Enteritis Current Visit: Yes Status: Acute Code(s): K52.9 - NONINFECTIVE GASTROENTERITIS AND COLITIS, UNSPECIFIED SNOMED Code(s): 64886878 Plan: 1patient to the hospital abdominal pain and vomiting in this patient who did have a history of gastric bypass abnormality was seen on the CT with dilatation of the portion of the small bowel questionably related to obstruction and there is concern for possible enteritis possible infectious versus ischemia need to be rule out, we will need to cover for the enteric gram-negative to be the likely pathogen 2Patient is currently covered with the Zosyn , with unavailability of her surgeon at [facility] may be evaluated by Dr. Hernandez at this facility as per note of the surgeon, and discussed with the admitting physician Time with Patient: Less than 30
[2023-02-13 17:12] LABS: Glucose,Whole Blood 101 mg/dL (70-110)
[2023-02-13] MEDS: ATORVASTATIN 40 MG TAB PO SCH (20:34)
[2023-02-13 21:50] LABS: Glucose,Whole Blood 182 mg/dL (70-110)
[2023-02-13] MEDS: INSULIN DETEMIR (LEVEMIR) 100 UNIT/ML SYR SQ SCH (21:54)
[2023-02-14 02:52] LABS: Glucose,Whole Blood 79 mg/dL (70-110)
[2023-02-14] MEDS: SODIUM CHLORIDE 0.45% 1,000 ML IV SCH (03:05)
[2023-02-14] MEDS: METOCLOPRAMIDE 5 MG/ML 2 ML VIAL IVP SCH ×3 (05:39→17:37)
[2023-02-14 05:51] LABS: Glucose,Whole Blood 94 mg/dL (70-110)
[2023-02-14] MEDS: INSULIN ASPART (NovoLOG) 100 UNIT/ML VIAL SQ SCH ×3 (06:14→17:35)
[2023-02-14] MEDS: GABAPENTIN 300 MG CAP PO SCH ×2 (08:44→21:54)
[2023-02-14] MEDS: PIPERACILLIN-TAZOBACTAM 3.375 GM in SODIUM CHLORIDE 0.9% 100 ML IVPB SCH ×2 (08:44→16:28)
[2023-02-14] MEDS: HEPARIN SODIUM,PORCINE/PF 5,000 UNIT/0.5 ML SYRINGE SQ SCH ×2 (08:44→21:54)
[2023-02-14] MEDS: ISOSORBIDE MONONITRATE ER 60 MG TAB.ER.24H PO SCH (08:45)
[2023-02-14] MEDS: ESCITALOPRAM 20 MG TAB PO SCH (08:45)
[2023-02-14] MEDS: ARIPiprazole 15 MG TAB PO SCH (08:45)
[2023-02-14] MEDS: amLODIPine 5 MG TAB PO SCH (08:45)
[2023-02-14] MEDS: PANTOPRAZOLE 40 MG/10 ML VIAL IVP SCH ×2 (08:45→21:54)
[2023-02-14] MEDS: buPROPion XL 300 MG TAB.ER.24H PO SCH (08:45)
[2023-02-14] MEDS: METOPROLOL SUCCINATE (ER) 50 MG TAB.ER.24H PO SCH (08:45)
[2023-02-14] MEDS: LOSARTAN 50 MG TAB PO SCH (08:45)
[2023-02-14 08:52] LABS: Basophils # (A) 0.04 X 10*3/uL (0.00-0.10); Basophils % (A) 0.7 %; Eosinophils # (A) 0.44 X 10*3/uL (0.04-0.35); Eosinophils % (A) 7.9 %; HCT 34.5 % (37.2-46.3); HGB 11.3 d/dL (12.0-15.0); Lymphocytes # (A) 1.35 X 10*3/uL (0.90-5.00); Lymphocytes % (A) 24.2 %; MCH 30.1 pg (27.0-32.0); MCHC 32.8 d/dL (32.0-37.0); MCV 91.8 FL (80.0-97.0); Monocytes # (A) 1.26 X 10*3/uL (0.20-1.00); Monocytes % (A) 22.5 %; NRBC Per 100 WBC 0 X 10*3/uL (0.00-0.01); Neutrophils # (A) 2.49 X 10*3/uL (1.80-7.70); Neutrophils % (A) 44.5 %; Platelet Count 217 X 10*3/uL (140-440); RBC 3.76 X 10*6/uL (4.10-5.20); RDW 13.6 % (11.5-14.5); WBC 5.59 X 10*3/uL (4.50-10.00)
[2023-02-14 08:58] LABS: ALT 23 U/L (8-44); AST 24 U/L (13-35); Albumin 2.7 d/dL (3.8-4.9); Albumin/Globulin Ratio 1.69 Ratio (1.60-3.17); Alkaline Phosphatase 51 U/L (41-126); BUN/Creat Ratio <5.83 Ratio (12.00-20.00); Blood Urea Nitrogen <3.5 mg/dL (9.0-27.0); Calcium 8.6 mg/dL (8.7-10.3); Carbon Dioxide 26.8 mmol/L (21.6-31.8); Chloride 107 mmol/L (96-109); Globulin 1.6 d/dL (1.6-3.3); Glucose 91 mg/dL (70-110); Potassium 3.5 mmol/L (3.5-5.5); Sodium 142 mmol/L (135-145); Total Bilirubin 0.3 mg/dL (0.3-1.2); Total Protein 4.3 d/dL (6.2-8.2)
[2023-02-14 11:35] LABS: Glucose,Whole Blood 199 mg/dL (70-110)
[2023-02-14] MEDS: MORPHINE SULFATE 4 MG/ML SYRINGE IV PRN ×2 (11:50→16:33)
[2023-02-14 17:34] LABS: Glucose,Whole Blood 83 mg/dL (70-110)
[2023-02-14 21:08] LABS: Glucose,Whole Blood 127 mg/dL (70-110)
[2023-02-14] MEDS: ATORVASTATIN 40 MG TAB PO SCH (21:54)
[2023-02-15] MEDS: INSULIN DETEMIR (LEVEMIR) 100 UNIT/ML SYR SQ SCH ×2 (00:23→19:52)
[2023-02-15] MEDS: SODIUM CHLORIDE 0.45% 1,000 ML IV SCH ×2 (00:24→18:05)
[2023-02-15] MEDS: METOCLOPRAMIDE 5 MG/ML 2 ML VIAL IVP SCH ×4 (00:59→18:06)
[2023-02-15] MEDS: PIPERACILLIN-TAZOBACTAM 3.375 GM in SODIUM CHLORIDE 0.9% 100 ML IVPB SCH ×3 (00:59→16:39)
[2023-02-15] MEDS: MORPHINE SULFATE 4 MG/ML SYRINGE IV PRN (05:57)
[2023-02-15 06:22] LABS: Glucose,Whole Blood 104 mg/dL (70-110)
[2023-02-15] MEDS: INSULIN ASPART (NovoLOG) 100 UNIT/ML VIAL SQ SCH ×3 (09:35→18:04)
[2023-02-15] MEDS: LOSARTAN 50 MG TAB PO SCH (09:36)
[2023-02-15] MEDS: ISOSORBIDE MONONITRATE ER 60 MG TAB.ER.24H PO SCH (09:36)
[2023-02-15] MEDS: buPROPion XL 300 MG TAB.ER.24H PO SCH (09:36)
[2023-02-15] MEDS: METOPROLOL SUCCINATE (ER) 50 MG TAB.ER.24H PO SCH (09:36)
[2023-02-15] MEDS: amLODIPine 5 MG TAB PO SCH (09:36)
[2023-02-15] MEDS: ESCITALOPRAM 20 MG TAB PO SCH (09:36)
[2023-02-15] MEDS: HEPARIN SODIUM,PORCINE/PF 5,000 UNIT/0.5 ML SYRINGE SQ SCH ×2 (09:36→19:33)
[2023-02-15] MEDS: GABAPENTIN 300 MG CAP PO SCH ×2 (09:36→19:33)
[2023-02-15] MEDS: ARIPiprazole 15 MG TAB PO SCH (09:37)
[2023-02-15] MEDS: PANTOPRAZOLE 40 MG/10 ML VIAL IVP SCH ×2 (09:42→19:32)
[2023-02-15 12:15] LABS: Glucose,Whole Blood 221 mg/dL (70-110)
--- NOTE | 2023-02-15 14:59 | P.PN ---
Subjective Progress Note Date: 02/14/23 Principal diagnosis: Abdominal CT abdominal, enteritis Patient is a 72-year-old female with a past medical history significant for diabetes mellitus and hypertension history of depression she has not for any patient presenting to the [facility] ER last night for evaluation of epigastric abdominal pain that has been getting worse for the last 2 months however has been worsening for 2 days with associated vomiting, patient did have a CT of abdominal pelvis did show status post gastric bypass anastomosis of small bowel with the stomach small bowel limb is dilated measuring up to 6.2 cm with wall thickening and concerning for enteritis. On today's evaluation that is 02/14/2023 the patient remains to be afebrile, patient is breathing comfortably on room air , patient still complaining of nausea unable to keep certain fluid down and epigastric abdominal pain no diarrhea no chest pain shortness of breath or cough and no bowel movement Objective - Vital Signs Vital signs: Vital Signs Temp 98.7 F 02/14/23 07:00 Pulse 68 02/14/23 08:00 Resp 15 02/14/23 08:00 BP 149/76 02/14/23 07:00 Pulse Ox 91 L 02/14/23 07:00 FiO2 Intake & Output 02/13/23 02/14/23 02/14/23 18:59 06:59 18:59 Intake Total 236 222 118 Balance 236 222 118 Weight 68.039 kg Intake: Oral 236 222 118 Other: Voiding Method Toilet Toilet Toilet # Voids 2 2 # Bowel Movements 1 - Exam GENERAL DESCRIPTION: An elderly female lying in bed in no distress RESPIRATORY SYSTEM: Unlabored breathing , decreased breath sounds at bases HEART: S1 S2 regular rate and rhythm , ABDOMEN: Soft , mild tenderness EXTREMITIES: No edema feet - Labs CBC & Chem 7: 02/14/23 05:46 02/14/23 05:46 Labs: Abnormal Lab Results - Last 24 Hours (Table) 02/13/23 02/14/23 02/14/23 Range/Units 21:49 05:46 05:46 RBC 3.76 L (4.10-5.20) X 10*6/uL Hgb 11.3 L (12.0-15.0) d/dL Hct 34.5 L (37.2-46.3) % Monocytes # 1.26 H (0.20-1.00) X 10*3/uL Eosinophils # 0.44 H (0.04-0.35) X 10*3/uL BUN <3.5 L (9.0-27.0) mg/dL BUN/Creatinine Ratio <5.83 L (12.00-20.00) Ratio POC Glucose (mg/dL) 182 H (70-110) mg/dL Calcium 8.6 L (8.7-10.3) mg/dL Total Protein 4.3 L (6.2-8.2) d/dL Albumin 2.7 L (3.8-4.9) d/dL 02/14/23 Range/Units 11:33 RBC (4.10-5.20) X 10*6/uL Hgb (12.0-15.0) d/dL Hct (37.2-46.3) % Monocytes # (0.20-1.00) X 10*3/uL Eosinophils # (0.04-0.35) X 10*3/uL BUN (9.0-27.0) mg/dL BUN/Creatinine Ratio (12.00-20.00) Ratio POC Glucose (mg/dL) 199 H (70-110) mg/dL Calcium (8.7-10.3) mg/dL Total Protein (6.2-8.2) d/dL Albumin (3.8-4.9) d/dL Assessment and Plan (1) Abnormal abdominal CT scan Current Visit: Yes Status: Acute Code(s): R93.5 - ABN FINDINGS ON DX IMAGING OF ABD REGIONS, INC RETROPERITON SNOMED Code(s): 28217465339180915 (2) Enteritis Current Visit: Yes Status: Acute Code(s): K52.9 - NONINFECTIVE GASTROENTERITIS AND COLITIS, UNSPECIFIED SNOMED Code(s): 51805187 Plan: 1patient to the hospital abdominal pain and vomiting in this patient who did have a history of gastric bypass abnormality was seen on the CT with dilatation of the portion of the small bowel questionably related to obstruction and there is concern for possible enteritis possible infectious versus ischemia need to be rule out, we will need to cover for the enteric gram-negative to be the likely pathogen 2Patient is currently covered with the Zosyn , [facility] Dr. Hernandez at this facility for any further recommendation Time with Patient: Less than 30
--- NOTE | 2023-02-15 15:00 | P.PN ---
Subjective Progress Note Date: 02/15/23 Principal diagnosis: Abdominal CT abdominal, enteritis Patient is a 72-year-old female with a past medical history significant for diabetes mellitus and hypertension history of depression she has not for any patient presenting to the [facility] ER last night for evaluation of epigastric abdominal pain that has been getting worse for the last 2 months however has been worsening for 2 days with associated vomiting, patient did have a CT of abdominal pelvis did show status post gastric bypass anastomosis of small bowel with the stomach small bowel limb is dilated measuring up to 6.2 cm with wall thickening and concerning for enteritis. On today's evaluation that is 02/15/2023 the patient continues to be afebrile, patient is breathing comfortably on room air , patient may symptom remains to be nausea unable to keep certain fluid down denies any worsening epigastric abdominal pain no diarrhea no chest pain shortness of breath or cough and no bowel movement Objective - Vital Signs Vital signs: Vital Signs Temp 98.9 F 02/15/23 07:00 Pulse 73 02/15/23 07:00 Resp 16 02/15/23 08:00 BP 130/82 02/15/23 07:00 Pulse Ox 93 L 02/15/23 07:00 FiO2 Intake & Output 02/14/23 02/15/23 02/15/23 18:59 06:59 18:59 Intake Total 236 240 Balance 236 240 Weight 68.039 kg Intake: Oral 236 240 Other: Voiding Method Toilet Toilet # Voids 4 2 # Bowel Movements 1 - Exam GENERAL DESCRIPTION: An elderly female lying in bed in no distress RESPIRATORY SYSTEM: Unlabored breathing , decreased breath sounds at bases HEART: S1 S2 regular rate and rhythm , ABDOMEN: Soft , mild tenderness EXTREMITIES: No edema feet - Labs CBC & Chem 7: 02/14/23 05:46 02/14/23 05:46 Labs: Abnormal Lab Results - Last 24 Hours (Table) 02/14/23 02/15/23 Range/Units 21:06 12:15 POC Glucose (mg/dL) 127 H 221 H (70-110) mg/dL Assessment and Plan (1) Abnormal abdominal CT scan Current Visit: Yes Status: Acute Code(s): R93.5 - ABN FINDINGS ON DX IMAGING OF ABD REGIONS, INC RETROPERITON SNOMED Code(s): 88567716671172397 (2) Enteritis Current Visit: Yes Status: Acute Code(s): K52.9 - NONINFECTIVE GASTROENTERITIS AND COLITIS, UNSPECIFIED SNOMED Code(s): 98402795 Plan: 1patient to the hospital abdominal pain and vomiting in this patient who did have a history of gastric bypass abnormality was seen on the CT with dilatation of the portion of the small bowel questionably related to obstruction and there is concern for possible enteritis possible infectious versus ischemia need to be rule out, we will need to cover for the enteric gram-negative to be the likely pathogen 2Patient is currently covered with the Zosyn , [facility] at [facility], consult has been placed waiting for evaluation and recommendation Time with Patient: Less than 30
[2023-02-15 15:22] LABS: ALT 25 U/L (4-34); AST 36 U/L (14-36); African American GFR (CKD) >90 (>60 ml/min/1.73 sqM); Albumin 2.3 g/dL (3.5-5.0); Albumin/Globulin Ratio 1.1; Alkaline Phosphatase 65 U/L (38-126); Anion Gap 2 mmol/L; Blood Urea Nitrogen <2 mg/dL (7-17); Calcium 8.3 mg/dL (8.4-10.2); Carbon Dioxide 29 mmol/L (22-30); Chloride 105 mmol/L (98-107); Globulin 2.1 g/dL; Glucose 136 mg/dL (74-99); Magnesium 1.7 mg/dL (1.6-2.3); Non-African American GFR(CKD) >90 (>60 ml/min/1.73 sqM); Phosphorus 2.1 mg/dL (2.5-4.5); Potassium 3.7 mmol/L (3.5-5.1); Sodium 136 mmol/L (137-145); Total Bilirubin 0.5 mg/dL (0.2-1.3); Total Protein 4.4 g/dL (6.3-8.2)
[2023-02-15 15:47] LABS: Glucose,Whole Blood 81 mg/dL (70-110)
[2023-02-15 17:12] LABS: Glucose,Whole Blood 97 mg/dL (70-110)
--- NOTE | 2023-02-15 19:21 | P.PN ---
Subjective Progress Note Date: 02/13/23 HISTORY OF PRESENT ILLNESS: This is a 78-year-old female with a previous medical history signif icant for diabetes mellitus type 2 with diabetic polyneuropathy, hypertension and hypertensive cardio vascular disease, hyperlipidemia, history of bipolar disorder depressed type, osteoporosis, history of gastric bypass surgery many years ago more than 11 years ago, patient has been having increased abdominal pain associated with nausea and recently not able to eat much and vomiting according to the patient for the past 2 month, over the last 2 days got worse [facility] ended up having a computed tomography scan of the abdomen and pelvis that didn't show the limb of the Tea-en-Y surgery with dilatation up to 6.2 cm concerning for enter itis versus ischemia, patient was seen in consultation by general surgery who recommended for the patient to be transferred to a tertiary care center like [facility] since they are not able to provide this service in the hospital and she needed to be evaluated by [facility] for further recommend addition patient continues to have abdominal pain associated with nausea and vomiting, patient has not been able to keep anything down, she has been treated with IV antibiotic and IV fluid resuscitation and antibiotic in the form of Zosyn and metronidazole, her white counts are back to normal, her labs are normal, attempted to transfer the patient through the transfer team to [facility] we will hopefully get some information about her tomorrow morning. 02/09: Patient continues to be nauseated with vomiting on liquid diet and we are still awaiting the transfer to [facility] as there is no bed available, she continues to be on IVF we will switch to 0.45 saline at 75 cc/h we will continue with current treatment plan. 02/10 : [facility] Called today and there was no bed available, we will continue to monitor and we will continue with supportive care with ABX and IVF and anti-emetics and await bed availability for transfer 02/13: Patient is laying down in bed she continues to have abdominal pain associated with some nausea and episodic vomiting, she has been tolerating clear liquid diet, she has been maintained on Zosyn, she has been followed by infectious disease, general surgery recommended to consult Dr. Bartholomew or send the patient to a different center since [facility] is negative able to take the patient, I discussed this plan with the patient and her caregiver and we will plan to send the patient down either to [facility] or [facility]. REVIEW OF SYSTEMS: Constitutional: No documented fever, no chills, no night sweats. No weight change. No weakness, fatigue or lethargy. No daytime sleepiness. HEENT: No headache. No blurred vision or double vision, no loss of vision. No loss of Hearing, no ringing in the ears, no dizziness. No nasal drainage or congestion. No epistaxis. No sore throat. Lungs: No shortness of breath, no cough, no sputum production. No wheezing. Reports dyspnea with activity. Cardiovascular: No chest pain, no lower extremity edema. No palpitations. No paroxysmal nocturnal dyspnea. No orthopnea. No lightheadedness or dizziness. No syncopal episodes. Abdominal: Reports abdominal pain. positive for nausea, vomiting. No diarrhea. No constipation. No bloody or tarry stools reports loss of appetite. Genitourinary: No dysuria, increased frequency, urgency. No urinary retention. Musculoskeletal: No myalgias. No muscle weakness, no gait dysfunction, no frequent falls. No back pain. No neck pain. Integumentary: No wounds, no lesions. No rash or pruritus. No unusual bruising. No change in hair or nails. Neurologic: No aphasia. No facial droop. No change in mentation. No head injury. No headache. No paralysis. No paresthesia. Psychiatric: No depression. No anxiety. No mood swings. Endocrine: No abnormal blood sugars. No weight change. PHYSICAL EXAMINATION: General: 72-year-old female laying down in bed in no distress. HEENT: Head is atraumatic, normocephalic, pupils were equal round reactive to light and recommendation, extraocular muscle movement were intact, sclera nonicteric, conjunctivae were pale, mucous membranes of the mouth are somewhat dry. Neck: Supple, no JVP, normal carotid upstroke bilaterally, no lymphadenopathy. Chest: Decreased breath sounds at the bases, few rhonchi, no expiratory wheezes, no chest wall tenderness, no intercostal retractions. Heart: First heart sound is normal, second heart sounds normal there is KINZA 2/6 located at the left sternal border Abdomen: Soft, mild epigastric tenderness, nondistended, positive bowel sounds. Extremities: There is no edema no calf tenderness DP +2 bilaterally. Neurologic examination: Patient is awake alert and oriented X 3, cranial nerves II-12 appear grossly intact, muscle power were 5 out of 5 in upper extremities and 5 out of 5 in bilateral lower extremities, deep tendon reflexes normal bilaterally. ASSESSMENT AND PLAN: 1. Chronic abdominal pain in a patient with a prior history of gastric bypass surgery more than 8 years ago with dilatation of the small bowel limb to 6.2 cm suggestive of enteritis versus ischemia. Continue patient on IV antibiotic in the form of Rocephin discontinue metronidazole continue patient on IV fluid resuscitation, but has had 2 full liquid diet, try to transfer the patient to [facility] 2. Hypertension and hypertensive cardiovascular disease. Continue patient on losartan 50 mg once every day, continue metoprolol ER 50 mg once every day and amlodipine 5 minute gram orally once every day, monitor the patient pressure very closely 3. Hyperlipidemia. Continue atorvastatin 40 mg orally once every day per 4. Diabetes mellitus type 2 . Restart the patient on Lantus 12 units at bedtime along with NovoLog 6 units before each meal 3 times every day, monitor the patient blood glucose level III times every day per 5. Diabetic polyneuropathy. Continue gabapentin 600 mg orally twice every day. 6. CAD. Continue metoprolol ER 50 mg once every day, continue as a Sorbide mononitrate 60 mg orally once every day, continue atorvastatin 40 mg once every day, patient has been following with Dr. Florian. 7. Bipolar disorder depressed. Continue Abilify 7.5 mg once every day, Lexapro 20 mg once every day, bupropion 300 mg orally once every day. Patient has been under the care of psychiatry. 8. DVT prophylaxis. Continue heparin 5000 units subcutaneously every 12 hours. 9. GI prophylaxis. Continue Protonix 40 mg orally once every day. 10. Plan is to transfer the patient to [facility] tomorrow morning. Transfer team contacted and transfer is in progress. 11. Patient is full code 12. Family updated about the current situation. 13. Plan for transfer to [facility] where bariatric surgery is available for Tea-en-Y revision. Objective - Vital Signs Vital signs: Vital Signs Temp 98.4 F 02/14/23 14:27 Pulse 65 02/14/23 14:27 Resp 15 02/14/23 14:27 BP 113/56 02/14/23 14:27 Pulse Ox 96 02/14/23 14:27 FiO2 Intake & Output 02/14/23 02/14/23 02/15/23 06:59 18:59 06:59 Intake Total 222 236 Balance 222 236 Intake: Oral 222 236 Other: Voiding Method Toilet Toilet # Voids 2 4 # Bowel Movements 1 1 - Labs CBC & Chem 7: 02/14/23 05:46 02/15/23 14:49 Labs: Abnormal Lab Results - Last 24 Hours (Table) 02/13/23 02/14/23 02/14/23 Range/Units 21:49 05:46 05:46 RBC 3.76 L (4.10-5.20) X 10*6/uL Hgb 11.3 L (12.0-15.0) d/dL Hct 34.5 L (37.2-46.3) % Monocytes # 1.26 H (0.20-1.00) X 10*3/uL Eosinophils # 0.44 H (0.04-0.35) X 10*3/uL BUN <3.5 L (9.0-27.0) mg/dL BUN/Creatinine Ratio <5.83 L (12.00-20.00) Ratio POC Glucose (mg/dL) 182 H (70-110) mg/dL Calcium 8.6 L (8.7-10.3) mg/dL Total Protein 4.3 L (6.2-8.2) d/dL Albumin 2.7 L (3.8-4.9) d/dL 02/14/23 Range/Units 11:33 RBC (4.10-5.20) X 10*6/uL Hgb (12.0-15.0) d/dL Hct (37.2-46.3) % Monocytes # (0.20-1.00) X 10*3/uL Eosinophils # (0.04-0.35) X 10*3/uL BUN (9.0-27.0) mg/dL BUN/Creatinine Ratio (12.00-20.00) Ratio POC Glucose (mg/dL) 199 H (70-110) mg/dL Calcium (8.7-10.3) mg/dL Total Protein (6.2-8.2) d/dL Albumin (3.8-4.9) d/dL
--- NOTE | 2023-02-15 19:22 | P.PN ---
Subjective Progress Note Date: 02/14/23 HISTORY OF PRESENT ILLNESS: This is a 78-year-old female with a previous medical history signif icant for diabetes mellitus type 2 with diabetic polyneuropathy, hypertension and hypertensive cardio vascular disease, hyperlipidemia, history of bipolar disorder depressed type, osteoporosis, history of gastric bypass surgery many years ago more than 11 years ago, patient has been having increased abdominal pain associated with nausea and recently not able to eat much and vomiting according to the patient for the past 2 month, over the last 2 days got worse [facility] ended up having a computed tomography scan of the abdomen and pelvis that didn't show the limb of the Tea-en-Y surgery with dilatation up to 6.2 cm concerning for enter itis versus ischemia, patient was seen in consultation by general surgery who recommended for the patient to be transferred to a tertiary care center like [facility] since they are not able to provide this service in the hospital and she needed to be evaluated by [facility] for further recommend addition patient continues to have abdominal pain associated with nausea and vomiting, patient has not been able to keep anything down, she has been treated with IV antibiotic and IV fluid resuscitation and antibiotic in the form of Zosyn and metronidazole, her white counts are back to normal, her labs are normal, attempted to transfer the patient through the transfer team to [facility] we will hopefully get some information about her tomorrow morning. 02/09: Patient continues to be nauseated with vomiting on liquid diet and we are still awaiting the transfer to [facility] as there is no bed available, she continues to be on IVF we will switch to 0.45 saline at 75 cc/h we will continue with current treatment plan. 02/10 : [facility] Called today and there was no bed available, we will continue to monitor and we will continue with supportive care with ABX and IVF and anti-emetics and await bed availability for transfer 02/13: Patient is laying down in bed she continues to have abdominal pain associated with some nausea and episodic vomiting, she has been tolerating clear liquid diet, she has been maintained on Zosyn, she has been followed by infectious disease, general surgery recommended to consult Dr. Bartholomew or send the patient to a different center since [facility] is negative able to take the patient, I discussed this plan with the patient and her caregiver and we will plan to send the patient down either to [facility] or [facility]. 02/14: Patient is doing better today, she denies any chest pain, shortness with, she is moving around a bit, she appears to be more weak, her protein is low, we will continue to wait for the availability of the transfer to a tertiary care center, continue current treatment plan for now. REVIEW OF SYSTEMS: Constitutional: No documented fever, no chills, no night sweats. No weight change. No weakness, fatigue or lethargy. No daytime sleepiness. HEENT: No headache. No blurred vision or double vision, no loss of vision. No loss of Hearing, no ringing in the ears, no dizziness. No nasal drainage or congestion. No epistaxis. No sore throat. Lungs: No shortness of breath, no cough, no sputum production. No wheezing. Reports dyspnea with activity. Cardiovascular: No chest pain, no lower extremity edema. No palpitations. No paroxysmal nocturnal dyspnea. No orthopnea. No lightheadedness or dizziness. No syncopal episodes. Abdominal: Reports abdominal pain. positive for nausea, vomiting. No diarrhea. No constipation. No bloody or tarry stools reports loss of appetite. Genitourinary: No dysuria, increased frequency, urgency. No urinary retention. Musculoskeletal: No myalgias. No muscle weakness, no gait dysfunction, no frequent falls. No back pain. No neck pain. Integumentary: No wounds, no lesions. No rash or pruritus. No unusual bruising. No change in hair or nails. Neurologic: No aphasia. No facial droop. No change in mentation. No head injury. No headache. No paralysis. No paresthesia. Psychiatric: No depression. No anxiety. No mood swings. Endocrine: No abnormal blood sugars. No weight change. PHYSICAL EXAMINATION: General: 72-year-old female laying down in bed in no distress. HEENT: Head is atraumatic, normocephalic, pupils were equal round reactive to light and recommendation, extraocular muscle movement were intact, sclera nonicteric, conjunctivae were pale, mucous membranes of the mouth are somewhat dry. Neck: Supple, no JVP, normal carotid upstroke bilaterally, no lymphadenopathy. Chest: Decreased breath sounds at the bases, few rhonchi, no expiratory wheezes, no chest wall tenderness, no intercostal retractions. Heart: First heart sound is normal, second heart sounds normal there is KINZA 2/6 located at the left sternal border Abdomen: Soft, mild epigastric tenderness, nondistended, positive bowel sounds. Extremities: There is no edema no calf tenderness DP +2 bilaterally. Neurologic examination: Patient is awake alert and oriented X 3, cranial nerves II-12 appear grossly intact, muscle power were 5 out of 5 in upper extremities and 5 out of 5 in bilateral lower extremities, deep tendon reflexes normal bilaterally. ASSESSMENT AND PLAN: 1. Chronic abdominal pain in a patient with a prior history of gastric bypass surgery more than 8 years ago with dilatation of the small bowel limb to 6.2 cm suggestive of enteritis versus ischemia. Continue patient on IV antibiotic in the form of Rocephin discontinue metronidazole continue patient on IV fluid resuscitation, but has had 2 full liquid diet, try to transfer the patient to tertiary care center 2. Hypertension and hypertensive cardiovascular disease. Continue patient on losartan 50 mg once every day, continue metoprolol ER 50 mg once every day and amlodipine 5 minute gram orally once every day, monitor the patient pressure very closely 3. Hyperlipidemia. Continue atorvastatin 40 mg orally once every day per 4. Diabetes mellitus type 2 . Restart the patient on Lantus 12 units at bedtime along with NovoLog 6 units before each meal 3 times every day, monitor the patient blood glucose level III times every day per 5. Diabetic polyneuropathy. Continue gabapentin 600 mg orally twice every day. 6. CAD. Continue metoprolol ER 50 mg once every day, continue as a Sorbide mononitrate 60 mg orally once every day, continue atorvastatin 40 mg once every day, patient has been following with Dr. Florian. 7. Bipolar disorder depressed. Continue Abilify 7.5 mg once every day, Lexapro 20 mg once every day, bupropion 300 mg orally once every day. Patient has been under the care of psychiatry. 8. DVT prophylaxis. Continue heparin 5000 units subcutaneously every 12 hours. 9. GI prophylaxis. Continue Protonix 40 mg orally once every day. 10. Plan is to transfer the patient to [facility] tomorrow morning. Transfer team contacted and transfer is in progress. 11. Patient is full code 12. Family updated about the current situation. 13. Plan for transfer to tertiary care center where bariatric surgery is available for Tea-en-Y revision. Objective - Vital Signs Vital signs: Vital Signs Temp 98.7 F 02/15/23 14:48 Pulse 84 02/15/23 14:48 Resp 16 02/15/23 14:48 BP 110/61 02/15/23 14:48 Pulse Ox 95 02/15/23 14:48 FiO2 Intake & Output 02/15/23 02/15/23 02/16/23 06:59 18:59 06:59 Intake Total 1677 Balance 1677 Weight 68.039 kg Intake: Intake, IV Titration 350 Amount Sodium Chloride 0.45% 1, 350 000 ml @ 50 mls/hr IV . Q20H [facility] Rx#:[id number] Oral 1327 Other: Voiding Method Toilet # Voids 2 - Labs CBC & Chem 7: 02/14/23 05:46 02/15/23 14:49 Labs: Abnormal Lab Results - Last 24 Hours (Table) 02/14/23 02/15/23 02/15/23 Range/Units 21:06 12:15 14:49 Sodium 136 L (137-145) mmol/L BUN <2 L (7-17) mg/dL Glucose 136 H (74-99) mg/dL POC Glucose (mg/dL) 127 H 221 H (70-110) mg/dL Calcium 8.3 L (8.4-10.2) mg/dL Phosphorus 2.1 L (2.5-4.5) mg/dL Total Protein 4.4 L (6.3-8.2) g/dL Albumin 2.3 L (3.5-5.0) g/dL
--- NOTE | 2023-02-15 19:25 | P.DS ---
Providers Date of admission: 02/13/23 10:52 Expected date of discharge: 02/15/23 Attending physician: Shawn Gottlieb Consults: 02/06/23 10:09 Consult Physician Urgent Consulting Provider: Claudio Gordillo Consult Reason/Comments: enteritis, elevated lactic acid, abd pain Do you want consulting provider notified?: Yes 02/12/23 13:10 Consult Physician Routine Consulting Provider: Clair Reynoso Consult Reason/Comments: abdominal pain, re-eval. ?advance in diet Do you want consulting provider notified?: Yes 02/14/23 19:08 Consult Physician Routine Consulting Provider: Bonny Hernandez Consult Reason/Comments: RNY surgery with intractable Nausea and possible in need for dilatation Do you want consulting provider notified?: Yes Primary care physician: Shawn Gottlieb Hospital Course: HISTORY OF PRESENT ILLNESS: This is a 78-year-old female with a previous medical history significant for diabetes mellitus type 2 with diabetic polyneuropathy, hypertension and hypertensive cardio vascular disease, hyperlipidemia, history of bipolar disorder depressed type, osteoporosis, history of gastric bypass surgery many years ago more than 11 years ago, patient has been having increased abdominal pain associated with nausea and recently not able to eat much and vomiting according to the patient for the past 2 month, over the last 2 days got worse ended up coming to the emergency department at [facility] ended up having a computed tomography scan of the abdomen and pelvis that didn't show the limb of the Tea-en-Y surgery with dilatation up to 6.2 cm concerning for enteritis versus ischemia, patient was seen in consultation by general surgery who recommended for the patient to be transferred to a tertiary care center like [facility] since they are not able to provide this service in the hospital and she needed to be evaluated by [facility] for further recommend addition patient continues to have abdominal pain associated with nausea and vomiting, patient has not been able to keep anything down, she has been treated with IV antibiotic and IV fluid resuscitation and antibiotic in the form of Zosyn and metronidazole, her white counts are back to normal, her labs are normal, attempted to transfer the patient through the transfer team to [facility] we will hopefully get some information about her tomorrow morning. 02/09: Patient continues to be nauseated with vomiting on liquid diet and we are still awaiting the transfer to [facility] as there is no bed available, she continues to be on IVF we will switch to 0.45 saline at 75 cc/h we will continue with current treatment plan. 02/10 : [facility] Called today and there was no bed available, we will c ontinue to monitor and we will continue with supportive care with ABX and IVF and anti-emetics and await bed availability for transfer 02/13: Patient is laying down in bed she continues to have abdominal pain associated with some nausea and episodic vomiting, she has been tolerating clear liquid diet, she has been maintained on Zosyn, she has been followed by infectious disease, general surgery recommended to consult Dr. Bartholomew or send the patient to a different center since [facility] is negative able to take the patient, I discussed this plan with the patient and her caregiver and we will plan to send the patient down either to [facility] or [facility]. 02/14: Patient is doing better today, she denies any chest pain, shortness with, she is moving around a bit, she appears to be more weak, her protein is low, we will continue to wait for the availability of the transfer to a tertiary care center, continue current treatment plan for now. 02/15: Contacted [facility] recommended for the patient to go to [facility] where she had her surgery in 2014, contacted [facility] the surgery is not available and staff over there, and the surgeon test automation architect does not feel comfortable taking care of Tea-en-Y revision, he recommended to transfer the patient [facility], [facility] therefore she will be transferred down there for further care. Discharge diagnoses: 1. Chronic abdominal pain in a patient with a prior history of gastric bypass surgery more than 8 years ago with dilatation of the small bowel limb to 6.2 cm suggestive of enteritis versus ischemia. 2. Hypertension and hypertensive cardiovascular disease. 3. Hyperlipidemia. 4. Diabetes mellitus type 2 . 5. Diabetic polyneuropathy. 6. CAD. 7. Bipolar disorder depressed. Patient Condition at Discharge: Good Plan - Discharge Summary Discharge Rx Participant: No New Discharge Prescriptions: No Action Isosorbide Mononitrate ER [Imdur] 60 mg PO DAILY buPROPion XL [Wellbutrin XL] 300 mg PO DAILY Insulin Lispro [humaLOG Kwikpen] 6 unit SQ AC-TID Omeprazole 40 mg PO AC-BRKFST haloperidoL [Haldol] 1 mg PO HS Atorvastatin [Lipitor] 40 mg PO HS Gabapentin 600 mg PO BID Escitalopram [Lexapro] 20 mg PO DAILY Losartan [Cozaar] 50 mg PO DAILY ARIPiprazole [Abilify] 15 mg PO DAILY amLODIPine [Norvasc] 5 mg PO DAILY Alendronate Sodium [Fosamax] 70 mg PO Q7D Metoprolol Succinate (ER) [Toprol XL] 50 mg PO DAILY Discharge Medication List ARIPiprazole [Abilify] 15 mg PO DAILY 02/06/23 [History] Alendronate Sodium [Fosamax] 70 mg PO Q7D 02/06/23 [History] Atorvastatin [Lipitor] 40 mg PO HS 02/06/23 [History] Escitalopram [Lexapro] 20 mg PO DAILY 02/06/23 [History] Gabapentin 600 mg PO BID 02/06/23 [History] Insulin Lispro [humaLOG Kwikpen] 6 unit SQ AC-TID 02/06/23 [History] Isosorbide Mononitrate ER [Imdur] 60 mg PO DAILY 02/06/23 [History] Losartan [Cozaar] 50 mg PO DAILY 02/06/23 [History] Metoprolol Succinate (ER) [Toprol XL] 50 mg PO DAILY 02/06/23 [History] Omeprazole 40 mg PO AC-BRKFST 02/06/23 [History] amLODIPine [Norvasc] 5 mg PO DAILY 02/06/23 [History] buPROPion XL [Wellbutrin XL] 300 mg PO DAILY 02/06/23 [History] haloperidoL [Haldol] 1 mg PO HS 02/06/23 [History] Follow up Appointment(s)/Referral(s): Shawn Gottlieb MD [Primary Care Provider] - 1-2 days
[2023-02-15] MEDS: ATORVASTATIN 40 MG TAB PO SCH (19:33)
[2023-02-15 19:49] LABS: Glucose,Whole Blood 195 mg/dL (70-110)
[2023-02-16] MEDS: METOCLOPRAMIDE 5 MG/ML 2 ML VIAL IVP SCH ×2 (01:11→06:18)
[2023-02-16] MEDS: PIPERACILLIN-TAZOBACTAM 3.375 GM in SODIUM CHLORIDE 0.9% 100 ML IVPB SCH (01:11)
[2023-02-16 02:34] VITALS: BP 145/77; PULSE 66; RESP 14; TEMP 97.8
[2023-02-16 06:20] LABS: Ionized Calcium 5.3 mg/dL (4.5-5.3)
[2023-02-16] MEDS: MORPHINE SULFATE 4 MG/ML SYRINGE IV PRN (06:27)
[2023-02-16 06:29] LABS: African American GFR (CKD) >90 (>60 ml/min/1.73 sqM); Anion Gap 2 mmol/L; Blood Urea Nitrogen <2 mg/dL (7-17); Calcium 8.8 mg/dL (8.4-10.2); Carbon Dioxide 32 mmol/L (22-30); Chloride 108 mmol/L (98-107); Glucose 88 mg/dL (74-99); Magnesium 1.8 mg/dL (1.6-2.3); Non-African American GFR(CKD) >90 (>60 ml/min/1.73 sqM); Phosphorus 2.7 mg/dL (2.5-4.5); Potassium 3.7 mmol/L (3.5-5.1); Sodium 142 mmol/L (137-145)
[2023-02-16 06:45] LABS: Glucose,Whole Blood 81 mg/dL (70-110)
[2023-02-16] MEDS: INSULIN ASPART (NovoLOG) 100 UNIT/ML VIAL SQ SCH (07:09)
== END 2023-02-16 07:42 | disposition short-term general hospital (02) | DRG 394 ==
LOC: EC 22:38 → 6NMEDSUR 02-06 03:37 → OBSVTOIN 02-13 10:52
PROVIDERS: ADMIT Internal Medicine; ATTEND Internal Medicine
DX: K55.9 Vascular disorder of intestine, unspecified (principal); F03.93 Unspecified dementia, unspecified severity, with mood disturbance; F31.30 Bipolar disorder, current episode depressed, mild or moderate severity, unspecified; M81.0 Age-related osteoporosis without current pathological fracture; I25.10 Atherosclerotic heart disease of native coronary artery without angina pectoris; I11.9 Hypertensive heart disease without heart failure; G89.29 Other chronic pain; F20.9 Schizophrenia, unspecified; E78.5 Hyperlipidemia, unspecified; E11.42 Type 2 diabetes mellitus with diabetic polyneuropathy; K52.9 Noninfective gastroenteritis and colitis, unspecified; Z79.4 Long term (current) use of insulin; Z79.83 Long term (current) use of bisphosphonates; Z79.899 Other long term (current) drug therapy; Z98.84 Bariatric surgery status; Z88.5 Allergy status to narcotic agent
CPT/HCPCS: 36415; 74019; 74022; 74177; 80048; 80053; 82150; 82330; 83605; 83690; 83735; 84100; 84478; 84484; 85025; 85027; 85610; 85730; 93005; 96361; 96374; 96375; 96376; 99285